=== PATIENT | male | born 1940 | race Hispanic/Latino ===

== ENCOUNTER 2017-12-10 13:18 | Inpatient (IN) | payer MEDICARE, BC ==
[2017-12-10 13:34] VITALS: BMI 34.7
[2017-12-10] MEDS ORDERED: Piperacill/Tazo 4.5gm in NS 4.5 GM/100 ML BAG IVPB STA (14:12)
[2017-12-10] MEDS ORDERED: Sodium Chloride 0.9% 500 ML IV STA (14:17)
--- NOTE | 2017-12-10 14:20 | ED PDOC ---
Arrival/HPI - General Chief Complaint: Fever Time Seen by Provider: 12/10/17 14:03 Historian: Patient - History of Present Illness Narrative History of Present Illness (Text): 12/10/17 14:21 pt p/w + ~ 1 day onset of not feeling well; pt states he has been bedriddened, and doesnt want to get up; pt states he is very weak/fatigued; pt states + chills/sweats, + shivers, noted fever in the ED; pt states severe body aches/ pain; and headaches (general), at most pain is 5/10; pt states no appetite, + nausea and vomited today; pt states no cp/sob, ? palpitations, no abd pain, no urinary/bowel changes, no rashes, no gross bleeding, no fall/trauma/sick contact , ? travel (to [place] pt contacted his PCP today and was directed to come to ED for further eval pt states no new rashes, no LOC, + dizziness/lightheadedness pt states no other complaints pt is here for further eval. PCP: Dr Ball Flu shot up to date pneumovac vaccine, up to date Time/Duration: 24 hours Symptom Onset: Sudden Symptom Course: Unchanged, Worsening Quality: Other (chills/sweats) Severity Level: 5, Moderate Activities at Onset: Rest Context: Home Past Medical History - Provider Review Nursing Documentation Reviewed: Yes - Travel History Have you recently traveled outside w/in the past 3 mons?: No - Past History Past History: No Previous - Infectious Disease Hx of Infectious Diseases: None - Reproductive Currently Lactating: No - Cardiac Hx Hypertension: Yes - Neurological Hx Paralysis: No - Hematological/Oncological Hx Blood Transfusions: No - Musculoskeletal/Rheumatological Hx Musculoskeletal Disorders: Yes - Psychiatric Hx Substance Use: No - Surgical History Other/Comment: bilateral knee replacement - Anesthesia Hx Anesthesia Reactions: No Hx Malignant Hyperthermia: No - Suicidal Assessment Feels Threatened In Home Enviroment: No Family/Social History - Physician Review Nursing Documentation Reviewed: Yes Family/Social History: No Known Family HX Smoking Status: Former Smoker Hx Alcohol Use: Yes (6 BEERS NIGHTLY) Hx Substance Use: No Hx Substance Use Treatment: No Allergies/Home Meds Allergies/Adverse Reactions: Allergies No Known Allergies Allergy (Verified 05/31/12 11:57) Home Medications: Home Meds Medication Instructions Recorded Confirmed RX: Amlodipine Besylate 5 mg PO DAILY 05/31/12 12/10/17 Review of Systems - Review of Systems Constitutional: Fatigue, Fevers, Night Sweats Eyes: Normal ENT: Normal Respiratory: Normal Cardiovascular: Normal Gastrointestinal: Nausea, Vomiting Genitourinary Male: Normal Musculoskeletal: Other (diffuse body pain) Skin: Normal Neurological: Headache, Dizziness. absent: Speech Changes, Facial Droop Endocrine: Normal Hemo/Lymphatic: Normal Psychiatric: Normal Physical Exam Vital Signs Reviewed: Yes Vital Signs Temp Pulse Resp BP Pulse Ox 12/10/17 17:20 99.5 F 80 18 136/74 95 12/10/17 13:18 101.7 F H 93 H 18 105/68 95 Temperature: Febrile Blood Pressure: Hypotensive Pulse: Regular Respiratory Rate: Normal Appearance: Positive for: Well-Appearing, Uncomfortable, Other (uncomfortable, resting in bed, alert/awake, GCS = 15, oriented x 3, cooperative) Pain Distress: Mild Mental Status: Positive for: Alert and Oriented X 3 - Systems Exam Head: Present: Atraumatic, Normocephalic Pupils: Present: PERRL, Other (no nystagmus, no photophobia, sclera anicteric, visual field intact b/l) Extroacular Muscles: Present: EOMI Conjunctiva: Present: Normal Ears: Present: Normal Mouth: Present: Dry, Other (fair dentitions, dry oral mucosa, no drooling/ stridor, no exudate/lesions, uvula/tongue are midline) Pharnyx: Present: Normal Nose (External): Present: Atraumatic Nose (Internal): Present: Normal Inspection Neck: Present: Normal Range of Motion, Trachea Midline, Other (no nuchal rigidity, no menigneal signs). No: Meningeal Signs, MIDLINE TENDERNESS Respiratory/Chest: Present: Clear to Auscultation, Good Air Exchange, Other ( CTA b/l, no w/r/r, no tachypenia, no accessory muscle use noted). No: Respiratory Distress Cardiovascular: Present: Regular Rate and Rhythm, Normal S1, S2. No: Murmurs Abdomen: Present: Normal Bowel Sounds, Other (well nourished male, no focal tenderness, no blanton's sign, no mcburney's point tenderness, no masses/rebound/ guarding/rigidity) Back: Present: Normal Inspection. No: CVA Tenderness, Midline Tenderness Upper Extremity: Present: Normal Inspection, Normal ROM, NORMAL PULSES, Neurovascularly Intact Lower Extremity: Present: Normal Inspection, NORMAL PULSES, Normal ROM, Neurovascularly Intact, Other (no gross deformities, + left lower leg skin erythema encompassing nearly 80% of body-surface area, no nettie's sign b/l, slight swelling noted to left lower leg (no pitting edema noted)). No: Nettie's Sign Neurological: Present: GCS=15, CN II-XII Intact, Speech Normal Skin: Present: Warm, Normal Color, Other (cap refill ~ 1 sec, as described above left lower ext skin changes; no lesions/ulcerations/petechiae) Psychiatric: Present: Alert, Oriented x 3 Medical Decision Making ED Course and Treatment: 12/10/17 14:19 Impression: fever/chills/sweats i have consider all the differential diagnosis regarding pt's chief medical complaints/clinical findings, including but are not limited to: fever/chills/ sweats A/P: left leg cellulitis, r/o other infec - labs - iv - cultures - xray - observe - supportive care 12/10/17 15:[address] Casillas, hospitalists partition setter, who is made aware of patients ED/medical presentation, agrees with admission; will see patient 1630 pt is doing well pt is not in any distress pt states he felt slightly improved pt is made aware of his medical results pt agrees with admission Re-evaluation Time: 17:09 Reassessment Condition: Improving,but remains with symptoms - Lab Interpretations Lab Results: 12/10/17 14:12 12/10/17 14:12 Lab Results 12/10/17 14:20: Influenza Typ A,B (EIA) Negative for flu a/b 12/10/17 14:12: Sodium 136, Chloride 102, Potassium 3.7, Carbon Dioxide 27, Anion Gap 12, BUN 20, Creatinine 1.1, Est GFR ( Amer) > 60, Est GFR (Non- Af Amer) > 60, Random Glucose 129 H, Calcium 9.5, Phosphorus 3.3, Magnesium 1.9 , Total Bilirubin 0.5, AST 40, ALT 32, Alkaline Phosphatase 56, Troponin I 0.02 , Total Protein 7.2, Albumin 3.8, Globulin 3.4, Albumin/Globulin Ratio 1.1 12/10/17 14:12: pO2 40, VBG pH 7.39, VBG pCO2 45.0, VBG HCO3 27.2, VBG Total CO2 28.6 H, VBG O2 Sat (Calc) 80.0 H, VBG Base Excess 1.7, VBG Potassium 3.6, Sodium 134.0, Chloride 102.0, Glucose 124 H, Lactate 1.1, FiO2 21.0, Venous Blood Potassium 3.6 12/10/17 14:12: PT 15.2 H, INR 1.33 H, APTT 33.5 12/10/17 14:12: WBC 13.8 H, RBC 3.92, Hgb 12.4 L, Hct 36.9 L, MCV 94.1, MCH 31.6 , MCHC 33.6, RDW 13.5, Plt Count 276, MPV 9.8, Gran % 91.8 H, Lymph % (Auto) 4.6 L, [place] % (Auto) 3.5, Eos % (Auto) 0.0 L, Baso % (Auto) 0.1, Gran # 12.67 H , Lymph # (Auto) 0.6 L, [place] # (Auto) 0.5, Eos # (Auto) 0.0, Baso # (Auto) 0.01 , Neutrophils % (Manual) 85 H, Band Neutrophils % 4 H, Lymphocytes % (Manual) 6 L, Atypical Lymphs % 3 H, Monocytes % (Manual) 2 I have reviewed the lab results: Yes Interpretation: All labs normal (slightly elevated WBCs) - RAD Interpretation Narrative RAD Interpretations (Text): 12/10/17 15:35 Chest X-ray: Creator : Sidney Farrar MD FINDINGS: LUNGS:No active pulmonary disease. PLEURA:No significant pleural effusion identified. No pneumothorax apparent. CARDIOVASCULAR:Normal. OSSEOUS STRUCTURES:No significant abnormalities. VISUALIZED UPPER ABDOMEN:Normal. OTHER FINDINGS:None. IMPRESSION: No active disease. 12/10/17 15:40 Tibia and Fibula x-ray: Creator : Sidney Farrar MD FINDINGS: BONES: There is a left knee prosthesis. There is no fracture or loosening around the prosthesis JOINT SPACES: Unremarkable. OTHER FINDINGS: None. IMPRESSION: Negative study Left leg Vascular duplex: NO DVT Radiology Orders: 12/10/17 14:13 CHEST TWO VIEWS (PA/LAT) [RAD] Stat 12/10/17 14:16 TIBIA FIBULA LEFT [RAD] Stat 12/10/17 14:17 DUPLEX LOWER EXTRM VEIN LEFT [US] Stat Jig Bore Operator: Radiologist - EKG Interpretation EKG Interpretation (Text): 12/10/17 14:20 NSR at 90 bpm, normal axis, no ectopy, diffuse low voltage inf leads, no st-t changes, ABNL EKG; no old ekg to compare with Interpreted by ED Physician: Yes Type: 12 lead EKG Comparison: No previous EKG avail. - Medication Orders Current Medication Orders: Acetaminophen (Tylenol 325mg Tab) 650 mg PO Q6H PRN PRN Reason: Fever >100.4 F Enoxaparin Sodium (Lovenox) 40 mg SC DAILY FITZ PRN Reason: Protocol Sodium Chloride (Sodium Chloride 0.9%) 1,000 mls @ 100 mls/hr IV .Q10H FITZ Last Admin: 12/10/17 15:22 Dose: 100 mls/hr eMAR Start Stop Document 12/10/17 15:22 SRE (Rec: 12/10/17 15:22 [id number] [id number]) Intravenous Solution Start Date 12/10/17 Start Time 15:22 Vancomycin HCl (Vancomycin 1gm) 1 gm in 250 mls @ 167 mls/hr IVPB Q12H FITZ PRN Reason: Protocol Piperacillin Sod/Tazobactam Sod (Zosyn 3.375 In Ns 100ml) 100 mls @ 200 mls/hr IVPB Q6 FITZ PRN Reason: Protocol Stop: 12/11/17 00:29 Discontinued Medications Piperacillin Sod/Tazobactam Sod (Zosyn 4.5 Gm In Ns 100ml) 4.5 gm in 100 mls @ 200 mls/hr IVPB STAT STA PRN Reason: Protocol Stop: 12/10/17 14:41 Last Admin: 12/10/17 15:21 Dose: 200 mls/hr eMAR Start Stop Document 12/10/17 15:21 SRE (Rec: 12/10/17 15:21 [id number]) Intravenous Solution Start Date 12/10/17 Start Time 15:21 End Date 12/10/17 End time 16:20 Total Infusion Time 59 Sodium Chloride (Sodium Chloride 0.9%) 500 mls @ 999 mls/hr IV .Q31M STA Stop: 12/10/17 14:47 Last Admin: 12/10/17 15:24 Dose: 999 mls/hr eMAR Start Stop Document 12/10/17 15:24 SRE (Rec: 12/10/17 15:25 SRE [id number]) Intravenous Solution Start Date 12/10/17 Start Time 14:30 End Date 12/10/17 End time 15:00 Total Infusion Time 30 Piperacillin Sod/Tazobactam Sod (Zosyn 3.375 In Ns 100ml) 100 mls @ 200 mls/hr IVPB Q6 FITZ PRN Reason: Protocol Stop: 12/11/17 00:29 Ibuprofen (Motrin Tab) 600 mg PO STAT STA Stop: 12/10/17 14:19 Last Admin: 12/10/17 15:00 Dose: 600 mg Disposition/Present on Arrival - Present on Arrival Any Indicators Present on Arrival: No History of DVT/PE: No History of Uncontrolled Diabetes: No Urinary Catheter: No History of Decub. Ulcer: No History Surgical Site Infection Following: None - Disposition Have Diagnosis and Disposition been Completed?: Yes Diagnosis: Left leg cellulitis, At risk for sepsis, Dehydration, Weakness Disposition: HOSPITALIZED Disposition Time: 16:00 Patient Plan: Admission Condition: STABLE
[2017-12-10 14:28] LABS: VENOUS BLOOD GAS BASE EXCESS 1.7 mmol/L (0.0-2.0); VENOUS BLOOD GAS PO2 40 mm/Hg (30-55); VENOUS BLOOD PH 7.39 (7.32-7.43)
[2017-12-10 14:34] LABS: BASO # 0.01 K/mm3 (0.0-2.0); BASO % 0.1 % (0.0-3.0); GRAN # 12.67 (1.4-6.5); GRAN % 91.8 % (50.0-68.0); HEMOGLOBIN 12.4 g/dL (14.0-18.0); LYMPH # 0.6 (1.2-3.4); LYMPH % 4.6 % (22.0-35.0); MEAN CELL VOLUME 94.1 fl (80.0-105.0); MEAN CORPUSCULAR HEMOGLOBIN 31.6 pg (25.0-35.0); MEAN CORPUSCULAR HGB CONC 33.6 g/dl (31.0-37.0); MEAN PLATELET VOLUME 9.8 fl (7.0-11.0); MONO # 0.5 (0.1-0.6); MONO % 3.5 % (1.0-6.0); PLATELET COUNT 276 10^3/uL (120.0-450.0); RBC 3.92 10^6/uL (3.5-6.1); RED CELL DISTRIBUTION WIDTH 13.5 % (11.5-14.5); WHITE BLOOD COUNT 13.8 10^3/ul (4.5-11.0)
[2017-12-10 14:38] LABS: ALB/GLOB RATIO 1.1 (1.1-1.8); ALBUMIN 3.8 g/dL (3.0-4.8); ALT/SGPT 32 U/L (7-56); AST/SGOT 40 U/L (17-59); BLOOD UREA NITROGEN 20 mg/dL (7-21); CALCIUM 9.5 mg/dL (8.4-10.5); GFR AFRICAN-AMERICAN > 60; GFR NON-AFRICAN AMERICAN > 60
[2017-12-10 14:48] LABS: INR 1.33 (0.93-1.08); PARTIAL THROMBOPLASTIN TIME 33.5 Seconds (25.1-36.5); PROTHROMBIN TIME 15.2 SECONDS (9.4-12.5)
[2017-12-10 14:49] LABS: TROPONIN I 0.02 ng/mL
[2017-12-10 15:12] LABS: ATYPICAL LYMPHOCYTE 3 % (0.0-0.0); BAND 4 % (0-2); LYMPHOCYTE 6 % (22.0-35.0); MONOCYTE 2 % (1.0-6.0); NEUTROPHIL 85 % (50.0-70.0)
[2017-12-10] MEDS: Sodium Chloride 0.9% 1,000 ML IV SCH ×2 (15:20→15:22)
--- NOTE | 2017-12-10 15:36 | RAD ---
HISTORY: fever/chills COMPARISON: No prior. TECHNIQUE: Chest PA and lateral FINDINGS: LUNGS: No active pulmonary disease. PLEURA: No significant pleural effusion identified. No pneumothorax apparent. CARDIOVASCULAR: Normal. OSSEOUS STRUCTURES: No significant abnormalities. VISUALIZED UPPER ABDOMEN: Normal. OTHER FINDINGS: None. IMPRESSION: No active disease.
--- NOTE | 2017-12-10 15:37 | RAD ---
PROCEDURE: Radiographs of the left tibia and fibula. HISTORY: extensive left leg erythema COMPARISON: None available. TECHNIQUE: Frontal and lateral views obtained. FINDINGS: BONES: There is a left knee prosthesis. There is no fracture or loosening around the prosthesis JOINT SPACES: Unremarkable. OTHER FINDINGS: None. IMPRESSION: Negative study
--- NOTE | 2017-12-10 17:29 | CP.PCM.HP ---
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 He called his PMD who told him to go immediately to the ED. Relevant elements of the history are the patient admits to being relatively bed- bound as of recent has had decreased PO intake and having severe generealized joint pain. He denies any trauma to the left leg, bug bites, unusual exposure, IV drug abuse, etc. He does have a chronically swollen left leg. Otherwise, 12 point ROS is negative PMH: Hypertension, prostate cancer with osseos metastasis to the spine and ribs , left knee prosthesis PMD: Dr. 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 history Present on Admission - Present on Admission Any Indicators Present on Admission: No Review of Systems - Review of Systems All systems: reviewed and no additional remarkable complaints except (as per HPI ) Past Patient History - Infectious Disease Hx of Infectious Diseases: None - Past Social History Smoking Status: Former Smoker - CARDIAC Hx Hypertension: Yes - NEUROLOGICAL Hx Paralysis: No - HEMATOLOGICAL/ONCOLOGICAL Hx Blood Transfusions: No - MUSCULOSKELETAL/RHEUMATOLOGICAL Hx Musculoskeletal Disorders: Yes - PSYCHIATRIC Hx Substance Use: No - SURGICAL HISTORY Other/Comment: bilateral knee replacement - ANESTHESIA Hx Anesthesia Reactions: No Hx Malignant Hyperthermia: No Meds Allergies/Adverse Reactions: Allergies Allergy/AdvReac Type Severity Reaction Status Date / Time No Known Allergies Allergy Verified 05/31/12 11:57 Physical Exam - Constitutional Appears: Non-toxic, No Acute Distress - Head Exam Head Exam: ATRAUMATIC, NORMOCEPHALIC - Eye Exam Eye Exam: EOMI, Normal appearance - ENT Exam ENT Exam: Mucous Membranes Dry - Neck Exam Neck exam: Positive for: Normal Inspection - Respiratory Exam Respiratory Exam: Clear to Auscultation Bilateral, NORMAL BREATHING PATTERN. absent: Accessory Muscle Use - Cardiovascular Exam Cardiovascular Exam: RRR, +S1, +S2 - GI/Abdominal Exam GI & Abdominal Exam: Normal Bowel Sounds, Soft. absent: Distended - Extremities Exam Extremities exam: Negative for: calf tenderness Additional comments: left lower extremity from ankle to below the knee is swollen, with blanchable erythema, pulses intact bilaterally - Back Exam Back exam: NORMAL INSPECTION. absent: CVA tenderness (L), CVA tenderness (R) - Neurological Exam Neurological exam: Alert, Oriented x3 - Psychiatric Exam Psychiatric exam: Normal Affect, Normal Mood - Skin Skin Exam: Erythema (left leg, from ankle to knee) Results - Vital Signs Recent Vital Signs: Last Vital Signs Temp 99.5 F 12/10/17 17:20 Pulse 80 12/10/17 17:20 Resp 18 12/10/17 17:20 BP 136/74 12/10/17 17:20 Pulse Ox 95 12/10/17 17:20 - Labs Result Diagrams: 12/10/17 14:12 12/10/17 14:12 Assessment & Plan - Assessment and Plan (Free Text) Assessment: 77 year old male with a past medical history of hypertension, smoking, bad osteoarthritis, prostate cancer with bony metastasis to ribs and thoracolumbar spine, and recent immobility who presents with fever, generalized joint ache, left lower extremity cellulitis. He was given Zosyn in the ED. Infectious disease was consulted and Vancomycin was added. Plan: 1) left lower extremity cellulitis - Vancomycin, Zosyn, tylenol for fever - Procalcitonin ordered - UA, urine culture, chest X-ray (-), left tibia/fibula radiographs negative, uric acid (-) - Infectious disease 2) GI/DVT prophylaxis -Pepcid - Lovenox - Date & Time Date: 12/10/17 Time: 18:00 <Isaías Casillas - Last Filed: 12/11/17 16:26> Results - Vital Signs Recent Vital Signs: Last Vital Signs Temp 100.2 F H 12/11/17 07:30 Pulse 99 H 12/11/17 07:30 Resp 20 12/11/17 07:30 BP 142/84 12/11/17 07:30 Pulse Ox 94 L 12/11/17 07:30 - Labs Result Diagrams: 12/11/17 06:35 12/11/17 06:35 Labs: Laboratory Results - last 24 hr 12/10/17 12/11/17 12/11/17 21:53 06:35 06:35 WBC 10.5 D RBC 3.53 Hgb 11.0 L Hct 33.4 L MCV 94.6 MCH 31.2 MCHC 32.9 RDW 13.7 Plt Count 230 MPV 10.0 Gran % 86.8 H Lymph % (Auto) 7.1 L [place] % (Auto) 6.0 Eos % (Auto) 0.0 L Baso % (Auto) 0.1 Gran # 9.12 H Lymph # (Auto) 0.8 L [place] # (Auto) 0.6 Eos # (Auto) 0.0 Baso # (Auto) 0.01 Sodium 137 Potassium 3.4 L Chloride 104 Carbon Dioxide 25 Anion Gap 12 BUN 17 Creatinine 0.9 Est GFR ( Amer) > 60 Est GFR (Non-Af Amer) > 60 Random Glucose 98 Calcium 8.9 Total Bilirubin 0.4 AST 41 ALT 32 Alkaline Phosphatase 53 Total Protein 6.5 Albumin 3.2 Globulin 3.2 Albumin/Globulin Ratio 1.0 L Urine Color Yellow Urine Appearance Sl cloudy Urine pH 6.0 Ur Specific [place] 1.015 Urine Protein Trace H Urine Glucose (UA) Negative Urine Ketones Negative Urine Blood Moderate H Urine Nitrate Negative Urine Bilirubin Negative Urine Urobilinogen 1.0 H Ur Leukocyte Esterase Negative Urine RBC 1 - 3 Urine WBC Negative Attending/Attestation - Attestation I have personally seen and examined this patient.: Yes I have fully participated in the care of the patient.: Yes I have reviewed all pertinent clinical information: Yes Notes (Text): I have seen and examined the patient at bedside. 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 He was found to have cellulitis of right leg. There are no open wounds or laceration. Will do cultures and procal. Patient has leukocytosis. Will start vancomycin and zosyn. Will consult ID. Counselling provided regarding alcohol cessation. Discussed in detail with patients daughter. Upon discharge patient will follow up with Dr Navarrete. Dr Isaías Casillas
[2017-12-10] MEDS ORDERED: Piperacillin/Tazobact 3.375 gm 100 ML IVPB SCH ×2 (18:00→21:00)
[2017-12-10] MEDS: Enoxaparin 40 mg Syringe SC SCH (18:15)
[2017-12-10] MEDS: Vancomycin 1gm in NS 250ml 1 GM/250 ML BAG IVPB SCH (18:16)
--- NOTE | 2017-12-10 19:12 | US ---
PROCEDURE: Left lower extremity venous US HISTORY: Leg pain and swelling. Evaluate for DVT. PHYSICIAN(S): Saeid Kong MD. TECHNIQUE: Duplex sonography and color-flow Doppler with graded compression were used to evaluate the deep venous system of the left lower extremity. The exam is limited by edema. FINDINGS: The visualized deep venous system of the left lower extremity is sonographically normal and compressible. Normal wave forms and augmentation are seen. There is no sonographic evidence for deep venous thrombosis in the visualized segments of the left lower extremity. IMPRESSION: 1. No sonographic evidence for deep venous thrombosis in the visualized segments of the left lower extremity.
--- NOTE | 2017-12-10 20:42 | CARD ---
APPROVED REPORT EKG Measurement Heart [id number] <Conclusion> Unusual P axis, possible ectopic atrial rhythm Abnormal ECG
[2017-12-10 21:59] LABS: URINE BILIRUBIN NEGATIVE (NEGATIVE); URINE BLOOD MODERATE (NEGATIVE); URINE GLUCOSE (UA) NEGATIVE (NEGATIVE); URINE LEUKOCYTE ESTERASE NEGATIVE Leu/uL (NEGATIVE); URINE PROTEIN TRACE mg/dL (<30 mg/dL)
[2017-12-10 22:03] LABS: URINE APPEARANCE SL CLOUDY (CLEAR); URINE COLOR YELLOW (YELLOW)
[2017-12-10 22:05] LABS: URINE WBC NEGATIVE /hpf (0-6)
[2017-12-10] MEDS: cefTRIAXone 1 gm 1 GM/100 ML BAG IVPB SCH (23:28)
[2017-12-11] MEDS: Vancomycin 1gm in NS 250ml 1 GM/250 ML BAG IVPB SCH ×2 (04:58→17:34)
[2017-12-11 07:09] LABS: BASO # 0.01 K/mm3 (0.0-2.0); BASO % 0.1 % (0.0-3.0); GRAN # 9.12 (1.4-6.5); GRAN % 86.8 % (50.0-68.0); LYMPH # 0.8 (1.2-3.4); LYMPH % 7.1 % (22.0-35.0); MEAN CELL VOLUME 94.6 fl (80.0-105.0); MEAN CORPUSCULAR HEMOGLOBIN 31.2 pg (25.0-35.0); MEAN CORPUSCULAR HGB CONC 32.9 g/dl (31.0-37.0); MONO # 0.6 (0.1-0.6); RBC 3.53 10^6/uL (3.5-6.1); RED CELL DISTRIBUTION WIDTH 13.7 % (11.5-14.5); WHITE BLOOD COUNT 10.5 10^3/ul (4.5-11.0)
[2017-12-11 07:17] LABS: ALBUMIN 3.2 g/dL (3.0-4.8); ALT/SGPT 32 U/L (7-56); AST/SGOT 41 U/L (17-59); BLOOD UREA NITROGEN 17 mg/dL (7-21); CALCIUM 8.9 mg/dL (8.4-10.5); GFR AFRICAN-AMERICAN > 60; GFR NON-AFRICAN AMERICAN > 60
[2017-12-11] MEDS ORDERED: Potassium Chloride 20 mEq ER Tab PO ONE (09:01)
[2017-12-11] MEDS: Enoxaparin 40 mg Syringe SC SCH (09:40)
[2017-12-11] MEDS: cefTRIAXone 1 gm 1 GM/100 ML BAG IVPB SCH (09:40)
[2017-12-11] MEDS: Sodium Chloride 0.9% 1,000 ML IV SCH (15:43)
--- NOTE | 2017-12-11 16:28 | CP.PCM.PN ---
<SkyeSd Naldo - Last Filed: 12/11/17 16:30> Subjective - Date & Time of Evaluation Date of Evaluation: 12/11/17 Time of Evaluation: 08:30 - Subjective Subjective: Medicine progress note: Dr. Tessy Casillas Patient seen and examined at bedside. Per nursing, patient had fevers overnight and complained of mild pain but did not request any medications. Other than that, patient is very pleasant and is doing well. Objective - Vital Signs/Intake and Output Vital Signs (last 24 hours): Temp Pulse Resp BP Pulse Ox 100.2 F H 99 H 20 142/84 94 L 12/11/17 07:30 12/11/17 07:30 12/11/17 07:30 12/11/17 07:30 12/11/17 07:30 Intake and Output: 12/11/17 12/11/17 06:59 18:59 Intake Total 720 Output Total 1125 Balance -405 - Medications Medications: Current Medications Acetaminophen (Tylenol 325mg Tab) 650 mg PO Q6H PRN PRN Reason: Fever >100.4 F Last Admin: 12/11/17 12:12 Dose: 650 mg Enoxaparin Sodium (Lovenox) 40 mg SC DAILY [facility] PRN Reason: Protocol Last Admin: 12/11/17 09:40 Dose: 40 mg Famotidine (Pepcid) 40 mg PO HS [facility] Last Admin: 12/10/17 21:34 Dose: 40 mg Sodium Chloride (Sodium Chloride 0.9%) 1,000 mls @ 100 mls/hr IV .Q10H [facility] Last Admin: 12/11/17 15:43 Dose: 100 mls/hr Vancomycin HCl (Vancomycin 1gm) 1 gm in 250 mls @ 167 mls/hr IVPB Q12H [facility] PRN Reason: Protocol Last Admin: 12/11/17 04:58 Dose: 167 mls/hr Ceftriaxone Sodium (Rocephin 1 Gram Ivpb) 1 gm in 100 mls @ 100 mls/hr IVPB DAILY [facility] PRN Reason: Protocol Stop: 12/19/17 23:01 Last Admin: 12/11/17 09:40 Dose: 100 mls/hr - Labs Labs: 12/11/17 06:35 12/11/17 06:35 PT 15.2 SECONDS (9.4-12.5) H 12/10/17 14:12 INR 1.33 (0.93-1.08) H 12/10/17 14:12 APTT 33.5 Seconds (25.1-36.5) 12/10/17 14:12 - Constitutional Appears: Well - Head Exam Head Exam: ATRAUMATIC, NORMAL INSPECTION, NORMOCEPHALIC - Eye Exam Eye Exam: EOMI, Normal appearance, PERRL Pupil Exam: NORMAL ACCOMODATION, PERRL - ENT Exam ENT Exam: Mucous Membranes Moist, Normal Exam - Neck Exam Neck Exam: Full ROM, Normal Inspection. absent: Lymphadenopathy - Respiratory Exam Respiratory Exam: Clear to Ausculation Bilateral, NORMAL BREATHING PATTERN - Cardiovascular Exam Cardiovascular Exam: REGULAR RHYTHM, +S1, +S2. absent: Murmur - GI/Abdominal Exam GI & Abdominal Exam: Soft, Normal Bowel Sounds. absent: Tenderness - Extremities Exam Extremities Exam: Full ROM, Normal Capillary Refill, Normal Inspection. 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 He was given Zosyn in the ED. Sepsis possibly secondary to Left lower extremity cellulitis - Tachycardia, WBC on admission, Fever with suspected source of infection - Vancomycin, Zosyn, tylenol for fever, NS @ 100 - Procalcitonin: .37; UA: negative; Blood cultures: negative; Urine culture: pending; Chest X-ray negative; XR Fib/Tib negative - Ultrasound Duplex negative - Infectious diseases consult: Dr. Crow: Vanc and Rocephin Possible Ectopic Atrial Rhythm - Repeat EKG ordered - No previous EKG to compare on file Hypokalemia - Repleted Hypertension - Lisinopril (changed from Norvasc due to Lower extremity swelling) Prostate Cancer with bony metastasis - No acute intervention, follows up outpatient - Pain management: tylenol prn for right now, patient not complaining of pain GI/DVT prophylaxis -Pepcid - Lovenox <Isaías Casillas - Last Filed: 12/11/17 18:32> Objective - Vital Signs/Intake and Output Vital Signs (last 24 hours): Temp Pulse Resp BP Pulse Ox 100.2 F H 85 20 107/66 94 L 12/11/17 07:30 12/11/17 17:34 12/11/17 07:30 12/11/17 17:34 12/11/17 07:30 Intake and Output: 12/11/17 12/11/17 06:59 18:59 Intake Total 720 Output Total 1125 Balance -405 - Medications Medications: Current Medications Acetaminophen (Tylenol 325mg Tab) 650 mg PO Q6H PRN PRN Reason: Fever >100.4 F Last Admin: 12/11/17 12:12 Dose: 650 mg Enoxaparin Sodium (Lovenox) 40 mg SC DAILY [facility] PRN Reason: Protocol Last Admin: 12/11/17 09:40 Dose: 40 mg Famotidine (Pepcid) 40 mg PO HS [facility] Last Admin: 12/10/17 21:34 Dose: 40 mg Sodium Chloride (Sodium Chloride 0.9%) 1,000 mls @ 100 mls/hr IV .Q10H [facility] Last Admin: 12/11/17 15:43 Dose: 100 mls/hr Vancomycin HCl (Vancomycin 1gm) 1 gm in 250 mls @ 167 mls/hr IVPB Q12H [facility] PRN Reason: Protocol Last Admin: 12/11/17 17:34 Dose: 167 mls/hr Ceftriaxone Sodium (Rocephin 1 Gram Ivpb) 1 gm in 100 mls @ 100 mls/hr IVPB DAILY [facility] PRN Reason: Protocol Stop: 12/19/17 23:01 Last Admin: 12/11/17 09:40 Dose: 100 mls/hr Lisinopril (Zestril) 5 mg PO DAILY [facility] Last Admin: 12/11/17 17:34 Dose: 5 mg - Labs Labs: 12/11/17 06:35 12/11/17 06:35 PT 15.2 SECONDS (9.4-12.5) H 12/10/17 14:12 INR 1.33 (0.93-1.08) H 12/10/17 14:12 APTT 33.5 Seconds (25.1-36.5) 12/10/17 14:12 Attending/Attestation - Attestation I have personally seen and examined this patient.: Yes I have fully participated in the care of the patient.: Yes I have reviewed all pertinent clinical information, including history, physical exam and plan: Yes Notes (Text): I have seen and examined the patient at bedside. 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 He was found to have cellulitis of right leg. He didn 't have any fevers overnight. Leukocytosis has resolved. Will continue vancomycin and zosyn. Cultures are pending. Counselling provided regarding alcohol cessation. Discussed in detail with patients daughter. Upon discharge patient will follow up with Dr Navarrete. Dr Isaías Casillas
--- NOTE | 2017-12-11 19:15 | CARD ---
APPROVED REPORT EKG Measurement Heart [id number] <Conclusion> Sinus rhythm with premature atrial complexes Otherwise normal ECG
--- NOTE | 2017-12-12 04:00 | CON ---
DATE: 12/11/2017 LOCATION: The patient is seen in room 564, bed 1. CHIEF COMPLAINT: Fevers and chills, 1 to 2 days' duration. HISTORY OF PRESENT ILLNESS: This is a 77-year-old male with obesity, BMI of 34; hypertension, osteoarthritis, prostate cancer with mets to the spine, who was admitted to the the emergency room with fever and complaining of left leg erythema. Patient denies any trauma. No nausea or vomiting. No chest pain. There is chill. PAST MEDICAL HISTORY: Significant for hypertension, osteoarthritis, prostatic cancer with mets to the spine. PAST SURGICAL HISTORY: Significant for bilateral knee surgery. ALLERGIES: PATIENT HAS NO KNOWN ALLERGIES. MEDICATIONS AT HOME: Include the patient to be on amlodipine. PHYSICAL EXAMINATION: GENERAL: Patient is in bed, answering questions appropriately. VITAL SIGNS: Temperature of 100.4, T-max is 101.7; heart rate of 99, it was earlier and down to 85 and respiratory of 20, and blood pressure is 140/80. HEENT: Unremarkable.. NECK: Supple. LUNGS: Have decreased breath sounds. HEART: Normal S1 and S2. ABDOMEN: Soft, nontender. EXTREMITIES: Examination of the left leg is erythematous, warm to touch. No discharge. There is significant erythema and edema. LABORATORY DATA: Reveals a white count of 13,800, hemoglobin of 12, platelets of 276. Coagulation is noted. BUN of 20, creatinine of 1.1, glucose is 129, procalcitonin is 0.37. Urinalysis is noted. Influenza is negative. Microbiology reveals the blood cultures are negative. ASSESSMENT AND PLAN: This is a 77-year-old male with sepsis with a left leg cellulitis in the setting of hypertension, osteoarthritis, prostate cancer with metastases to the spine in a patient who was alocohol abuser, ex-smoker. We will treat the patient with vancomycin and Receptin, pending culture results. The blood cultures are reportedly negative thus far and x-ray of the tibia and fibula is noted to be a negative study. Patient's chest x-ray is noted. Dr. Casillas's history and physical examination is reviewed. We will follow with you on vancomycin and Rocephin. We will make further recommendations. Dl Holland MD [facility] # [id number]
[2017-12-12] MEDS: Vancomycin 1gm in NS 250ml 1 GM/250 ML BAG IVPB SCH ×2 (04:49→17:09)
[2017-12-12 07:09] LABS: BASO # 0.01 K/mm3 (0.0-2.0); BASO % 0.1 % (0.0-3.0); EOS % 0.6 % (1.5-5.0); GRAN # 5.54 (1.4-6.5); GRAN % 79.5 % (50.0-68.0); HEMOGLOBIN 11.1 g/dL (14.0-18.0); LYMPH # 0.9 (1.2-3.4); LYMPH % 13.2 % (22.0-35.0); MEAN CELL VOLUME 93.9 fl (80.0-105.0); MEAN CORPUSCULAR HEMOGLOBIN 30.9 pg (25.0-35.0); MEAN CORPUSCULAR HGB CONC 32.9 g/dl (31.0-37.0); MEAN PLATELET VOLUME 10.1 fl (7.0-11.0); MONO # 0.5 (0.1-0.6); MONO % 6.6 % (1.0-6.0); RBC 3.59 10^6/uL (3.5-6.1); RED CELL DISTRIBUTION WIDTH 13.6 % (11.5-14.5)
[2017-12-12 07:33] LABS: ALBUMIN 3.2 g/dL (3.0-4.8); ALT/SGPT 22 U/L (7-56); AST/SGOT 33 U/L (17-59); BLOOD UREA NITROGEN 12 mg/dL (7-21); CALCIUM 8.9 mg/dL (8.4-10.5); GFR AFRICAN-AMERICAN > 60; GFR NON-AFRICAN AMERICAN > 60
[2017-12-12] MEDS: Enoxaparin 40 mg Syringe SC SCH (10:00)
[2017-12-12] MEDS: cefTRIAXone 1 gm 1 GM/100 ML BAG IVPB SCH (10:02)
--- NOTE | 2017-12-12 12:48 | CP.PCM.PN ---
<SkyeSd Naldo - Last Filed: 12/12/17 12:44> Subjective - Date & Time of Evaluation Date of Evaluation: 12/12/17 Time of Evaluation: 12:44 - Subjective Subjective: Medicine progress note: Dr. Tessy Casillas Patient seen and examined at bedside, patient states that he still feels generalized fatigue and body aches. Patient states that his bony pain is well controlled with motrin and tylenol. He states that his left lower extremity cellulitis is still painful. Patient would like for us to speak to his daughter when she visits him next. Objective - Vital Signs/Intake and Output Vital Signs (last 24 hours): Temp Pulse Resp BP Pulse Ox 99.2 F 77 18 130/76 97 12/12/17 07:30 12/12/17 07:30 12/12/17 07:30 12/12/17 10:03 12/12/17 07:30 Intake and Output: 12/12/17 12/12/17 06:59 18:59 Intake Total 600 Output Total 1625 Balance -1025 - Medications Medications: Current Medications Acetaminophen (Tylenol 325mg Tab) 650 mg PO Q6H PRN PRN Reason: Fever >100.4 F Last Admin: 12/11/17 20:00 Dose: 650 mg Enoxaparin Sodium (Lovenox) 40 mg SC DAILY [facility] PRN Reason: Protocol Last Admin: 12/12/17 10:00 Dose: 40 mg Famotidine (Pepcid) 40 mg PO HS [facility] Last Admin: 12/11/17 22:23 Dose: 40 mg Sodium Chloride (Sodium Chloride 0.9%) 1,000 mls @ 100 mls/hr IV .Q10H [facility] Last Admin: 12/11/17 15:43 Dose: 100 mls/hr Vancomycin HCl (Vancomycin 1gm) 1 gm in 250 mls @ 167 mls/hr IVPB Q12H [facility] PRN Reason: Protocol Last Admin: 12/12/17 04:49 Dose: 167 mls/hr Ceftriaxone Sodium (Rocephin 1 Gram Ivpb) 1 gm in 100 mls @ 100 mls/hr IVPB DAILY [facility] PRN Reason: Protocol Stop: 12/19/17 23:01 Last Admin: 12/12/17 10:02 Dose: 100 mls/hr Lisinopril (Zestril) 5 mg PO DAILY [facility] Last Admin: 12/12/17 10:03 Dose: 5 mg - Labs Labs: 12/12/17 06:40 12/12/17 06:40 PT 15.2 SECONDS (9.4-12.5) H 12/10/17 14:12 INR 1.33 (0.93-1.08) H 12/10/17 14:12 APTT 33.5 Seconds (25.1-36.5) 12/10/17 14:12 - Constitutional Appears: Well - Head Exam Head Exam: ATRAUMATIC, NORMAL INSPECTION, NORMOCEPHALIC - Eye Exam Eye Exam: EOMI, Normal appearance, PERRL Pupil Exam: NORMAL ACCOMODATION, PERRL - ENT Exam ENT Exam: Mucous Membranes Moist, Normal Exam - Neck Exam Neck Exam: Full ROM, Normal Inspection. absent: Lymphadenopathy - Respiratory Exam Respiratory Exam: Clear to Ausculation Bilateral, NORMAL BREATHING PATTERN - Cardiovascular Exam Cardiovascular Exam: REGULAR RHYTHM, +S1, +S2. absent: Murmur - GI/Abdominal Exam GI & Abdominal Exam: Soft, Normal Bowel Sounds. absent: Tenderness - Extremities Exam Extremities Exam: Full ROM, Normal Capillary Refill, Normal Inspection (see additional comments). absent: Joint Swelling, Pedal Edema Additional comments: LLE still shows swelling and erythema, but the erythema is improving since admission. 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 He was given Zosyn in the ED. Generalized Fatigue with Bodyaches possibly 2/2 bone mets VS electrolyte abnormalities - Patient still complaining of generalized pain; in light of recent bone scan revealing bone mets, this could be etiology - Mg/Phos ordered in light of history of alcoholism - both are within normal limits Sepsis possibly secondary to Left lower extremity cellulitis - Tachycardia, WBC on admission, Fever with suspected source of infection - Patient has now been afebrile, white count has resolved - Vancomycin, Zosyn, tylenol for fever, NS @ 100 - Procalcitonin: .37; UA: negative; Blood cultures: negative; Urine culture: pending - Chest X-ray negative; XR Fib/Tib negative - Ultrasound Duplex negative - Infectious diseases consult: Dr. Crow: Vanc and Rocephin Possible Ectopic Atrial Rhythm - resolved - Repeat EKG ordered, and shows NSR with PAC's - No previous EKG to compare on file Hypokalemia - Repleted Hypertension - Lisinopril (changed from Norvasc due to Lower extremity swelling) Prostate Cancer with bony metastasis - No acute intervention, follows up outpatient. States that his oncology physician at [facility] told him that his CA is in remission - Pain management: tylenol prn for right now, patient not complaining of pain GI/DVT prophylaxis -Pepcid - Lovenox <Isaías Casillas B - Last Filed: 12/14/17 10:43> Objective - Vital Signs/Intake and Output Vital Signs (last 24 hours): Temp Pulse Resp BP Pulse Ox 98.6 F 74 20 145/90 96 12/14/17 07:30 12/14/17 09:24 12/14/17 07:30 12/14/17 09:24 12/14/17 07:30 Intake and Output: 12/14/17 12/14/17 06:59 18:59 Intake Total 240 Output Total 400 Balance -160 - Labs Labs: 12/13/17 06:30 12/13/17 06:30 PT 15.2 SECONDS (9.4-12.5) H 12/10/17 14:12 INR 1.33 (0.93-1.08) H 12/10/17 14:12 APTT 33.5 Seconds (25.1-36.5) 12/10/17 14:12 Attending/Attestation - Attestation I have personally seen and examined this patient.: Yes I have fully participated in the care of the patient.: Yes I have reviewed all pertinent clinical information, including history, physical exam and plan: Yes Notes (Text): I have seen and examined the patient at bedside. 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 He was found to have cellulitis of right leg. He didn 't have any fevers overnight. Leukocytosis has resolved. Will continue vancomycin and zosyn. Cultures are negative so far. LLE still appear erythematous and swollen. Counselling provided regarding alcohol cessation. Discussed in detail with patients daughter. Upon discharge patient will follow up with Dr Navarrete. Dr Isaías Casillas
[2017-12-12] MEDS: Clotrimazole 1% Cream(30 gm) TOP SCH (17:09)
[2017-12-12] MEDS: Sodium Chloride 0.9% 1,000 ML IV SCH (17:10)
--- NOTE | 2017-12-13 00:43 | PN ---
DATE: 12/12/2017 SUBJECTIVE: Patient was in bed, in no acute distress when seen earlier this morning. He is still complaining of leg pain. He was seen in 564, bed 1. PHYSICAL EXAMINATION: VITAL SIGNS: Temperature is 98, T-max yesterday was 100.2; heart rate of 91; respiratory rate of 20; blood pressure is 130/80. HEENT: Unremarkable. NECK: Supple. LUNGS: Have decreased breath sounds. HEART: Normal S1, S2. ABDOMEN: Soft, nontender. LABORATORY DATA: Reveals a white count of 7000, hemoglobin of 11, platelets of 231. Chemistries reveal a BUN of 12, creatinine of 0.7. Urinalysis is noted and serology is noted. Microbiology reveals the blood cultures are negative, urine cultures are negative. ASSESSMENT AND PLAN: This is a 77-year-old male with sepsis with left leg cellulitis in the setting of hypertension, osteoarthritis, prostate cancer with mets to the spine, alcohol abuse, ex-smoker; on vancomycin and Rocephin. The leg is somewhat improved, although still significant erythema secondary to tinea and patient is on Lotrimin cream, ceftriaxone, and vancomycin with negative blood cultures and urine cultures. We will follow the patient's improvement of the leg clinically. Dl Holland MD
[2017-12-13] MEDS: Vancomycin 1gm in NS 250ml 1 GM/250 ML BAG IVPB SCH ×2 (05:15→17:10)
[2017-12-13 07:01] LABS: EOS # 0.1 (0.0-0.7); EOS % 1.7 % (1.5-5.0); GRAN # 3.72 (1.4-6.5); GRAN % 69.8 % (50.0-68.0); HEMOGLOBIN 10.6 g/dL (14.0-18.0); LYMPH # 1.1 (1.2-3.4); LYMPH % 20.6 % (22.0-35.0); MEAN CELL VOLUME 92.8 fl (80.0-105.0); MEAN CORPUSCULAR HEMOGLOBIN 30.6 pg (25.0-35.0); MEAN PLATELET VOLUME 9.7 fl (7.0-11.0); MONO # 0.4 (0.1-0.6); MONO % 7.9 % (1.0-6.0); RBC 3.46 10^6/uL (3.5-6.1); RED CELL DISTRIBUTION WIDTH 13.6 % (11.5-14.5); WHITE BLOOD COUNT 5.3 10^3/ul (4.5-11.0)
[2017-12-13 07:46] LABS: ALBUMIN 3.2 g/dL (3.0-4.8); ALT/SGPT 24 U/L (7-56); AST/SGOT 34 U/L (17-59); BLOOD UREA NITROGEN 10 mg/dL (7-21); CALCIUM 9.2 mg/dL (8.4-10.5); GFR AFRICAN-AMERICAN > 60; GFR NON-AFRICAN AMERICAN > 60
[2017-12-13] MEDS ORDERED: Potassium Chloride 20 mEq ER Tab PO ONE ×2 (07:47→12:00)
[2017-12-13] MEDS: Enoxaparin 40 mg Syringe SC SCH (09:26)
[2017-12-13] MEDS: cefTRIAXone 1 gm 1 GM/100 ML BAG IVPB SCH (09:26)
[2017-12-13] MEDS: Clotrimazole 1% Cream(30 gm) TOP SCH ×2 (09:31→17:10)
--- NOTE | 2017-12-13 16:22 | CP.PCM.PN ---
<Sd Cheung Naldo - Last Filed: 12/13/17 16:15> Subjective - Date & Time of Evaluation Date of Evaluation: 12/13/17 Time of Evaluation: 05:00 - Subjective Subjective: Medicine progress note: Dr. Tessy Casillas Patient seen and examined at bedside. No new complaints, patient states that pain is well controlled. Daughter at bedside, explained to her why we would like to keep the patient for one more day. Objective - Vital Signs/Intake and Output Vital Signs (last 24 hours): Temp Pulse Resp BP Pulse Ox 98.1 F 79 20 144/88 99 12/13/17 00:45 12/13/17 09:26 12/13/17 00:45 12/13/17 09:26 12/13/17 00:45 Intake and Output: 12/13/17 12/13/17 06:59 18:59 Intake Total 760 960 Output Total 2100 900 Balance -1340 60 - Medications Medications: Current Medications Acetaminophen (Tylenol 325mg Tab) 650 mg PO Q6H PRN PRN Reason: Fever >100.4 F Last Admin: 12/11/17 20:00 Dose: 650 mg Clotrimazole (Lotrimin 1%) 0 gm TOP BID [facility] Stop: 12/22/17 18:01 Last Admin: 12/13/17 09:31 Dose: 1 applic Enoxaparin Sodium (Lovenox) 40 mg SC DAILY [facility] PRN Reason: Protocol Last Admin: 12/13/17 09:26 Dose: 40 mg Famotidine (Pepcid) 40 mg PO HS [facility] Last Admin: 12/12/17 21:50 Dose: 40 mg Ceftriaxone Sodium (Rocephin 1 Gram Ivpb) 1 gm in 100 mls @ 100 mls/hr IVPB DAILY [facility] PRN Reason: Protocol Stop: 12/19/17 23:01 Last Admin: 12/13/17 09:26 Dose: 100 mls/hr Vancomycin HCl (Vancomycin 1gm) 1 gm in 250 mls @ 167 mls/hr IVPB Q12H [facility] PRN Reason: Protocol Last Admin: 12/13/17 05:15 Dose: 167 mls/hr Lisinopril (Zestril) 5 mg PO DAILY [facility] Last Admin: 12/13/17 09:26 Dose: 5 mg - Labs Labs: 12/13/17 06:30 03/30/18 06:30 PT 15.2 SECONDS (9.4-12.5) H 12/10/17 14:12 INR 1.33 (0.93-1.08) H 12/10/17 14:12 APTT 33.5 Seconds (25.1-36.5) 12/10/17 14:12 - Constitutional Appears: Well - Head Exam Head Exam: ATRAUMATIC, NORMAL INSPECTION, NORMOCEPHALIC - Eye Exam Eye Exam: EOMI, Normal appearance, PERRL Pupil Exam: NORMAL ACCOMODATION, PERRL - ENT Exam ENT Exam: Mucous Membranes Moist, Normal Exam - Neck Exam Neck Exam: Full ROM, Normal Inspection. absent: Lymphadenopathy - Respiratory Exam Respiratory Exam: Clear to Ausculation Bilateral, NORMAL BREATHING PATTERN - Cardiovascular Exam Cardiovascular Exam: REGULAR RHYTHM, +S1, +S2. absent: Murmur - GI/Abdominal Exam GI & Abdominal Exam: Soft, Normal Bowel Sounds. absent: Tenderness - Extremities Exam Extremities Exam: Full ROM, Normal Capillary Refill, Normal Inspection. absent : Joint Swelling, Pedal Edema - Back Exam Back Exam: NORMAL INSPECTION - Neurological Exam Neurological Exam: Alert, Awake, CN II-XII Intact, Normal Gait, Oriented x3 - Psychiatric Exam Psychiatric exam: Normal Affect, Normal Mood - Skin Skin Exam: Dry, Intact, Normal Color, Warm Assessment and Plan - Assessment and Plan (Free Text) Assessment: Assessment and plan 77 year old male with a past medical history of hypertension, smoking, osteoarthritis, prostate cancer with questionable bony metastasis to ribs and thoracolumbar spine (but daughter states that a repeat bone scan at [facility] showed no metastasis), and recent immobility who presents with fever, generalized joint ache, left lower extremity cellulitis. He was given Zosyn in the ED. Generalized Fatigue with Bodyaches - Resolving - Mg/Phos ordered in light of history of alcoholism - both are within normal limits Sepsis possibly secondary to Left lower extremity cellulitis - Resolving - Tachycardia, WBC on admission, Fever with suspected source of infection - resolving - Patient has now been afebrile, white count has resolved - Vancomycin, Zosyn, tylenol for fever, NS @ 100 - Procalcitonin: .37; UA: negative; Blood cultures: negative; Urine culture: pending - Chest X-ray negative; XR Fib/Tib negative - Ultrasound Duplex negative - Infectious diseases consult: Dr. Crow: Vanc and Rocephin - DC Home on PO Augmentin and Doxy for 7 days tomorrow Possible Ectopic Atrial Rhythm - resolved - Repeat EKG ordered, and shows NSR with PAC's - No previous EKG to compare on file Hypokalemia - Repleted Hypertension - Lisinopril (changed from Norvasc due to Lower extremity swelling) Prostate Cancer with questionable bony metastasis - No acute intervention, follows up outpatient. States that his oncology physician at [facility] told him that his CA is in remission - Pain management: tylenol prn for right now, patient not complaining of pain GI/DVT prophylaxis -Pepcid - Lovenox Dispo: Patient possibly ready for discharge tomorrow on Doxy and Augmentin PO for 7 days <Isaías Casillas - Last Filed: 12/14/17 10:45> Objective - Vital Signs/Intake and Output Vital Signs (last 24 hours): Temp Pulse Resp BP Pulse Ox 98.6 F 74 20 145/90 96 12/14/17 07:30 12/14/17 09:24 12/14/17 07:30 12/14/17 09:24 12/14/17 07:30 Intake and Output: 12/14/17 12/14/17 06:59 18:59 Intake Total 240 Output Total 400 Balance -160 - Labs Labs: 12/13/17 06:30 12/13/17 06:30 PT 15.2 SECONDS (9.4-12.5) H 12/10/17 14:12 INR 1.33 (0.93-1.08) H 12/10/17 14:12 APTT 33.5 Seconds (25.1-36.5) 12/10/17 14:12 Attending/Attestation - Attestation I have personally seen and examined this patient.: Yes I have fully participated in the care of the patient.: Yes I have reviewed all pertinent clinical information, including history, physical exam and plan: Yes Notes (Text): I have seen and examined the patient at bedside. 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 He was found to have cellulitis of left leg. Hehas remained afebrile. Leukocytosis has resolved. Will continue vancomycin and zosyn. Cultures are negative so far. LLE appears slightly better. Erythema is resolving. Counselling provided regarding alcohol cessation. Discussed in detail with patients daughter. Upon discharge patient will follow up with Dr Navarrete. Dr Isaías Casillas
[2017-12-13 16:52] VITALS: TEMP 98.6
--- NOTE | 2017-12-13 21:24 | CP.PCM.PN ---
Subjective - Date & Time of Evaluation Date of Evaluation: 12/13/17 Time of Evaluation: 10:45 - Subjective Subjective: Comfortable, no fevers, much improved swelling and pain on the left leg. Objective - Vital Signs/Intake and Output Vital Signs (last 24 hours): Temp Pulse Resp BP Pulse Ox 98.6 F 77 18 124/87 97 12/13/17 14:00 12/13/17 14:00 12/13/17 14:00 12/13/17 14:00 12/13/17 14:00 Intake and Output: 12/13/17 12/14/17 18:59 06:59 Intake Total 960 Output Total 900 Balance 60 - Medications Medications: Current Medications Acetaminophen (Tylenol 325mg Tab) 650 mg PO Q6H PRN PRN Reason: Fever >100.4 F Last Admin: 12/11/17 20:00 Dose: 650 mg Clotrimazole (Lotrimin 1%) 0 gm TOP BID FITZ Stop: 12/22/17 18:01 Last Admin: 12/13/17 17:10 Dose: 1 applic Enoxaparin Sodium (Lovenox) 40 mg SC DAILY FITZ PRN Reason: Protocol Last Admin: 12/13/17 09:26 Dose: 40 mg Famotidine (Pepcid) 40 mg PO HS FITZ Last Admin: 12/12/17 21:50 Dose: 40 mg Ceftriaxone Sodium (Rocephin 1 Gram Ivpb) 1 gm in 100 mls @ 100 mls/hr IVPB DAILY FITZ PRN Reason: Protocol Stop: 12/19/17 23:01 Last Admin: 12/13/17 09:26 Dose: 100 mls/hr Vancomycin HCl (Vancomycin 1gm) 1 gm in 250 mls @ 167 mls/hr IVPB Q12H FITZ PRN Reason: Protocol Last Admin: 12/13/17 17:10 Dose: 167 mls/hr Lisinopril (Zestril) 5 mg PO DAILY [facility] Last Admin: 12/13/17 09:26 Dose: 5 mg - Labs Labs: 12/13/17 06:30 12/13/17 06:30 PT 15.2 SECONDS (9.4-12.5) H 12/10/17 14:12 INR 1.33 (0.93-1.08) H 12/10/17 14:12 APTT 33.5 Seconds (25.1-36.5) 12/10/17 14:12 - Constitutional Appears: Chronically Ill - Head Exam Head Exam: NORMAL INSPECTION - Respiratory Exam Respiratory Exam: Decreased Breath Sounds - Cardiovascular Exam Cardiovascular Exam: +S1, +S2 - GI/Abdominal Exam GI & Abdominal Exam: Soft. 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
[2017-12-14] MEDS: Vancomycin 1gm in NS 250ml 1 GM/250 ML BAG IVPB SCH (05:22)
[2017-12-14 07:50] VITALS: PULSE 74; RESP 20; O2SAT 96
[2017-12-14] MEDS: cefTRIAXone 1 gm 1 GM/100 ML BAG IVPB SCH (09:25)
[2017-12-14] MEDS: Enoxaparin 40 mg Syringe SC SCH (09:25)
[2017-12-14] MEDS: Clotrimazole 1% Cream(30 gm) TOP SCH (09:25)
[2017-12-14 09:26] VITALS: BP 145/90
--- NOTE | 2017-12-14 10:33 | CP.PCM.DIS ---
Provider - Provider Date of Admission: 12/10/17 15:48 Attending physician: Isaías Casillas MD Primary care physician: Uri Ball MD Hospital Course - Lab Results Lab Results: Micro Results 12/10/17 15:53 Blood Blood Culture - Preliminary NO GROWTH AFTER 3 DAYS 12/10/17 21:53 Urine,Clean Catch Urine Culture - Final No Growth (<1,000 CFU/ML) Most Recent Lab Values WBC 5.3 10^3/ul (4.5-11.0) D 12/13/17 06:30 RBC 3.46 10^6/uL (3.5-6.1) L 12/13/17 06:30 Hgb 10.6 g/dL (14.0-18.0) L 12/13/17 06:30 Hct 32.1 % (42.0-52.0) L 12/13/17 06:30 MCV 92.8 fl (80.0-105.0) 12/13/17 06:30 MCH 30.6 pg (25.0-35.0) 12/13/17 06:30 MCHC 33.0 g/dl (31.0-37.0) 12/13/17 06:30 RDW 13.6 % (11.5-14.5) 12/13/17 06:30 Plt Count 237 10^3/uL (120.0-450.0) 12/13/17 06:30 MPV 9.7 fl (7.0-11.0) 12/13/17 06:30 Gran % 69.8 % (50.0-68.0) H 12/13/17 06:30 Lymph % (Auto) 20.6 % (22.0-35.0) L 12/13/17 06:30 [place] % (Auto) 7.9 % (1.0-6.0) H 12/13/17 06:30 Eos % (Auto) 1.7 % (1.5-5.0) 12/13/17 06:30 Baso % (Auto) 0.0 % (0.0-3.0) 12/13/17 06:30 Gran # 3.72 (1.4-6.5) 12/13/17 06:30 Lymph # (Auto) 1.1 (1.2-3.4) L 12/13/17 06:30 [place] # (Auto) 0.4 (0.1-0.6) 12/13/17 06:30 Eos # (Auto) 0.1 (0.0-0.7) 12/13/17 06:30 Baso # (Auto) 0.00 K/mm3 (0.0-2.0) 12/13/17 06:30 Neutrophils % (Manual) 85 % (50.0-70.0) H 12/10/17 14:12 Band Neutrophils % 4 % (0-2) H 12/10/17 14:12 Lymphocytes % (Manual) 6 % (22.0-35.0) L 12/10/17 14:12 Atypical Lymphs % 3 % (0.0-0.0) H 12/10/17 14:12 Monocytes % (Manual) 2 % (1.0-6.0) 12/10/17 14:12 PT 15.2 SECONDS (9.4-12.5) H 12/10/17 14:12 INR 1.33 (0.93-1.08) H 12/10/17 14:12 APTT 33.5 Seconds (25.1-36.5) 12/10/17 14:12 pO2 40 mm/Hg (30-55) 12/10/17 14:12 VBG pH 7.39 (7.32-7.43) 12/10/17 14:12 VBG pCO2 45.0 (40-60) 12/10/17 14:12 VBG HCO3 27.2 mmol/l (21-28) 12/10/17 14:12 VBG Total CO2 28.6 mmol.L (22-28) H 12/10/17 14:12 VBG O2 Sat (Calc) 80.0 % (40-65) H 12/10/17 14:12 VBG Base Excess 1.7 mmol/L (0.0-2.0) 12/10/17 14:12 VBG Potassium 3.6 mmol/L (3.6-5.2) 12/10/17 14:12 Sodium 134.0 mmol/L (132-148) 12/10/17 14:12 Chloride 102.0 mmol/L (98-107) 12/10/17 14:12 Glucose 124 mg/dl (75-110) H 12/10/17 14:12 Lactate 1.1 mmol/L (0.7-2.1) 12/10/17 14:12 FiO2 21.0 % 12/10/17 14:12 Sodium 139 mmol/L (132-148) 12/13/17 06:30 Potassium 3.5 mmol/L (3.6-5.0) L 12/13/17 06:30 Chloride 104 mmol/L (98-107) 12/13/17 06:30 Carbon Dioxide 27 mmol/L (21-33) 12/13/17 06:30 Anion Gap 12 (10-20) 12/13/17 06:30 BUN 10 mg/dL (7-21) 12/13/17 06:30 Creatinine 0.7 mg/dl (0.8-1.5) L 12/13/17 06:30 Est GFR ( Amer) > 60 12/13/17 06:30 Est GFR (Non-Af Amer) > 60 12/13/17 06:30 Random Glucose 101 mg/dL (70-110) 12/13/17 06:30 Uric Acid 3.8 mg/dL (3.5-8.5) 12/10/17 14:12 Calcium 9.2 mg/dL (8.4-10.5) 12/13/17 06:30 Phosphorus 3.7 mg/dL (2.5-4.5) 12/13/17 06:30 Magnesium 2.0 mg/dL (1.7-2.2) 12/13/17 06:30 Total Bilirubin 0.5 mg/dL (0.2-1.3) 12/13/17 06:30 AST 34 U/L (17-59) 12/13/17 06:30 ALT 24 U/L (7-56) 12/13/17 06:30 Alkaline Phosphatase 75 U/L (38-126) 12/13/17 06:30 Troponin I 0.02 ng/mL 12/10/17 14:12 Total Protein 6.5 g/dL (5.8-8.3) 12/13/17 06:30 Albumin 3.2 g/dL (3.0-4.8) 12/13/17 06:30 Globulin 3.3 gm/dL 12/13/17 06:30 Albumin/Globulin Ratio 1.0 (1.1-1.8) L 12/13/17 06:30 Procalcitonin 0.37 NG/ML (0.19-0.49) 12/10/17 14:12 Venous Blood Potassium 3.6 mmol/L (3.6-5.2) 12/10/17 14:12 Urine Color Yellow (YELLOW) 12/10/17 21:53 Urine Appearance Sl cloudy (CLEAR) 12/10/17 21:53 Urine pH 6.0 (4.7-8.0) 12/10/17 21:53 Ur Specific [place] 1.015 (1.005-1.035) 12/10/17 21:53 Urine Protein Trace mg/dL (<30 mg/dL) H 12/10/17 21:53 Urine Glucose (UA) Negative mg/dL (NEGATIVE) 12/10/17 21:53 Urine Ketones Negative mg/dL (NEGATIVE) 12/10/17 21:53 Urine Blood Moderate (NEGATIVE) H 12/10/17 21:53 Urine Nitrate Negative (NEGATIVE) 12/10/17 21:53 Urine Bilirubin Negative (NEGATIVE) 12/10/17 21:53 Urine Urobilinogen 1.0 E.U./dL (<1 E.U./dL) H 12/10/17 21:53 Ur Leukocyte Esterase Negative [place]/uL (NEGATIVE) 12/10/17 21:53 Urine RBC 1 - 3 /hpf (0-2) 12/10/17 21:53 Urine WBC Negative /hpf (0-6) 12/10/17 21:53 Influenza Typ A,B (EIA) Negative for flu a/b (NEGATIVE) 12/10/17 14:20 Discharge Exam - Head Exam Head Exam: NORMAL INSPECTION Discharge Plan - Discharge Medications Prescriptions: Amoxicillin/Clavulanate [Augmentin 875 MG-125 MG] 1 tab PO BID #7 tab Doxycycline Hyclate 100 mg PO BID #14 capsule - Follow Up Plan Condition: STABLE Disposition: HOME/ ROUTINE Instructions: Dehydration (DC), Dehydration (GEN), Cellulitis (DC), Cellulitis (GEN) Additional Instructions: You are being discharged to home. Please follow up with your primary care physician in his/her office. 1. Please take your medications as prescribed 2. Should your rash worsen or if you start spiking fevers please come back to the ED Referrals: Uri Ball MD [Primary Care Provider] -
--- NOTE | 2017-12-14 16:27 | PN ---
DATE: 12/14/2017 SUBJECTIVE: The patient was seen earlier this morning, no acute distress, nontoxic, doing better. No pain in the leg. PHYSICAL EXAMINATION VITAL SIGNS: Temperature is 98, blood pressure is 140/80, respiratory rate 20, heart rate of 74. HEENT: Within normal limit. NECK: Supple. LUNGS: Decreased breath sounds. HEART: Normal S1 and S2. ABDOMEN: Soft, nontender. LABORATORY DATA: Reveals the patient's BUN is 10, creatinine is 0.7, procalcitonin 0.37 and serology of influenza is negative. Microbiology, the blood cultures are negative. Examination of the leg is greatly improved. ASSESSMENT AND PLAN: This is a 77-year-old male who was seen early this morning in room 564, bed 1 with sepsis, left leg cellulitis in the setting of hypertension, osteoarthritis, prostate cancer with metastases to the bone, alcohol abuse, ex-smoker, on vancomycin and Rocephin, may be discharged on p.o. antibiotic as discussed with . Dl Holland MD
== END 2017-12-14 10:35 | disposition home or self-care (01) | DRG 872 ==
LOC: ED 13:18 → ERH 15:48 → 5RNO 19:07
PROVIDERS: ADMIT Hospitalist; ATTEND Hospitalist
DX: A41.9 Sepsis, unspecified organism (principal); L03.115 Cellulitis of right lower limb; L03.116 Cellulitis of left lower limb; C79.51 Secondary malignant neoplasm of bone; I10 Essential (primary) hypertension; E86.0 Dehydration; C61 Malignant neoplasm of prostate; E87.6 Hypokalemia; B35.3 Tinea pedis; F10.21 Alcohol dependence, in remission; M47.9 Spondylosis, unspecified; M19.90 Unspecified osteoarthritis, unspecified site; Z96.653 Presence of artificial knee joint, bilateral; E66.9 Obesity, unspecified; Z68.34 Body mass index [BMI] 34.0-34.9, adult; Z87.891 Personal history of nicotine dependence

== ENCOUNTER 2018-03-28 14:21 | Inpatient (IN) | payer MEDICARE, BC ==
[2018-03-28 14:53] VITALS: BMI 34.9
[2018-03-28] MEDS ORDERED: Vancomycin 1gm in NS 250ml 1 GM/250 ML BAG IVPB STA (14:55)
[2018-03-28] MEDS ORDERED: Piperacillin/Tazobact 3.375 gm 100 ML IVPB STA (14:55)
[2018-03-28] MEDS ORDERED: Morphine 4 mg/ml ISec IVP STA (14:57)
--- NOTE | 2018-03-28 15:03 | ED PDOC ---
Arrival/HPI - General Chief Complaint: Lower Extremity Problem/Injury Time Seen by Provider: 03/28/18 14:54 Historian: Patient, Family - History of Present Illness Narrative History of Present Illness (Text): 03/28/18 15:00 77 y/o male, pmh including htn/OA/prostate CA with thoracolumbar metasis, surgical history of bilateral knee replacement in 2005, nkda, bib daughter c/o fever and chills x 2 days with lt. lower extremity redness and pain with out fall or trauma. Pt. stated that he has been having fever and chills since last night, visited by the daughter this morning which he has lt. calf redness and swelling below the knee, able to walk and move the lt. knee joint without stiffness or swelling to the left knee, no night sweat, no rash, no numbness or tingling, no other medical or psychological complaints. Past Medical History - Provider Review Nursing Documentation Reviewed: Yes - Past History Past History: No Previous - Infectious Disease Hx of Infectious Diseases: None - Reproductive Currently Lactating: No - Cardiac Hx Hypertension: Yes - Pulmonary Other/Comment: ex smoker - Neurological Hx Paralysis: No - Hematological/Oncological Hx Blood Transfusions: No - Musculoskeletal/Rheumatological Hx Arthritis: Yes - Genitourinary/Gynecological Hx Prostate Problems: Yes (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) - Psychiatric Hx Emotional Abuse: No Hx Physical Abuse: No Hx Substance Use: No - Surgical History Other/Comment: bilateral knee replacement with L knee prosthesis - Anesthesia Hx Anesthesia Reactions: No Hx Malignant Hyperthermia: No - Suicidal Assessment Feels Threatened In Home Enviroment: No Family/Social History - Physician Review Nursing Documentation Reviewed: Yes Family/Social History: Unknown Family HX Smoking Status: Former Smoker Hx Alcohol Use: Yes (6 BEERS NIGHTLY) Hx Substance Use: No Hx Substance Use Treatment: No Allergies/Home Meds Allergies/Adverse Reactions: Allergies No Known Allergies Allergy (Verified 05/31/12 11:57) Home Medications: Home Meds Medication Instructions Recorded Confirmed amLODIPine [Norvasc] 5 mg PO DAILY 03/28/18 03/28/18 Review of Systems - Review of Systems Constitutional: Fevers, Other (+chills) Eyes: Vision Changes Respiratory: absent: SOB, Cough Gastrointestinal: absent: Abdominal Pain, Nausea, Vomiting Genitourinary Male: absent: Dysuria Musculoskeletal: absent: Arthralgias, Back Pain Skin: Rash, Pruritis, Skin Lesions, Cellulitis. absent: Laceration, Abscess, Ulcer Neurological: absent: Headache, Dizziness Psychiatric: absent: Anxiety, Depression, Suicidal Ideation Physical Exam Vital Signs Reviewed: Yes Vital Signs Temp Pulse Resp BP Pulse Ox 03/28/18 17:36 75 17 120/76 99 03/28/18 17:00 86 18 114/70 97 03/28/18 15:04 99.2 F 92 H 18 116/74 97 03/28/18 14:47 99.2 F 92 H 20 116/74 99 Temperature: Afebrile Blood Pressure: Normal Pulse: Regular Respiratory Rate: Normal Appearance: Positive for: Well-Appearing, Non-Toxic, Comfortable Pain Distress: Moderate Mental Status: Positive for: Alert and Oriented X 3 - Systems Exam Head: Present: Atraumatic, Normocephalic Pupils: Present: PERRL Extroacular Muscles: Present: EOMI Conjunctiva: Present: Normal Mouth: Present: Moist Mucous Membranes Neck: Present: Normal Range of Motion Respiratory/Chest: Present: Clear to Auscultation, Good Air Exchange. No: Respiratory Distress, Accessory Muscle Use Cardiovascular: Present: Regular Rate and Rhythm, Normal S1, S2, Other (+pedal edema 2+ on LLE and RLE 1+). No: Murmurs Abdomen: No: Tenderness, Distention, Peritoneal Signs Back: Present: Normal Inspection Upper Extremity: Present: Normal Inspection. No: Cyanosis, Edema Lower Extremity: Present: Normal Inspection, Neurovascularly Intact, Other ( bilateral anterior knee scars noted with no signs of infection. ). No: Edema, Tenderness Neurological: Present: GCS=15, CN II-XII Intact, Speech Normal, Motor Func Grossly Intact, Gait Normal, Memory Normal Skin: Present: Warm, Dry, Rashes (Lt. proximal tibia/fibula below the knee noted to have swelling and erythematous/warmth circumferential cellulitis noted to the lt. the proximal tibia/fibula region, no laceraton or visible foreign bodies. ), Normal Color Psychiatric: Present: Alert, Oriented x 3, Normal Insight, Normal Concentration Medical Decision Making ED Course and Treatment: 03/28/18 15:03 Differential: Cellulitis vs. Sepsis vs. Rhabdomylosis vs. Pedal edema vs. CHF -Labs/blood culture/ua -ekg -cxr/lt.tibia/fibula/ankle xray -LLE Venuous doppler -IV vancomy/zosyn/morphine 4mg -Observe and reasses 03/28/18 16:32 -EKG: NSR @ 87 BPM, no St elevation mak depression, no T wave inversion. -Lt. tibia/fibula xray: Prior total knee arthroplasty. Partially imaged lateral subtalar dislocation. -Lt.ankle xray: Lateral subtalar dislocation, limited evaluation for fracture ( note: there is no trauma history. as per patient, this is chronic) -LLE Venuous doppler: as preliminary report, no acute DVT -Chest xray: No active disease. -Labs show wbc 17.6 and BUN 25 (pt. eating and drinking well), BNP 749 with no comparison. -UA show no UTI. -Lactic acid 1.6, not a severe sepsis criteria but does meet for SIRS -I discussed with the family and patient about this ER visit labs/radiology study, agreed on admission -I discussed with hospitalist Dr. Muse which she will notify Dr. Traylor, agreed to admit this case, will admit the patient and they will follow up any pending labs/radiology studies. -I discussed with Dr. Diaz and he will put in the admission. 03/28/18 17:28 -Admitting resident on the bed side, discussed about all xray imaging result, discussed about lt. ankle which appear to be chronic as there is no bony tenderness and he has no pain walking, admitting team will follow up with the lt. ankle chronic dislocation. - Lab Interpretations Lab Results: 03/28/18 15:40 03/28/18 15:40 Lab Results 03/28/18 15:40: WBC 17.3 H D, RBC 3.85, Hgb 12.3 L, Hct 36.3 L, MCV 94.3, MCH 31.9, MCHC 33.9, RDW 14.5, Plt Count 264, MPV 9.8, Gran % 95.5 H, Lymph % (Auto ) 2.4 L, [place] % (Auto) 2.0, Eos % (Auto) 0.0 L, Baso % (Auto) 0.1, Gran # 16.54 H, Lymph # (Auto) 0.4 L, [place] # (Auto) 0.3, Eos # (Auto) 0.0, Baso # (Auto) 0.01 , Neutrophils % (Manual) 86 H, Lymphocytes % (Manual) 10 L, Monocytes % (Manual ) 2, Eosinophils % (Manual) 2, Platelet Evaluation Normal 03/28/18 15:40: pO2 34, VBG pH 7.32, VBG pCO2 55.0, VBG HCO3 28.3 H, VBG Total CO2 30.0 H, VBG O2 Sat (Calc) 67.5 H, VBG Base Excess 1.1, VBG Potassium 4.2, Sodium 138.0, Chloride 105.0, Glucose 121 H, Lactate 1.6, FiO2 21.0, Venous Blood Potassium 4.2 03/28/18 15:40: Sodium 141, Chloride 103, Potassium 4.1, Carbon Dioxide 26, Anion Gap 15, BUN 25 H, Creatinine 1.0, Est GFR ( Amer) > 60, Est GFR ( Non-Af Amer) > 60, Random Glucose 118 H, Calcium 9.2, Magnesium 1.8, Total Bilirubin 0.7, AST 31, ALT 28, Alkaline Phosphatase 74, NT-Pro-B Natriuret Pep 749 H, Total Protein 7.4, Albumin 4.2, Globulin 3.2, Albumin/Globulin Ratio 1.3 I have reviewed the lab results: Yes - RAD Interpretation Radiology Orders: 03/28/18 14:55 CHEST PORTABLE [RAD] Stat ANKLE LEFT 3 VIEWS ROUTINE [RAD] Stat TIBIA FIBULA LEFT [RAD] Stat DUPLEX LOWER EXTRM VEIN LEFT [US] Stat -Lt. tibia/fibula xray: Date of service: 03/28/2018 PROCEDURE: Radiographs of the left tibia and fibula. HISTORY: lt. ankle/tibia/fibular swelling, cellulitis, gas? COMPARISON: None available. TECHNIQUE: Frontal and lateral views obtained. FINDINGS: BONES: No fracture or destructive lesion. JOINT SPACES: Prior total knee arthroplasty. Partially imaged lateral subtalar dislocation. OTHER FINDINGS: None. IMPRESSION: Prior total knee arthroplasty. Partially imaged lateral subtalar dislocation. -Lt.ankle xray: Date of service: 03/28/2018 PROCEDURE: Left Ankle Radiographs. HISTORY: lt. ankle/tibia/fibular swelling, cellulitis, gas? COMPARISON: None FINDINGS: BONES: Osteopenia. Limited evaluation for fracture. JOINTS: Lateral subtalar dislocation SOFT TISSUES: Normal. OTHER FINDINGS: None. IMPRESSION: Lateral subtalar dislocation, limited evaluation for fracture. -LLE Venuous doppler: as preliminary report, no acute DVT -Chest xray Date of service: 03/28/2018 HISTORY: medical clearance, admission COMPARISON: Chest radiograph dated 02/24/2018. FINDINGS: LUNGS: No active pulmonary disease. PLEURA: No significant pleural effusion identified, no pneumothorax apparent. CARDIOVASCULAR: Atherosclerotic aortic calcifications. Cardiomediastinal silhouette stably enlarged. OSSEOUS STRUCTURES: Unchanged. VISUALIZED UPPER ABDOMEN: Normal. OTHER FINDINGS: None. IMPRESSION: No active disease. Research Technician: Radiologist - EKG Interpretation EKG Interpretation (Text): 03/28/18 15:12 NSR @ 87 BPM, no St elevation mak depression, no T wave inversion. Interpreted by ED Physician: Yes Type: 12 lead EKG - Medication Orders Current Medication Orders: Discontinued Medications Acetaminophen (Tylenol 325mg Tab) 650 mg PO STAT STA Stop: 03/28/18 14:58 Last Admin: 03/28/18 15:48 Dose: 650 mg Vancomycin HCl (Vancomycin 1gm) 1 gm in 250 mls @ 167 mls/hr IVPB STAT STA PRN Reason: Protocol Stop: 03/28/18 16:24 Last Admin: 03/28/18 16:20 Dose: 167 mls/hr eMAR Start Stop Document 03/28/18 16:20 SF (Rec: 03/28/18 17:34 SF [id number]) Intravenous Solution Start Date 03/28/18 Start Time 16:20 End Date 03/28/18 End time 17:50 Total Infusion Time 90 Piperacillin Sod/Tazobactam Sod (Zosyn 3.375 In Ns 100ml) 100 mls @ 200 mls/hr IVPB STAT STA PRN Reason: Protocol Stop: 03/28/18 15:24 Last Admin: 03/28/18 15:47 Dose: 200 mls/hr eMAR Start Stop Document 03/28/18 15:47 SF (Rec: 03/28/18 15:48 SF [id number]) Intravenous Solution Start Date 03/28/18 Start Time 15:47 End Date 03/28/18 End time 16:17 Total Infusion Time 30 Morphine Sulfate (Morphine) 4 mg IVP STAT STA Stop: 03/28/18 14:58 Last Admin: 03/28/18 15:48 Dose: 4 mg MAR Pain Assessment Document 03/28/18 15:48 SF (Rec: 03/28/18 15:48 SF [facility] [id number] Pain Reassessment Is this a pain reassessment? Yes Sleep Is patient sleeping during reassessment? No Presence of Pain Presence of Pain Yes IVP Administration Document 03/28/18 15:48 SF (Rec: 03/28/18 15:48 SF [id number]) Charges for Administration # of IVP Administrations 1 - PA / WAISTLINE JOINER OVERLOCK / Resident Statement MD/DO has reviewed & agrees with the documentation as recorded. Disposition/Present on Arrival - Present on Arrival Any Indicators Present on Arrival: No History of DVT/PE: No History of Uncontrolled Diabetes: No Urinary Catheter: No History of Decub. Ulcer: No History Surgical Site Infection Following: None - Disposition Have Diagnosis and Disposition been Completed?: Yes Diagnosis: Left leg cellulitis, Leukocytosis, Dehydration, Elevated brain natriuretic peptide (BNP) level, Abnormal x-ray Disposition: HOSPITALIZED Disposition Time: 15:11 Patient Plan: Admission Patient Problems: Current Active Problems Problem Status Onset Abnormal x-ray Acute Dehydration Acute Elevated brain natriuretic peptide (BNP) level Acute Left leg cellulitis Acute Leukocytosis Acute Condition: STABLE
[2018-03-28 16:01] LABS: BASO # 0.01 K/mm3 (0.0-2.0); BASO % 0.1 % (0.0-3.0); GRAN # 16.54 (1.4-6.5); GRAN % 95.5 % (50.0-68.0); HEMOGLOBIN 12.3 g/dL (14.0-18.0); LYMPH # 0.4 (1.2-3.4); LYMPH % 2.4 % (22.0-35.0); MEAN CELL VOLUME 94.3 fl (80.0-105.0); MEAN CORPUSCULAR HEMOGLOBIN 31.9 pg (25.0-35.0); MEAN CORPUSCULAR HGB CONC 33.9 g/dl (31.0-37.0); MEAN PLATELET VOLUME 9.8 fl (7.0-11.0); MONO # 0.3 (0.1-0.6); PLATELET COUNT 264 10^3/uL (120.0-450.0); RBC 3.85 10^6/uL (3.5-6.1); RED CELL DISTRIBUTION WIDTH 14.5 % (11.5-14.5); WHITE BLOOD COUNT 17.3 10^3/ul (4.5-11.0)
[2018-03-28 16:03] LABS: VENOUS BLOOD GAS BASE EXCESS 1.1 mmol/L (0.0-2.0); VENOUS BLOOD GAS PO2 34 mm/Hg (30-55); VENOUS BLOOD PH 7.32 (7.32-7.43)
[2018-03-28 16:12] LABS: ALB/GLOB RATIO 1.3 (1.1-1.8); ALBUMIN 4.2 g/dL (3.0-4.8); ALT/SGPT 28 U/L (7-56); AST/SGOT 31 U/L (17-59); BLOOD UREA NITROGEN 25 mg/dL (7-21); CALCIUM 9.2 mg/dL (8.4-10.5); GFR AFRICAN-AMERICAN > 60; GFR NON-AFRICAN AMERICAN > 60
[2018-03-28 16:21] LABS: B-TYPE NATRIURETIC PEPTIDE 749 pg/mL (0-450)
[2018-03-28 16:35] LABS: EOSINOPHIL 2 % (0.0-3.0); LYMPHOCYTE 10 % (22.0-35.0); MONOCYTE 2 % (1.0-6.0); NEUTROPHIL 86 % (50.0-70.0); PLATELET ESTIMATE NORMAL (NORMAL)
--- NOTE | 2018-03-28 17:16 | RAD ---
Date of service: 03/28/2018 PROCEDURE: Left Ankle Radiographs. HISTORY: lt. ankle/tibia/fibular swelling, cellulitis, gas? COMPARISON: None FINDINGS: BONES: Osteopenia. Limited evaluation for fracture. JOINTS: Lateral subtalar dislocation SOFT TISSUES: Normal. OTHER FINDINGS: None. IMPRESSION: Lateral subtalar dislocation, limited evaluation for fracture.
--- NOTE | 2018-03-28 17:17 | RAD ---
Date of service: 03/28/2018 PROCEDURE: Radiographs of the left tibia and fibula. HISTORY: lt. ankle/tibia/fibular swelling, cellulitis, gas? COMPARISON: None available. TECHNIQUE: Frontal and lateral views obtained. FINDINGS: BONES: No fracture or destructive lesion. JOINT SPACES: Prior total knee arthroplasty. Partially imaged lateral subtalar dislocation. OTHER FINDINGS: None. IMPRESSION: Prior total knee arthroplasty. Partially imaged lateral subtalar dislocation.
--- NOTE | 2018-03-28 17:23 | RAD ---
Date of service: 03/28/2018 HISTORY: medical clearance, admission COMPARISON: Chest radiograph dated 02/24/2018. FINDINGS: LUNGS: No active pulmonary disease. PLEURA: No significant pleural effusion identified, no pneumothorax apparent. CARDIOVASCULAR: Atherosclerotic aortic calcifications. Cardiomediastinal silhouette stably enlarged. OSSEOUS STRUCTURES: Unchanged. VISUALIZED UPPER ABDOMEN: Normal. OTHER FINDINGS: None. IMPRESSION: No active disease.
--- NOTE | 2018-03-28 17:26 | CARD ---
APPROVED REPORT Date of service: 03/28/2018 EKG Measurement Heart [id number] <Conclusion> Normal sinus rhythm Normal ECG
[2018-03-28 17:43] LABS: PH,URINE 5.5 (4.7-8.0); URINE BILIRUBIN NEGATIVE (NEGATIVE); URINE BLOOD NEGATIVE (NEGATIVE); URINE GLUCOSE (UA) NEGATIVE (NEGATIVE); URINE LEUKOCYTE ESTERASE NEGATIVE Leu/uL (NEGATIVE); URINE PROTEIN TRACE mg/dL (<30 mg/dL); URINE UROBILINOGEN 0.2 E.U./dL (<1 E.U./dL)
[2018-03-28 17:44] LABS: URINE APPEARANCE CLEAR (CLEAR); URINE COLOR DARK YELLOW (YELLOW)
[2018-03-28 17:51] LABS: URINE BACTERIA NEG (NEG); URINE EPITHELIAL CELLS 0 - 2 /hpf (0-5); URINE RBC 0 - 2 /hpf (0-2); URINE WBC NEGATIVE /hpf (0-6)
--- NOTE | 2018-03-28 17:58 | CP.PCM.HP ---
<Sameer Armas - Last Filed: 03/28/18 17:58> History of Present Illness - History of Present Illness History of Present Illness: Sameer Armas D.O. PGY1 -- Family Medicine Residency -- History and Physical Report: 77 year old male with past medical history of lower extremity cellulitis, hypertension, osteoarthritis, prostate cancer with thoracolumbar mets, bilateral knee prosthesis in 2005 presents to the [facility] for fever and chills for 2 days. Patient reports that he first started feeling cold and chills around bedtime last night. When he woke up this morning at 4:30AM, patient says he was having chills, fever and bodyaches. Patient notified his daughter, and she gave him tylenol 650mg at that time and again throughout the morning for the fever and body aches. Patient 's daughter visited him later this morning and noticed his left leg was swollen and edematous, which prompted her to bring the patient to the ED. About 3-4 weeks ago, patient admits to feeling sick and having a "bad cough." Patient otherwise denies shortness of breath, nausea, vomiting, chest pain, dysuria, abdominal pain, diarrhea, bilateral leg pain, and/or headache. Patient also denies sick contacts, recent travel, trauma and/or injury to the lower extremities. Of note, patient admits to a similar episode of lower extremity redness and swelling, and said he was treated with antibiotics. He reports that upon completion of his antibiotics he felt better and was able to resume his daily activities, and has not noticed any redness to the area until this morning. PMH: HTN, prostate cancer with osseos metastasis to the spine and ribs, bilateral knee prosthesis PSH: bilateral knee replacement Allergies: NKDA Social: Patient lives at home, uses walker, was in the army, drinks occasionally (he drinks 3-4 beers per day), 70 pack year smoking history Home medications: Amlodipine 5mg Primary care physician: Dr. Ball INS: Medicare Part A (I/P) [place] PPO / INDEMNITY Pharm: [facility] pharmacy Present on Admission - Present on Admission Any Indicators Present on Admission: No History of DVT/PE: No History of Uncontrolled Diabetes: No Urinary Catheter: No Decubitus Ulcer Present: No History Surgical Site Infection Following: None Review of Systems - Review of Systems All systems: reviewed and no additional remarkable complaints except - Constitutional Constitutional: As Per HPI - EENT Eyes: As Per HPI Nose/Mouth/Throat: As Per HPI - Cardiovascular Cardiovascular: As Per HPI - Respiratory Respiratory: As Per HPI. absent: Cough - Gastrointestinal Gastrointestinal: As Per HPI - Genitourinary Genitourinary: As Per HPI - Reproductive: Male Reproductive:Male: As Per HPI - Musculoskeletal Musculoskeletal: As Per HPI - Integumentary Integumentary: As Per HPI - Neurological Neurological: As Per HPI - Psychiatric Psychiatric: As Per HPI - Endocrine Endocrine: As Per HPI - Hematologic/Lymphatic Hematologic: As Per HPI Past Patient History - Infectious Disease Hx of Infectious Diseases: None - Past Medical History & Family History Past Medical History?: Yes - Past Social History Smoking Status: Former Smoker Chewing Tobacco Use: No Cigar Use: No Alcohol: > 2 Drinks/Day Drugs: Denies Home Situation {Lives}: Alone - CARDIAC Hx Hypertension: Yes - PULMONARY Other/Comment: ex smoker - NEUROLOGICAL Hx Neurological Disorder: No Hx Paralysis: No - HEENT Hx HEENT Problems: No - RENAL Hx Chronic Kidney Disease: No - ENDOCRINE/METABOLIC Hx Endocrine Disorders: No - HEMATOLOGICAL/ONCOLOGICAL Hx Blood Transfusions: No - INTEGUMENTARY Hx Dermatological Problems: No - MUSCULOSKELETAL/RHEUMATOLOGICAL Hx Arthritis: Yes - GASTROINTESTINAL Hx Gastrointestinal Disorders: No - GENITOURINARY/GYNECOLOGICAL Hx Prostate Problems: Yes (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) - PSYCHIATRIC Hx Emotional Abuse: No Hx Physical Abuse: No Hx Substance Use: No - SURGICAL HISTORY Other/Comment: bilateral knee replacement with L knee prosthesis - ANESTHESIA Hx Anesthesia Reactions: No Hx Malignant Hyperthermia: No Meds Allergies/Adverse Reactions: Allergies Allergy/AdvReac Type Severity Reaction Status Date / Time No Known Allergies Allergy Verified 05/31/12 11:57 Physical Exam - Constitutional Appears: Well, Non-toxic, No Acute Distress - Head Exam Head Exam: ATRAUMATIC, NORMAL INSPECTION, NORMOCEPHALIC - Eye Exam Eye Exam: Normal appearance, PERRL Pupil Exam: NORMAL ACCOMODATION, PERRL - ENT Exam ENT Exam: Mucous Membranes Moist, Normal Exam - Neck Exam Neck exam: Positive for: Normal Inspection - Respiratory Exam Respiratory Exam: Clear to Auscultation Bilateral, NORMAL BREATHING PATTERN. absent: Decreased Breath Sounds, Prolonged Expiratory Phase, Rales, Respiratory Distress, Stridor - Cardiovascular Exam Cardiovascular Exam: Tachycardia (92 beats per minute ), REGULAR RHYTHM. absent : Diastolic murmur, Gallop, Rubs, Systolic Murmur - GI/Abdominal Exam GI & Abdominal Exam: Normal Bowel Sounds, Soft. absent: Tenderness - Extremities Exam Extremities exam: Positive for: full ROM, normal capillary refill, pedal edema ( left lower extremity is erythematous from knee down to ankle with +2 pitting edema ), pedal pulses present. Negative for: calf tenderness, tenderness - Back Exam Back exam: FULL ROM, NORMAL INSPECTION. absent: muscle spasm, paraspinal tenderness - Neurological Exam Neurological exam: Alert, CN II-XII Intact, Normal Gait, Oriented x3, Reflexes Normal - Psychiatric Exam Psychiatric exam: Normal Affect, Normal Mood - Skin Skin Exam: Dry, Intact, Normal Color, Warm Results - Vital Signs Recent Vital Signs: Last Vital Signs Temp 99.2 F 03/28/18 15:04 Pulse 75 03/28/18 17:36 Resp 17 03/28/18 17:36 BP 120/76 03/28/18 17:36 Pulse Ox 99 03/28/18 17:52 - Labs Result Diagrams: 03/28/18 15:40 03/28/18 15:40 Labs: Laboratory Results - last 24 hr 03/28/18 17:10 Urine Color Dark yellow Urine Appearance Clear Urine pH 5.5 Ur Specific [place] 1.020 Urine Protein Trace H Urine Glucose (UA) Negative Urine Ketones Trace H Urine Blood Negative Urine Nitrate Negative Urine Bilirubin Negative Urine Urobilinogen 0.2 Ur Leukocyte Esterase Negative Urine RBC 0 - 2 Urine WBC Negative Ur Epithelial Cells 0 - 2 Urine Bacteria Neg - EKG Data EKG Interpreted by: Myself EKG shows normal: Sinus rhythm Rate: Normal (87 beats per minute. No ST elevations. No T wave inversion. ) - EKG Data When Compared to Previous EKG: No Significant Change Assessment & Plan - Assessment and Plan (Free Text) Assessment: 77 year old male with past medical history of lower extremity cellulitis, hypertension, osteoarthritis, prostate cancer with thoracolumbar mets, bilateral knee prosthesis in 2005 presents to the [facility] for fever and chills for 2 days. Patient was subsequently admitted for treatment of left lower extremity cellulitis. Left lower extremity cellulitis - SIRS criteria/ Rule out Sepsis: WBC: 17.2, HR: 92bpm, Lactic acid: 1.6 - Likely secondary to right lower extremity cellulitis - Duplex lower extremity, prelim read: negative for DVT bilaterally - Empiric vancomycin 1g IVPB Q12H, Unasyn 3g IVPB Q6 - Procalcitonin pending - Blood cultures pending - CBC with diff series ordered - CMP series ordered - Patient was encouraged to drink fluids, no IVF at this time due to elevated BNP Elevated BNP, unknown cardiac history - BNP 749 - EKG: Tachycardic 92 bpm, normal sinus - Monitor History HTN, chronic - BP: 116/74 - started on home med, amlodipine 5mg - monitor Prophylaxis - Lovenox 40mg SC daily Patient was seen and case reviewed with Attending Physician MD Sameer Ko D.O. PGY1 <Shelly Traylor - Last Filed: 03/29/18 10:46> Results - Vital Signs Recent Vital Signs: Last Vital Signs Temp 99.3 F 03/29/18 07:59 Pulse 80 03/29/18 09:39 Resp 18 03/29/18 07:59 BP 132/70 03/29/18 09:39 Pulse Ox 95 03/29/18 07:59 - Labs Result Diagrams: 03/29/18 06:00 03/29/18 06:00 Labs: Laboratory Results - last 24 hr 03/28/18 03/28/18 03/28/18 17:10 18:04 18:04 WBC RBC Hgb Hct MCV MCH MCHC RDW Plt Count MPV Gran % Lymph % (Auto) [place] % (Auto) Eos % (Auto) Baso % (Auto) Gran # Lymph # (Auto) [place] # (Auto) Eos # (Auto) Baso # (Auto) Sodium Potassium Chloride Carbon Dioxide Anion Gap BUN Creatinine Est GFR ( Amer) Est GFR (Non-Af Amer) Random Glucose Hemoglobin A1c 5.4 Calcium Total Bilirubin AST ALT Alkaline Phosphatase Total Protein Albumin Globulin Albumin/Globulin Ratio Procalcitonin 0.25 Urine Color Dark yellow Urine Appearance Clear Urine pH 5.5 Ur Specific [place] 1.020 Urine Protein Trace H Urine Glucose (UA) Negative Urine Ketones Trace H Urine Blood Negative Urine Nitrate Negative Urine Bilirubin Negative Urine Urobilinogen 0.2 Ur Leukocyte Esterase Negative Urine RBC 0 - 2 Urine WBC Negative Ur Epithelial Cells 0 - 2 Urine Bacteria Neg 03/29/18 03/29/18 06:00 06:00 WBC 14.1 H RBC 3.55 Hgb 11.0 L Hct 33.1 L MCV 93.2 MCH 31.0 MCHC 33.2 RDW 14.9 H Plt Count 242 MPV 10.0 Gran % 92.7 H Lymph % (Auto) 4.5 L [place] % (Auto) 2.8 Eos % (Auto) 0.0 L Baso % (Auto) 0.0 Gran # 13.04 H Lymph # (Auto) 0.6 L [place] # (Auto) 0.4 Eos # (Auto) 0.0 Baso # (Auto) 0.00 Sodium 136 Potassium 3.9 Chloride 102 Carbon Dioxide 27 Anion Gap 11 BUN 24 H Creatinine 0.8 Est GFR ( Amer) > 60 Est GFR (Non-Af Amer) > 60 Random Glucose 108 Hemoglobin A1c Calcium 8.7 Total Bilirubin 0.4 AST 41 ALT 30 Alkaline Phosphatase 65 Total Protein 6.6 Albumin 3.6 Globulin 3.0 Albumin/Globulin Ratio 1.2 Procalcitonin Urine Color Urine Appearance Urine pH Ur Specific [place] Urine Protein Urine Glucose (UA) Urine Ketones Urine Blood Urine Nitrate Urine Bilirubin Urine Urobilinogen Ur Leukocyte Esterase Urine RBC Urine WBC Ur Epithelial Cells Urine Bacteria Attending/Attestation - Attestation I have personally seen and examined this patient.: Yes I have fully participated in the care of the patient.: Yes I have reviewed all pertinent clinical information: Yes Notes (Text): 03/29/18 10:43 Medical record note made by the resident after discussion with my direction and input after the patient was personally seen and examined by me. I have reviewed the chart and agree that the record accurately reflects by personal performance of the history, physical exam, data review, and medical decision-making, in the course for the patient. I have also personally directed the plan of care. 77 year old male with past medical history of lower extremity cellulitis, hypertension,chronic venous stasis, osteoarthritis, prostate cancer with thoracolumbar mets, SP radiation therapy curentky treated with hormonal therapy every 3 month , bilateral knee prosthesis in 2005 is admitted with leg leg cullutis, we will start patient on IV vancomycin and unasyn.We will follow up cultures. Management plan was discussed in detail with patient. Education was provided
[2018-03-28] MEDS: Vancomycin 1gm in NS 250ml 1 GM/250 ML BAG IVPB SCH (18:13)
[2018-03-28] MEDS: Enoxaparin 40 mg Syringe SC SCH (18:53)
--- NOTE | 2018-03-28 19:15 | US ---
PROCEDURE: Left lower extremity venous US HISTORY: Leg pain and swelling. Evaluate for DVT. PHYSICIAN(S): Saeid Kong MD. TECHNIQUE: Duplex sonography and color-flow Doppler with graded compression were used to evaluate the deep venous system of the left lower extremity. The exam is limited by body habitus and edema. The tibial veins are not well seen FINDINGS: The visualized deep venous system of the left lower extremity is sonographically normal and compressible. Normal wave forms and augmentation are seen. There is no sonographic evidence for deep venous thrombosis in the visualized segments of the left lower extremity. IMPRESSION: 1. No sonographic evidence for deep venous thrombosis in the visualized segments of the left lower extremity.
[2018-03-28] MEDS ORDERED: Pneumococcal 23-Valent Vaccine IM ONE (22:59)
[2018-03-29] MEDS: Vancomycin 1gm in NS 250ml 1 GM/250 ML BAG IVPB SCH ×2 (05:20→17:35)
[2018-03-29 06:32] LABS: ALB/GLOB RATIO 1.2 (1.1-1.8); ALBUMIN 3.6 g/dL (3.0-4.8); ALT/SGPT 30 U/L (7-56); AST/SGOT 41 U/L (17-59); BLOOD UREA NITROGEN 24 mg/dL (7-21); CALCIUM 8.7 mg/dL (8.4-10.5); GFR AFRICAN-AMERICAN > 60; GFR NON-AFRICAN AMERICAN > 60
[2018-03-29 06:33] LABS: GRAN # 13.04 (1.4-6.5); GRAN % 92.7 % (50.0-68.0); LYMPH # 0.6 (1.2-3.4); LYMPH % 4.5 % (22.0-35.0); MEAN CELL VOLUME 93.2 fl (80.0-105.0); MEAN CORPUSCULAR HGB CONC 33.2 g/dl (31.0-37.0); MONO # 0.4 (0.1-0.6); MONO % 2.8 % (1.0-6.0); RBC 3.55 10^6/uL (3.5-6.1); RED CELL DISTRIBUTION WIDTH 14.9 % (11.5-14.5); WHITE BLOOD COUNT 14.1 10^3/ul (4.5-11.0)
[2018-03-29] MEDS: Enoxaparin 40 mg Syringe SC SCH (09:39)
--- NOTE | 2018-03-29 13:11 | CP.PCM.PN ---
<Edgard Sen - Last Filed: 03/30/18 06:26> Subjective - Date & Time of Evaluation Date of Evaluation: 03/29/18 Time of Evaluation: 13:05 - Subjective Subjective: Edgard Sen DO - PGY1 Internal medicine Hand Laminator - Progress note Pt. was seen this AM at bedside; no events overnight. Pt. appeared to be stable at baseline. No complaints voiced by nursing overnight. Pt. denies any L Foot pain; however still w/ complaints of tenderness of LLE 12 point ROS negative. Objective - Vital Signs/Intake and Output Vital Signs (last 24 hours): Temp Pulse Resp BP Pulse Ox 99.3 F 80 18 132/70 95 03/29/18 07:59 03/29/18 09:39 03/29/18 07:59 03/29/18 09:39 03/29/18 07:59 Intake and Output: 03/29/18 03/29/18 06:59 18:59 Intake Total 870 Output Total 500 Balance 370 - Medications Medications: Current Medications Acetaminophen (Tylenol 325mg Tab) 650 mg PO Q6H PRN PRN Reason: Fever >100.4 F Last Admin: 03/28/18 21:36 Dose: 650 mg Amlodipine Besylate (Norvasc) 5 mg PO DAILY FITZ Last Admin: 03/29/18 09:39 Dose: 5 mg Enoxaparin Sodium (Lovenox) 40 mg SC DAILY FITZ PRN Reason: Protocol Last Admin: 03/29/18 09:39 Dose: 40 mg Ampicillin Sodium/Sulbactam (Sodium 3 gm/ Sodium Chloride) 100 mls @ 200 mls/ hr IVPB Q6 FITZ PRN Reason: Protocol Last Admin: 03/29/18 11:07 Dose: 200 mls/hr Vancomycin HCl (Vancomycin 1gm) 1 gm in 250 mls @ 167 mls/hr IVPB Q12H FITZ PRN Reason: Protocol Last Admin: 03/29/18 05:20 Dose: 167 mls/hr - Labs Labs: 03/29/18 06:00 03/29/18 06:00 Physical Exam - Constitutional Appears: Well, Non-toxic, No Acute Distress - Head Exam Head Exam: ATRAUMATIC, NORMAL INSPECTION, NORMOCEPHALIC - Eye Exam Eye Exam: Normal appearance, PERRL Pupil Exam: NORMAL ACCOMODATION, PERRL - ENT Exam ENT Exam: Mucous Membranes Moist, Normal Exam - Neck Exam Neck exam: Positive for: Normal Inspection - Respiratory Exam Respiratory Exam: Clear to Auscultation Bilateral, NORMAL BREATHING PATTERN. absent: Decreased Breath Sounds, Prolonged Expiratory Phase, Rales, Respiratory Distress, Stridor - Cardiovascular Exam Cardiovascular Exam: RRR no murmur - GI/Abdominal Exam GI & Abdominal Exam: Normal Bowel Sounds, Soft. absent: Tenderness - Extremities Exam Extremities exam: Positive for: full ROM, normal capillary refill, pedal edema ( left lower extremity is erythematous from knee down to ankle with +2 pitting edema ), pedal pulses present. Negative for: calf tenderness, tenderness; L foot with some deformity extending from 1st digit into the medial aspect of the foot. - Back Exam Back exam: FULL ROM, NORMAL INSPECTION. absent: muscle spasm, paraspinal tenderness - Neurological Exam Neurological exam: Alert, CN II-XII Intact, Normal Gait, Oriented x3, Reflexes Normal - Psychiatric Exam Psychiatric exam: Normal Affect, Normal Mood - Skin Skin Exam: Dry, Intact, Normal Color, Warm Assessment and Plan - Assessment and Plan (Free Text) Assessment: 77 year old male with past medical history of lower extremity cellulitis, hypertension, osteoarthritis, prostate cancer with thoracolumbar mets, bilateral knee prosthesis in 2005 presents to the [facility] Emergency Department for fever and chills for 2 days. Patient was subsequently admitted for treatment of left lower extremity cellulitis. Plan: Left lower extremity cellulitis Prior c/o subjective fevers, cough, and leg pain w/ erythema/ swelling/ tenderness CXR negative Duplex lower extremity - negative for DVT Cont empiric vanc/ unsasyn - day 1 L Ankle XRay - subtalar dislocation; L Tib/Fib Xray - TKA; partially imaged lateral subtalar dislocation Pro alisha wnl Blood cultures pending WBC down trending ID following, appreciate reccs Subtalar Dislocation Patient ambulating well w/o any complaints of foot pain; no pain elicited on examination; Xray findings as above CT LLE ordered Elevated BNP, unknown cardiac history Pt. denies any cardiac/ pulm symptoms at this time; only w/ c/o of LE edema. Hold IVF BNP 749 EKG - NSR History HTN, chronic BP stable Cont home amlodipine 5mg QD DVT PPx - Lovenox Patient seen, examined, and discussed at length w/ attending physician Dr. Layton Sen DO - PGY1 Internal Medicine Hand Laminator - Pager [phone] <Shelly Traylor - Last Filed: 03/30/18 12:11> Objective - Vital Signs/Intake and Output Vital Signs (last 24 hours): Temp Pulse Resp BP Pulse Ox 99.4 F 92 H 20 138/80 93 L 03/30/18 07:50 03/30/18 10:33 03/30/18 07:50 03/30/18 10:33 03/30/18 07:50 Intake and Output: 03/30/18 03/30/18 06:59 18:59 Intake Total 420 Output Total 1850 Balance -1430 - Medications Medications: Current Medications Acetaminophen (Tylenol 325mg Tab) 650 mg PO Q4 PRN PRN Reason: Fever >100.4 F Amlodipine Besylate (Norvasc) 5 mg PO DAILY FITZ Last Admin: 03/30/18 10:33 Dose: 5 mg Enoxaparin Sodium (Lovenox) 40 mg SC DAILY FITZ PRN Reason: Protocol Last Admin: 03/30/18 10:33 Dose: Not Given Ampicillin Sodium/Sulbactam (Sodium 3 gm/ Sodium Chloride) 100 mls @ 200 mls/ hr IVPB Q6 FITZ PRN Reason: Protocol Last Admin: 03/30/18 11:36 Dose: 200 mls/hr Vancomycin HCl (Vancomycin 1gm) 1 gm in 250 mls @ 167 mls/hr IVPB Q12H IFTZ PRN Reason: Protocol Last Admin: 03/30/18 05:00 Dose: 167 mls/hr - Labs Labs: 03/30/18 06:30 03/30/18 06:30 Attending/Attestation - Attestation I have personally seen and examined this patient.: Yes I have fully participated in the care of the patient.: Yes I have reviewed all pertinent clinical information, including history, physical exam and plan: Yes Notes (Text): 03/30/18 12:07 Medical record note made by the resident after discussion with my direction and input after the patient was personally seen and examined by me. I have reviewed the chart and agree that the record accurately reflects by personal performance of the history, physical exam, data review, and medical decision-making, in the course for the patient. I have also personally directed the plan of care. 77 year old male with past medical history of lower extremity cellulitis, hypertension,chronic venous stasis, osteoarthritis, prostate cancer with thoracolumbar mets, SP radiation therapy currently treated with hormonal therapy every 3 month , bilateral knee prosthesis in 2005 was admitted with leg leg cellulitis, on IV vancomycin and unasyn.Redness and swelling is improving.Blood cultures are negative for any growth,We will continue IV antibiotics. X ray of left ankle and CT scan was reviewed.Patient is aware of those finding.As per patient he is not having any pain and difficulty in walking.He has been evaluated by orthopedic in the past , and there is no plan for any intervention. Management plan was discussed in detail with patient. Education was provided
--- NOTE | 2018-03-29 15:50 | CT ---
Date of service: 03/29/2018 PROCEDURE: CT of the left lower extremity without contrast HISTORY: questionable findings onx-ray COMPARISON: Plain films dated 03/28/2018 TECHNIQUE: Radiation dose: Total exam DLP = 727 mGy-cm. This CT exam was performed using one or more of the following dose reduction techniques: Automated exposure control, adjustment of the mA and/or kV according to patient size, and/or use of iterative reconstruction technique. FINDINGS: There is a left knee prosthesis with no evidence of fracture or loosening. The tibia and fibula are unremarkable. As noted on the plain films severe degenerative changes are seen in the subtalar joints with lateral displacement of the calcaneus relative to the talus. 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
[2018-03-30] MEDS: Vancomycin 1gm in NS 250ml 1 GM/250 ML BAG IVPB SCH ×2 (05:00→17:38)
[2018-03-30 07:33] LABS: BASO # 0.01 K/mm3 (0.0-2.0); BASO % 0.1 % (0.0-3.0); EOS % 0.2 % (1.5-5.0); GRAN # 7.51 (1.4-6.5); HEMOGLOBIN 11.5 g/dL (14.0-18.0); LYMPH % 10.9 % (22.0-35.0); MEAN CELL VOLUME 93.8 fl (80.0-105.0); MEAN PLATELET VOLUME 10.2 fl (7.0-11.0); MONO # 0.5 (0.1-0.6); MONO % 5.8 % (1.0-6.0); RBC 3.71 10^6/uL (3.5-6.1); RED CELL DISTRIBUTION WIDTH 14.9 % (11.5-14.5); WHITE BLOOD COUNT 9.1 10^3/ul (4.5-11.0)
[2018-03-30 07:51] VITALS: RESP 20
[2018-03-30 08:21] LABS: ALB/GLOB RATIO 1.1 (1.1-1.8); ALBUMIN 3.5 g/dL (3.0-4.8); ALT/SGPT 31 U/L (7-56); AST/SGOT 41 U/L (17-59); BLOOD UREA NITROGEN 16 mg/dL (7-21); CALCIUM 8.7 mg/dL (8.4-10.5); GFR AFRICAN-AMERICAN > 60; GFR NON-AFRICAN AMERICAN > 60
[2018-03-30] MEDS: Enoxaparin 40 mg Syringe SC SCH (10:33)
--- NOTE | 2018-03-30 11:35 | CP.PCM.DIS ---
<Yoan Gomez - Last Filed: 03/30/18 11:26> Provider - Provider Date of Admission: 03/28/18 16:31 Attending physician: Tomasz Salazar MD Primary care physician: Uri Ball MD Time Spent in preparation of Discharge (in minutes): 38 Diagnosis - Discharge Diagnosis (1) Left leg cellulitis Status: Suspected Priority: High (2) Dehydration Status: Resolved Priority: High (3) Elevated brain natriuretic peptide (BNP) level Status: Suspected Priority: High Hospital Course - Lab Results Lab Results: Most Recent Lab Values WBC 9.1 10^3/ul (4.5-11.0) D 03/30/18 06:30 RBC 3.71 10^6/uL (3.5-6.1) 03/30/18 06:30 Hgb 11.5 g/dL (14.0-18.0) L 03/30/18 06:30 Hct 34.8 % (42.0-52.0) L 03/30/18 06:30 MCV 93.8 fl (80.0-105.0) 03/30/18 06:30 MCH 31.0 pg (25.0-35.0) 03/30/18 06:30 MCHC 33.0 g/dl (31.0-37.0) 03/30/18 06:30 RDW 14.9 % (11.5-14.5) H 03/30/18 06:30 Plt Count 230 10^3/uL (120.0-450.0) 03/30/18 06:30 MPV 10.2 fl (7.0-11.0) 03/30/18 06:30 Gran % 83.0 % (50.0-68.0) H 03/30/18 06:30 Lymph % (Auto) 10.9 % (22.0-35.0) L 03/30/18 06:30 [place] % (Auto) 5.8 % (1.0-6.0) 03/30/18 06:30 Eos % (Auto) 0.2 % (1.5-5.0) L 03/30/18 06:30 Baso % (Auto) 0.1 % (0.0-3.0) 03/30/18 06:30 Gran # 7.51 (1.4-6.5) H 03/30/18 06:30 Lymph # (Auto) 1.0 (1.2-3.4) L 03/30/18 06:30 [place] # (Auto) 0.5 (0.1-0.6) 03/30/18 06:30 Eos # (Auto) 0.0 (0.0-0.7) 03/30/18 06:30 Baso # (Auto) 0.01 K/mm3 (0.0-2.0) 03/30/18 06:30 Neutrophils % (Manual) 86 % (50.0-70.0) H 03/28/18 15:40 Lymphocytes % (Manual) 10 % (22.0-35.0) L 03/28/18 15:40 Monocytes % (Manual) 2 % (1.0-6.0) 03/28/18 15:40 Eosinophils % (Manual) 2 % (0.0-3.0) 03/28/18 15:40 Platelet Evaluation Normal (NORMAL) 03/28/18 15:40 pO2 34 mm/Hg (30-55) 03/28/18 15:40 VBG pH 7.32 (7.32-7.43) 03/28/18 15:40 VBG pCO2 55.0 (40-60) 03/28/18 15:40 VBG HCO3 28.3 mmol/l (21-28) H 03/28/18 15:40 VBG Total CO2 30.0 mmol.L (22-28) H 03/28/18 15:40 VBG O2 Sat (Calc) 67.5 % (40-65) H 03/28/18 15:40 VBG Base Excess 1.1 mmol/L (0.0-2.0) 03/28/18 15:40 VBG Potassium 4.2 mmol/L (3.6-5.2) 03/28/18 15:40 Sodium 138.0 mmol/L (132-148) 03/28/18 15:40 Chloride 105.0 mmol/L (98-107) 03/28/18 15:40 Glucose 121 mg/dl (75-110) H 03/28/18 15:40 Lactate 1.6 mmol/L (0.7-2.1) 03/28/18 15:40 FiO2 21.0 % 03/28/18 15:40 Sodium 137 mmol/L (132-148) 03/30/18 06:30 Potassium 3.7 mmol/L (3.6-5.0) 03/30/18 06:30 Chloride 100 mmol/L (98-107) 03/30/18 06:30 Carbon Dioxide 28 mmol/L (21-33) 03/30/18 06:30 Anion Gap 13 (10-20) 03/30/18 06:30 BUN 16 mg/dL (7-21) 03/30/18 06:30 Creatinine 0.8 mg/dl (0.8-1.5) 03/30/18 06:30 Est GFR ( Amer) > 60 03/30/18 06:30 Est GFR (Non-Af Amer) > 60 03/30/18 06:30 Random Glucose 90 mg/dL (70-110) 03/30/18 06:30 Hemoglobin A1c 5.4 % (4.2-6.5) 03/28/18 18:04 Calcium 8.7 mg/dL (8.4-10.5) 03/30/18 06:30 Magnesium 1.8 mg/dL (1.7-2.2) 03/28/18 15:40 Total Bilirubin 0.6 mg/dL (0.2-1.3) 03/30/18 06:30 AST 41 U/L (17-59) 03/30/18 06:30 ALT 31 U/L (7-56) 03/30/18 06:30 Alkaline Phosphatase 75 U/L (38-126) 03/30/18 06:30 NT-Pro-B Natriuret Pep 749 pg/mL (0-450) H 03/28/18 15:40 Total Protein 6.9 g/dL (5.8-8.3) 03/30/18 06:30 Albumin 3.5 g/dL (3.0-4.8) 03/30/18 06:30 Globulin 3.4 gm/dL 03/30/18 06:30 Albumin/Globulin Ratio 1.1 (1.1-1.8) 03/30/18 06:30 Procalcitonin 0.25 NG/ML (0.19-0.49) 03/28/18 18:04 Venous Blood Potassium 4.2 mmol/L (3.6-5.2) 03/28/18 15:40 Urine Color Dark yellow (YELLOW) 03/28/18 17:10 Urine Appearance Clear (CLEAR) 03/28/18 17:10 Urine pH 5.5 (4.7-8.0) 03/28/18 17:10 Ur Specific [place] 1.020 (1.005-1.035) 03/28/18 17:10 Urine Protein Trace mg/dL (<30 mg/dL) H 03/28/18 17:10 Urine Glucose (UA) Negative mg/dL (NEGATIVE) 03/28/18 17:10 Urine Ketones Trace mg/dL (NEGATIVE) H 03/28/18 17:10 Urine Blood Negative (NEGATIVE) 03/28/18 17:10 Urine Nitrate Negative (NEGATIVE) 03/28/18 17:10 Urine Bilirubin Negative (NEGATIVE) 03/28/18 17:10 Urine Urobilinogen 0.2 E.U./dL (<1 E.U./dL) 03/28/18 17:10 Ur Leukocyte Esterase Negative Dennis/uL (NEGATIVE) 03/28/18 17:10 Urine RBC 0 - 2 /hpf (0-2) 03/28/18 17:10 Urine WBC Negative /hpf (0-6) 03/28/18 17:10 Ur Epithelial Cells 0 - 2 /hpf (0-5) 03/28/18 17:10 Urine Bacteria Neg (NEG) 03/28/18 17:10 - Hospital Course Hospital Course: History of Present Illness: Sameer Armas D.O. PGY1 -- Family Medicine Residency -- History and Physical Report: 77 year old male with past medical history of lower extremity cellulitis, hypertension, osteoarthritis, prostate cancer with thoracolumbar mets, bilateral knee prosthesis in 2005 presents to the [facility] Emergency Department for fever and chills for 2 days. Patient reports that he first started feeling cold and chills around bedtime last night. When he woke up this morning at 4:30AM, patient says he was having chills, fever and bodyaches. Patient notified his daughter, and she gave him tylenol 650mg at that time and again throughout the morning for the fever and body aches. Patient 's daughter visited him later this morning and noticed his left leg was swollen and edematous, which prompted her to bring the patient to the ED. About 3-4 weeks ago, patient admits to feeling sick and having a "bad cough." Patient otherwise denies shortness of breath, nausea, vomiting, chest pain, dysuria, abdominal pain, diarrhea, bilateral leg pain, and/or headache. Patient also denies sick contacts, recent travel, trauma and/or injury to the lower extremities. Of note, patient admits to a similar episode of lower extremity redness and swelling, and said he was treated with antibiotics. He reports that upon completion of his antibiotics he felt better and was able to resume his daily activities, and has not noticed any redness to the area until this morning. PMH: HTN, prostate cancer with osseos metastasis to the spine and ribs, bilateral knee prosthesis PSH: bilateral knee replacement Allergies: NKDA Social: Patient lives at home, uses walker, was in the army, drinks occasionally (he drinks 3-4 beers per day), 70 pack year smoking history Home medications: Amlodipine 5mg Primary care physician: Dr. Ball INS: Medicare Part A (I/P) [facility] PPO / INDEMNITY Pharm: [facility] pharmacy HOSPITAL COURSE: Mr Hernadez was admitted with a diagnosis of left leg cellulitis. He was started vancomcyin and unasyn which was switched to oral augment and doxycycline at discharge. 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 Blood cultures were negative after 24 hours and procalcitonin was normal. He had a low grade fever (Tmax 100.8) which had resolved. A venous duplex scan did not show DVT. By discharge his white count had normalized. Of note, patient had an elevated proBNP - his IVF was held, ekg was done which showed NSR, and cxr was normal - it was endorsed to the patient to attain a referral to herbicide service sales representative from his PMD. Please see the latest progress note below for most up to date assessment and plan: Left lower extremity cellulitis Prior c/o subjective fevers, cough, and leg pain w/ erythema/ swelling/ tenderness CXR negative Duplex lower extremity - negative for DVT Cont empiric vanc/ unsasyn - day 1 L Ankle XRay - subtalar dislocation; L Tib/Fib Xray - TKA; partially imaged lateral subtalar dislocation Pro alisha wnl Blood cultures pending WBC down trending Subtalar Dislocation Patient ambulating well w/o any complaints of foot pain; no pain elicited on examination; Xray findings as above CT LLE ordered Elevated BNP, unknown cardiac history Pt. denies any cardiac/ pulm symptoms at this time; only w/ c/o of LE edema. Hold IVF BNP 749 EKG - NSR History HTN, chronic BP stable Cont home amlodipine 5mg QD DVT PPx - Lovenox Discharge Exam - Head Exam Head Exam: ATRAUMATIC, NORMAL INSPECTION, NORMOCEPHALIC - Additional Findings Additional findings: - Constitutional Appears: Well, Non-toxic, No Acute Distress - Head Exam Head Exam: ATRAUMATIC, NORMAL INSPECTION, NORMOCEPHALIC - Eye Exam Eye Exam: Normal appearance, PERRL Pupil Exam: NORMAL ACCOMODATION, PERRL - ENT Exam ENT Exam: Mucous Membranes Moist, Normal Exam - Neck Exam Neck exam: Positive for: Normal Inspection - Respiratory Exam Respiratory Exam: Clear to Auscultation Bilateral, NORMAL BREATHING PATTERN. absent: Decreased Breath Sounds, Prolonged Expiratory Phase, Rales, Respiratory Distress, Stridor - Cardiovascular Exam Cardiovascular Exam: RRR no murmur - GI/Abdominal Exam GI & Abdominal Exam: Normal Bowel Sounds, Soft. absent: Tenderness - Extremities Exam Extremities exam: Positive for: full ROM, normal capillary refill, pedal edema ( left lower extremity is erythematous (improving from previous day) from knee down to ankle with +2 pitting edema ), pedal pulses present. Negative for: calf tenderness, tenderness; L foot with some deformity extending from 1st digit into the medial aspect of the foot. - Back Exam Back exam: FULL ROM, NORMAL INSPECTION. absent: muscle spasm, paraspinal tenderness - Neurological Exam Neurological exam: Alert, CN II-XII Intact, Normal Gait, Oriented x3, Reflexes Normal - Psychiatric Exam Psychiatric exam: Normal Affect, Normal Mood - Skin Skin Exam: Dry, Intact, Normal Color, Warm Discharge Plan - Discharge Medications Prescriptions: Amoxicillin/Clavulanate [Augmentin 875 MG-125 MG] 1 tab PO Q12H 7 Days #14 tab Doxycycline Monohydrate 100 mg PO Q12H 7 Days #14 capsule Lactobacillus Acidophilus [Bacid Acidophilus] 1 cap PO DAILY 10 Days #10 cap - Follow Up Plan Condition: STABLE Disposition: HOME/ ROUTINE Instructions: Cellulitis (DC) Additional Instructions: You are medically stable for discharge. You will be given scripts for the following medications, please get these filled out at your pharmacy and take the medicines as instructed: 1. Amoxicillin/Clavulanate [Augmentin 875mg-125mg] take 1 tablet with breakfast and 1 tablet with dinner for a total of 7 days 2. Doxycycline 100mg take 1 tablet with breakfast and 1 tablet with dinner for a total of 7 days 3. Lactobacillus Acidophilus [Bacid] take 1 tablet with lunch for a total of 10 days Our records indicate you take Amlodipine [Norvasc] 5mg as a home medication. Please resume this home medication. Please follow-up with your Primary Medical Doctor, Dr. Ball, in 7 days so he may monitor the resolution of your symptoms. If symptoms return, please go to nearest emergency department. Referrals: Uri Ball MD [Primary Care Provider] - <Shelly Traylor - Last Filed: 03/31/18 16:46> Provider - Provider Date of Admission: 03/28/18 16:31 Attending physician: Tomasz Salazar MD Primary care physician: Uri Ball MD Hospital Course - Lab Results Lab Results: Most Recent Lab Values WBC 9.1 10^3/ul (4.5-11.0) D 03/30/18 06:30 RBC 3.71 10^6/uL (3.5-6.1) 03/30/18 06:30 Hgb 11.5 g/dL (14.0-18.0) L 03/30/18 06:30 Hct 34.8 % (42.0-52.0) L 03/30/18 06:30 MCV 93.8 fl (80.0-105.0) 03/30/18 06:30 MCH 31.0 pg (25.0-35.0) 03/30/18 06:30 MCHC 33.0 g/dl (31.0-37.0) 03/30/18 06:30 RDW 14.9 % (11.5-14.5) H 03/30/18 06:30 Plt Count 230 10^3/uL (120.0-450.0) 03/30/18 06:30 MPV 10.2 fl (7.0-11.0) 03/30/18 06:30 Gran % 83.0 % (50.0-68.0) H 03/30/18 06:30 Lymph % (Auto) 10.9 % (22.0-35.0) L 03/30/18 06:30 [place] % (Auto) 5.8 % (1.0-6.0) 03/30/18 06:30 Eos % (Auto) 0.2 % (1.5-5.0) L 03/30/18 06:30 Baso % (Auto) 0.1 % (0.0-3.0) 03/30/18 06:30 Gran # 7.51 (1.4-6.5) H 03/30/18 06:30 Lymph # (Auto) 1.0 (1.2-3.4) L 03/30/18 06:30 [place] # (Auto) 0.5 (0.1-0.6) 03/30/18 06:30 Eos # (Auto) 0.0 (0.0-0.7) 03/30/18 06:30 Baso # (Auto) 0.01 K/mm3 (0.0-2.0) 03/30/18 06:30 Neutrophils % (Manual) 86 % (50.0-70.0) H 03/28/18 15:40 Lymphocytes % (Manual) 10 % (22.0-35.0) L 03/28/18 15:40 Monocytes % (Manual) 2 % (1.0-6.0) 03/28/18 15:40 Eosinophils % (Manual) 2 % (0.0-3.0) 03/28/18 15:40 Platelet Evaluation Normal (NORMAL) 03/28/18 15:40 pO2 34 mm/Hg (30-55) 03/28/18 15:40 VBG pH 7.32 (7.32-7.43) 03/28/18 15:40 VBG pCO2 55.0 (40-60) 03/28/18 15:40 VBG HCO3 28.3 mmol/l (21-28) H 03/28/18 15:40 VBG Total CO2 30.0 mmol.L (22-28) H 03/28/18 15:40 VBG O2 Sat (Calc) 67.5 % (40-65) H 03/28/18 15:40 VBG Base Excess 1.1 mmol/L (0.0-2.0) 03/28/18 15:40 VBG Potassium 4.2 mmol/L (3.6-5.2) 03/28/18 15:40 Sodium 138.0 mmol/L (132-148) 03/28/18 15:40 Chloride 105.0 mmol/L (98-107) 03/28/18 15:40 Glucose 121 mg/dl (75-110) H 03/28/18 15:40 Lactate 1.6 mmol/L (0.7-2.1) 03/28/18 15:40 FiO2 21.0 % 03/28/18 15:40 Sodium 137 mmol/L (132-148) 03/30/18 06:30 Potassium 3.7 mmol/L (3.6-5.0) 03/30/18 06:30 Chloride 100 mmol/L (98-107) 03/30/18 06:30 Carbon Dioxide 28 mmol/L (21-33) 03/30/18 06:30 Anion Gap 13 (10-20) 03/30/18 06:30 BUN 16 mg/dL (7-21) 03/30/18 06:30 Creatinine 0.8 mg/dl (0.8-1.5) 03/30/18 06:30 Est GFR ( Amer) > 60 03/30/18 06:30 Est GFR (Non-Af Amer) > 60 03/30/18 06:30 Random Glucose 90 mg/dL (70-110) 03/30/18 06:30 Hemoglobin A1c 5.4 % (4.2-6.5) 03/28/18 18:04 Calcium 8.7 mg/dL (8.4-10.5) 03/30/18 06:30 Magnesium 1.8 mg/dL (1.7-2.2) 03/28/18 15:40 Total Bilirubin 0.6 mg/dL (0.2-1.3) 03/30/18 06:30 AST 41 U/L (17-59) 03/30/18 06:30 ALT 31 U/L (7-56) 03/30/18 06:30 Alkaline Phosphatase 75 U/L (38-126) 03/30/18 06:30 NT-Pro-B Natriuret Pep 749 pg/mL (0-450) H 03/28/18 15:40 Total Protein 6.9 g/dL (5.8-8.3) 03/30/18 06:30 Albumin 3.5 g/dL (3.0-4.8) 03/30/18 06:30 Globulin 3.4 gm/dL 03/30/18 06:30 Albumin/Globulin Ratio 1.1 (1.1-1.8) 03/30/18 06:30 Procalcitonin 0.25 NG/ML (0.19-0.49) 03/28/18 18:04 Venous Blood Potassium 4.2 mmol/L (3.6-5.2) 03/28/18 15:40 Urine Color Dark yellow (YELLOW) 03/28/18 17:10 Urine Appearance Clear (CLEAR) 03/28/18 17:10 Urine pH 5.5 (4.7-8.0) 03/28/18 17:10 Ur Specific [place] 1.020 (1.005-1.035) 03/28/18 17:10 Urine Protein Trace mg/dL (<30 mg/dL) H 03/28/18 17:10 Urine Glucose (UA) Negative mg/dL (NEGATIVE) 03/28/18 17:10 Urine Ketones Trace mg/dL (NEGATIVE) H 03/28/18 17:10 Urine Blood Negative (NEGATIVE) 03/28/18 17:10 Urine Nitrate Negative (NEGATIVE) 03/28/18 17:10 Urine Bilirubin Negative (NEGATIVE) 03/28/18 17:10 Urine Urobilinogen 0.2 E.U./dL (<1 E.U./dL) 03/28/18 17:10 Ur Leukocyte Esterase Negative Dennis/uL (NEGATIVE) 03/28/18 17:10 Urine RBC 0 - 2 /hpf (0-2) 03/28/18 17:10 Urine WBC Negative /hpf (0-6) 03/28/18 17:10 Ur Epithelial Cells 0 - 2 /hpf (0-5) 03/28/18 17:10 Urine Bacteria Neg (NEG) 03/28/18 17:10 Attending/Attestation - Attestation I have personally seen and examined this patient.: Yes I have fully participated in the care of the patient.: Yes I have reviewed all pertinent clinical information, including history, physical exam and plan: Yes Notes (Text): 03/31/18 16:39 Medical record note made by the resident after discussion with my direction and input after the patient was personally seen and examined by me. I have reviewed the chart and agree that the record accurately reflects by personal performance of the history, physical exam, data review, and medical decision-making, in the course for the patient. I have also personally directed the plan of care. 77 year old male with past medical history of lower extremity cellulitis, hypertension,chronic venous stasis, osteoarthritis, prostate cancer with thoracolumbar mets, SP radiation therapy currently treated with hormonal therapy every 3 month , bilateral knee prosthesis in 2005 was admitted with leg leg cellulitis, on IV vancomycin and unasyn.Redness and swelling has improved.Blood cultures are negative for any growth.Patient is afebrile and is feeling better.He will be discharged home on oral Augmentin and oral doxycycline. X ray of left ankle and CT scan was reviewed.Patient is aware of those finding.As per patient he is not having any pain and difficulty in walking.He has been evaluated by orthopedic in the past , and there is no plan for any intervention. Management plan was discussed in detail with patient. Education was provided
[2018-03-30 16:23] VITALS: BP 127/80; PULSE 93; TEMP 98.7; O2SAT 95
== END 2018-03-30 20:23 | disposition home or self-care (01) | DRG 603 ==
LOC: ED 14:21 → ERH 16:31 → 3RNO 18:10
PROVIDERS: ADMIT Internal Medicine; ATTEND Internal Medicine
DX: L03.116 Cellulitis of left lower limb (principal); C79.51 Secondary malignant neoplasm of bone; E86.0 Dehydration; I10 Essential (primary) hypertension; I87.2 Venous insufficiency (chronic) (peripheral); S93.05XD Dislocation of left ankle joint, subsequent encounter; Z96.653 Presence of artificial knee joint, bilateral; Z85.46 Personal history of malignant neoplasm of prostate; Z87.891 Personal history of nicotine dependence

== ENCOUNTER 2018-08-12 07:23 | Inpatient (IN) | payer MEDICARE, BC ==
[2018-08-12 07:26] VITALS: BMI 34.3
--- NOTE | 2018-08-12 07:52 | ED PDOC ---
Arrival/HPI - General Chief Complaint: Lower Extremity Problem/Injury Time Seen by Provider: 08/12/18 07:30 Historian: Patient, Family (daughter) - History of Present Illness Narrative History of Present Illness (Text): 08/12/18 07:49 77 year old male, whose past medical history includes hypertension, osteoarthritis, prostate cancer, and bilateral knee replacement (2005), presents to the emergency department with daughter, complaining of limited range of motion in the left knee, since last night. Patient states he was walking to his bed when he noticed his knee "gave out" and he had trouble moving it or ambulating on it. He reports that he has never experienced these symptoms before. Daughter states that he has pain whenever he tries to bend or straighten out the knee. Daughter also notes that his left knee is always a bit more swollen than the right knee. Patient denies fevers, chills, headache, dizziness, chest pain, shortness of breath, dyspnea on exertion, cough, abdominal pain, nausea, vomiting, diarrhea, back pain, neck pain, or any other complaint. PMD: Dr. Ball Time/Duration: 24 hours Symptom Onset: Sudden Symptom Course: Unchanged Activities at Onset: Light Context: Home Past Medical History - Provider Review Nursing Documentation Reviewed: Yes - Past History Past History: No Previous - Infectious Disease Hx of Infectious Diseases: None - Reproductive Currently Lactating: No - Cardiac Hx Hypertension: Yes - Pulmonary Other/Comment: ex smoker - Neurological Hx Paralysis: No - HEENT Hx HEENT Disorder: Yes (eyeglasses) - Renal Hx Renal Disorder: No - Endocrine/Metabolic Hx Endocrine Disorders: No - Hematological/Oncological Hx Blood Transfusions: No - Integumentary Hx Dermatological Disorder: Yes Other/Comment: redness and +3 pitting edema lle, healed old surgical scars both knees, swelling of lle chronic redness "comes and goees" - Musculoskeletal/Rheumatological Hx Arthritis: Yes - Gastrointestinal Hx Gastrointestinal Disorders: Yes (rectal bleed) Other/Comment: obese - Genitourinary/Gynecological Hx Prostate Problems: Yes (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) - Psychiatric Hx Emotional Abuse: No Hx Physical Abuse: No Hx Substance Use: No - Surgical History Other/Comment: bilateral knee replacement with L knee prosthesis - Anesthesia Hx Anesthesia Reactions: No Hx Malignant Hyperthermia: No - Suicidal Assessment Feels Threatened In Home Enviroment: No Family/Social History - Physician Review Nursing Documentation Reviewed: Yes Family/Social History: No Known Family HX Smoking Status: Former Smoker Hx Alcohol Use: Yes (6 BEERS NIGHTLY) Hx Substance Use: No Hx Substance Use Treatment: No Allergies/Home Meds Allergies/Adverse Reactions: Allergies No Known Allergies Allergy (Verified 08/12/18 07:26) Home Medications: Home Meds Medication Instructions Recorded Confirmed amLODIPine [Norvasc] 5 mg PO DAILY 03/28/18 08/12/18 Multivit-Mins/Iron/Folic/Lycop 1 each PO DAILY 08/12/18 08/12/18 [Centrum Men's Tablet] Review of Systems - Physician Review All systems were reviewed & negative as marked: Yes - Review of Systems Constitutional: absent: Fevers Eyes: absent: Vision Changes Respiratory: absent: SOB, Cough Cardiovascular: absent: Chest Pain Gastrointestinal: absent: Abdominal Pain, Diarrhea, Nausea, Vomiting Musculoskeletal: Joint Swelling (left knee), Other (limited rom in left knee). absent: Back Pain, Neck Pain Neurological: absent: Headache, Dizziness Physical Exam - Physical Exam Narrative Physical Exam (Text): 08/12/18 07:50 Gen: VS reviewed, alert, well developed, well nourished, nontoxic, mild distress. ENT: normal pharynx. Eye: EOMI, PERRL. Neck: no JVD, supple, no adenopathy. CV: regular rate, regular rhythm, no rubs, no murmur, no gallops, S1, S2, pulses equal and strong. Pulm: no distress, clear to auscultation, no wheeze, no rhonchi, breath sounds equal, no rales. Abd: soft, nontender, no guarding, no rebound, no rigidity, normal bowel sounds. Ext: swelling in the left leg, just above the knee. diffusion above the knee. warmth to the entire area due to swelling, but no cellulitic skin changes. Pt has very limited active and passive ROM of left knee. Skin: good color, no rash, no cyanosis. Psych: responds appropriately to questions, normal affect. Neuro: oriented x 3, CN2-12 intact grossly, motor intact, sensation intact. Vital Signs Reviewed: Yes Vital Signs Temp Pulse Resp BP Pulse Ox 08/12/18 07:34 100.5 F H 101 H 19 123/53 L 91 L Temperature: Afebrile Blood Pressure: Hypotensive Pulse: Tachycardic Respiratory Rate: Normal Appearance: Positive for: Well-Appearing, Non-Toxic, Comfortable Pain Distress: None Mental Status: Positive for: Alert and Oriented X 3 Medical Decision Making ED Course and Treatment: 08/12/18 07:50 Impression: 77 year old male who presents to the emergency department complaining of limited ROM to the left knee. Plan: -- labs -- Motrin -- Left Knee X-ray -- US of left lower extremity -- Reassess and disposition Prior Visits: Notes and results from previous visits were reviewed. Progress Notes: 08/12/18 10:[address] Traylor to the hospitalist service. patient to be admitted for suspected cellulitis vs septic left knee arthritis. called has been placed to ortho for consultation and am awaiting call back from ortho tension machine operator. 08/12/18 11:[address] Flores, ortho, will come to the ED for evaluation - Lab Interpretations I have reviewed the lab results: Yes - RAD Interpretation Narrative RAD Interpretations (Text): 08/12/18 10:47 Chest X-ray reviewed, shows: IMPRESSION: No acute infiltrate, pleural effusion or pneumothorax identified. Limited diaphragm elevation may be present but the patient is rotated toward the left limiting the evaluation somewhat. Left Knee X-ray reviewed, shows: IMPRESSION: Status post left knee arthroplasty without evidence of loosening appreciable. Small suprapatellar bursa effusion evident. No acute fracture, subluxation or dislocation identified. 08/12/18 13:47 CT of lower extremity reviewed, shows: IMPRESSION: No evidence of fracture US of left lower extremity reviewed, shows: IMPRESSION: 1. No sonographic evidence for deep venous thrombosis in the visualized segments of the left lower extremity. Home Service Technician: Radiologist - Scribe Statement The provider has reviewed the documentation as recorded by the Shandaibalexei Aranda Provider Scribe Attestation: All medical record entries made by the Scribe were at my direction and personally dictated by me. I have reviewed the chart and agree that the record accurately reflects my personal performance of the history, physical exam, medical decision making, and the department course for this patient. I have also personally directed, reviewed, and agree with the discharge instructions and disposition. Disposition/Present on Arrival - Present on Arrival Any Indicators Present on Arrival: No History of DVT/PE: No History of Uncontrolled Diabetes: No Urinary Catheter: No History of Decub. Ulcer: No History Surgical Site Infection Following: None - Disposition Have Diagnosis and Disposition been Completed?: Yes Diagnosis: Fever, Leukocytosis Disposition: HOSPITALIZED Disposition Time: 10:34 Patient Plan: Admission Patient Problems: Current Active Problems Problem Status Onset Fever Acute Leukocytosis Acute Condition: STABLE
[2018-08-12 08:12] LABS: BASO # 0.01 K/mm3 (0.0-2.0); BASO % 0.1 % (0.0-3.0); GRAN # 13.11 (1.4-6.5); GRAN % 88.5 % (50.0-68.0); HEMOGLOBIN 12.6 g/dL (14.0-18.0); LYMPH # 0.8 (1.2-3.4); LYMPH % 5.1 % (22.0-35.0); MEAN CELL VOLUME 92.8 fl (80.0-105.0); MEAN CORPUSCULAR HEMOGLOBIN 30.2 pg (25.0-35.0); MEAN CORPUSCULAR HGB CONC 32.6 g/dl (31.0-37.0); MEAN PLATELET VOLUME 9.5 fl (7.0-11.0); MONO # 0.9 (0.1-0.6); MONO % 6.3 % (1.0-6.0); RBC 4.17 10^6/uL (3.5-6.1); RED CELL DISTRIBUTION WIDTH 15.6 % (11.5-14.5); WHITE BLOOD COUNT 14.8 10^3/uL (4.5-11.0)
[2018-08-12 08:19] LABS: ALBUMIN 4.2 g/dL (3.0-4.8); ALT/SGPT 24 U/L (7-56); AST/SGOT 34 U/L (17-59); BLOOD UREA NITROGEN 17 mg/dL (7-21); CALCIUM 9.2 mg/dL (8.4-10.5); GFR NON-AFRICAN AMERICAN > 60; URIC ACID 3.9 mg/dL (3.5-8.5)
[2018-08-12 08:20] LABS: INR 1.22; PARTIAL THROMBOPLASTIN TIME 31.2 Seconds (25.1-36.5); PROTHROMBIN TIME 14.1 SECONDS (9.4-12.5)
--- NOTE | 2018-08-12 10:34 | RAD ---
Date of service: 08/12/2018 PROCEDURE: Left Knee Radiographs. HISTORY: Pain. COMPARISON: None. FINDINGS: BONES: Prior left knee arthroplasty prosthetic devices in situ without evidence of loosening or disruption otherwise. No fracture, subluxation or dislocation identified. Mild suprapatellar bursa effusion identified. JOINTS: As above. JOINT EFFUSION: As above. OTHER FINDINGS: None. IMPRESSION: Status post left knee arthroplasty without evidence of loosening appreciable. Small suprapatellar bursa effusion evident. No acute fracture, subluxation or dislocation identified.
--- NOTE | 2018-08-12 10:41 | RAD ---
Date of service: 08/12/2018 HISTORY: pneumonia COMPARISON: Frontal chest radiograph 03/28/2018. TECHNIQUE: Chest PA and lateral FINDINGS: LUNGS: No active pulmonary disease. PLEURA: No significant pleural effusion identified. No pneumothorax apparent. CARDIOVASCULAR: No aortic atherosclerotic calcification present. Normal cardiac size. No pulmonary vascular congestion. OSSEOUS STRUCTURES: No significant abnormalities. VISUALIZED UPPER ABDOMEN: Left hemidiaphragm appears slightly elevated though this may be positional as the patient rotated toward the left slightly. OTHER FINDINGS: None. IMPRESSION: No acute infiltrate, pleural effusion or pneumothorax identified. Limited diaphragm elevation may be present but the patient is rotated toward the left limiting the evaluation somewhat.
[2018-08-12] MEDS ORDERED: Vancomycin 1gm in NS 250ml 1 GM/250 ML BAG IVPB SCH (12:00)
[2018-08-12 12:46] LABS: VENOUS BLOOD GAS PO2 93 mm/Hg (30-55); VENOUS BLOOD PH 7.38 (7.32-7.43)
--- NOTE | 2018-08-12 12:52 | CP.PCM.HP ---
<Tyra Arzate - Last Filed: 08/12/18 13:41> History of Present Illness - History of Present Illness History of Present Illness: H&P for HospitalistMarjan PGY3 This is a 78yo male with past medical history of HTN, prostate ca (tx w/ radiation and hormone therapy- in remission), bilateral knee replacement, and L leg cellulitis who came to ED for sudden L leg weakness. Patient reports he got up this morning and suddenly his "knee gave out". He did not fall or hit his head. He states that his L leg is more swollen and red than usual. He is unable to bare weight. Patient reports he had recently traveled on a cruise with his son and had no trouble walking at the time. They went to the [facility] for 8 days and only left the boat once for a "couple of hours". He denies fever/chills, chest pain, shortness of breath, nausea/vomiting/diarrhea, numbness/tingling, dysuria or hematuria. Patient denies every having history of gout. Past medical history: HTN, Prostate CA (last check up in March with [facility]), L leg cellulitis Past surgical history: Bilateral knee replacement in 2005 Home meds: Norvasc 5mg qd, Centrum Silver Allergies: NKDA Social: Former smoker 2ppd for 10 years, Social EtOH use, denies drug use, Pt lives alone. He is able to do his ADL and ADLi independently. Uses cane as needed. Family history: Dad- from lung ca, Mom- from colon ca PMD: Dr. Cunha Lock Expert: Dr. Ortega Present on Admission - Present on Admission Any Indicators Present on Admission: No Review of Systems - Review of Systems All systems: reviewed and no additional remarkable complaints except Review of Systems: 12 point ROS reviewed as per HPI and is otherwise negative Past Patient History - Infectious Disease Hx of Infectious Diseases: None - Past Medical History & Family History Past Medical History?: Yes - Past Social History Smoking Status: Former Smoker - CARDIAC Hx Hypertension: Yes - PULMONARY Other/Comment: ex smoker - NEUROLOGICAL Hx Paralysis: No - HEENT Hx HEENT Problems: Yes (eyeglasses) - RENAL Hx Chronic Kidney Disease: No - ENDOCRINE/METABOLIC Hx Endocrine Disorders: No - HEMATOLOGICAL/ONCOLOGICAL Hx Blood Transfusions: No - INTEGUMENTARY Hx Dermatological Problems: Yes Other/Comment: redness and +3 pitting edema lle, healed old surgical scars both knees, swelling of lle chronic redness "comes and goees" - MUSCULOSKELETAL/RHEUMATOLOGICAL Hx Arthritis: Yes - GASTROINTESTINAL Hx Gastrointestinal Disorders: Yes (rectal bleed) Other/Comment: obese - GENITOURINARY/GYNECOLOGICAL Hx Prostate Problems: Yes (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) - PSYCHIATRIC Hx Emotional Abuse: No Hx Physical Abuse: No Hx Substance Use: No - SURGICAL HISTORY Other/Comment: bilateral knee replacement with L knee prosthesis - ANESTHESIA Hx Anesthesia Reactions: No Hx Malignant Hyperthermia: No Meds Allergies/Adverse Reactions: Allergies Allergy/AdvReac Type Severity Reaction Status Date / Time No Known Allergies Allergy Verified 08/12/18 07:26 Physical Exam - Constitutional Appears: No Acute Distress - Head Exam Head Exam: ATRAUMATIC, NORMAL INSPECTION, NORMOCEPHALIC - Eye Exam Eye Exam: Normal appearance, PERRL Pupil Exam: NORMAL ACCOMODATION - ENT Exam ENT Exam: Mucous Membranes Moist - Respiratory Exam Respiratory Exam: Clear to Auscultation Bilateral, NORMAL BREATHING PATTERN. absent: Rales, Rhonchi, Wheezes - Cardiovascular Exam Cardiovascular Exam: Tachycardia, REGULAR RHYTHM, +S1, +S2. absent: Gallop, Rubs, Systolic Murmur - GI/Abdominal Exam GI & Abdominal Exam: Normal Bowel Sounds, Soft. absent: Guarding, Mass, Rebound, Rigid, Tenderness - Extremities Exam Extremities exam: Positive for: normal capillary refill, pedal pulses present. Negative for: full ROM (decreased range of motion of L LE ), joint swelling, normal inspection, pedal edema Additional comments: L LE is erythematous and warm with +1 edema. No drainage noted. Arthritic nodules in ankle and feet (bilaterally). No effusion noted in the knee R LE arthritic nodules on feet - Neurological Exam Neurological exam: Alert, CN II-XII Intact, Oriented x3 - Psychiatric Exam Psychiatric exam: Normal Affect, Normal Mood - Skin Skin Exam: Dry, Intact, Warm Results - Vital Signs Recent Vital Signs: Last Vital Signs Temp 98.1 F 08/12/18 12:12 Pulse 101 H 08/12/18 07:34 Resp 20 08/12/18 12:12 BP 110/62 08/12/18 12:12 Pulse Ox 97 08/12/18 12:12 - Labs Result Diagrams: 08/12/18 08:02 08/12/18 08:02 Labs: Laboratory Results - last 24 hr 08/12/18 08/12/18 08/12/18 08:02 08:02 08:02 WBC 14.8 H RBC 4.17 Hgb 12.6 L Hct 38.7 L MCV 92.8 MCH 30.2 MCHC 32.6 RDW 15.6 H Plt Count 247 MPV 9.5 Gran % 88.5 H Lymph % (Auto) 5.1 L [place] % (Auto) 6.3 H Eos % (Auto) 0.0 L Baso % (Auto) 0.1 Gran # 13.11 H Lymph # (Auto) 0.8 L [place] # (Auto) 0.9 H Eos # (Auto) 0.0 Baso # (Auto) 0.01 ESR 82 H PT 14.1 H INR 1.22 APTT 31.2 pO2 VBG pH VBG pCO2 VBG HCO3 VBG Total CO2 VBG O2 Sat (Calc) VBG Base Excess VBG Potassium Glucose Lactate FiO2 Sodium 136 Potassium 4.3 Chloride 98 Carbon Dioxide 29 Anion Gap 13 BUN 17 Creatinine 1.0 Est GFR ( Amer) > 60 Est GFR (Non-Af Amer) > 60 Random Glucose 143 H Uric Acid 3.9 Calcium 9.2 Total Bilirubin 0.9 AST 34 ALT 24 Alkaline Phosphatase 67 Total Protein 8.3 Albumin 4.2 Globulin 4.2 Albumin/Globulin Ratio 1.0 L Venous Blood Potassium 08/12/18 12:24 WBC RBC Hgb Hct MCV MCH MCHC RDW Plt Count MPV Gran % Lymph % (Auto) [place] % (Auto) Eos % (Auto) Baso % (Auto) Gran # Lymph # (Auto) [place] # (Auto) Eos # (Auto) Baso # (Auto) ESR PT INR APTT pO2 93 H VBG pH 7.38 VBG pCO2 45.0 VBG HCO3 26.6 VBG Total CO2 28.0 VBG O2 Sat (Calc) 98.4 H VBG Base Excess 1.0 VBG Potassium 3.4 L Glucose 120 H Lactate 1.2 FiO2 21.0 Sodium 134.0 Potassium Chloride 100.0 Carbon Dioxide Anion Gap BUN Creatinine Est GFR ( Amer) Est GFR (Non-Af Amer) Random Glucose Uric Acid Calcium Total Bilirubin AST ALT Alkaline Phosphatase Total Protein Albumin Globulin Albumin/Globulin Ratio Venous Blood Potassium 3.4 L Assessment & Plan - Assessment and Plan (Free Text) Assessment: This is a 78yo male with past medical history of HTN, prostate ca (tx w/ radi ation and hormone therapy- in remission), bilateral knee replacement, and L leg cellulitis who was admitted for sudden L leg swelling. Plan: 1. Sepsis - SIRS (tachycardic, leukocytosis, temp 100.5) - most likely secondary to L LE cellulitis - will rule out gout and septic L knee - Septic work up pending (blood culture, urine culture, procal) - L LE CT pending, L knee Xray within normal limits - L LE duplex US prelim negative- final read pending - CXR - no evidence of pneumonia - Tylenol prn fever, motrin prn pain - Will start Cefepime and Vancomycin - NS@75 - Ortho consulted- discussed case with Dr. Flores at length 2. HTN - Continue Norvasc 5mg daily DVT ppx: Hep SC Dispo: Will get PT eval for weight baring status Case seen, discussed and reviewed with Dr. Marie Arzate PGY3 <Tomasz Salazar - Last Filed: 08/13/18 15:10> Results - Vital Signs Recent Vital Signs: Last Vital Signs Temp 97.8 F 08/13/18 06:00 Pulse 86 08/13/18 09:24 Resp 20 08/13/18 06:00 BP 131/80 08/13/18 09:24 Pulse Ox 95 08/13/18 06:00 - Labs Result Diagrams: 08/13/18 06:35 08/13/18 06:35 Labs: Laboratory Results - last 24 hr 08/12/18 08/13/18 08/13/18 12:24 06:35 06:35 WBC 10.1 D RBC 3.89 Hgb 11.6 L Hct 36.0 L MCV 92.5 MCH 29.8 MCHC 32.2 RDW 15.7 H Plt Count 205 MPV 10.1 Gran % 84.2 H Lymph % (Auto) 8.6 L [place] % (Auto) 7.2 H Eos % (Auto) 0.0 L Baso % (Auto) 0.0 Gran # 8.50 H Lymph # (Auto) 0.9 L [place] # (Auto) 0.7 H Eos # (Auto) 0.0 Baso # (Auto) 0.00 Sodium 138 Potassium 4.1 Chloride 103 Carbon Dioxide 29 Anion Gap 9 L BUN 18 Creatinine 0.8 Est GFR ( Amer) > 60 Est GFR (Non-Af Amer) > 60 Random Glucose 117 H Calcium 9.0 Total Bilirubin 0.7 AST 26 ALT 21 Alkaline Phosphatase 64 Total Protein 7.4 Albumin 3.5 Globulin 3.8 Albumin/Globulin Ratio 0.9 L Procalcitonin 0.84 H Fluid Type Synovial WBC Synovial RBC Synovial Mononuclear Synov Polymorphonuclear Synovial Specific Grav Synovial Fluid Comment 08/13/18 08/13/18 12:00 12:00 WBC RBC Hgb Hct MCV MCH MCHC RDW Plt Count MPV Gran % Lymph % (Auto) [place] % (Auto) Eos % (Auto) Baso % (Auto) Gran # Lymph # (Auto) [place] # (Auto) Eos # (Auto) Baso # (Auto) Sodium Potassium Chloride Carbon Dioxide Anion Gap BUN Creatinine Est GFR ( Amer) Est GFR (Non-Af Amer) Random Glucose Calcium Total Bilirubin AST ALT Alkaline Phosphatase Total Protein Albumin Globulin Albumin/Globulin Ratio Procalcitonin Fluid Type Synovial fluid Synovial WBC 54945.0 H Synovial RBC 65515.0 H Synovial Mononuclear 22.9 H Synov Polymorphonuclear 77.1 H Synovial Specific Grav 1.020 Synovial Fluid Comment TEST NOT PERFORMED Attending/Attestation - Attestation I have personally seen and examined this patient.: Yes I have fully participated in the care of the patient.: Yes I have reviewed all pertinent clinical information: Yes Notes (Text): 08/13/18 15:05 attending note; Patient seen and examined with resident in ER. Patient's daughter by the bedside. Patient is a 78 year old male with past medical history of HTN, prostate ca (tx w/ radiation and hormone therapy- in remission), bilateral knee replacement, and Left leg cellulitis is admitted for left leg pain and knee pain. Patient was not able to stand because of the pain. left leg cellulitis; started on vancomycin and cefepime. Left knee swelling; orthopedic evaluation appreciated. CT of the left knee ordered. Monitor closely. lower extremity Doppler is negative for DVT. Pain management with Motrin prn. the diagnosis and treatment plan discussed with patient and patient's daughter in detail. Upon discharge the patient will follow up with PMD Dr. Ball. 08/13/18 15:09 08/13/18 15:09
--- NOTE | 2018-08-12 13:00 | CP.PCM.CON ---
History of Present Illness - History of Present Illness History of Present Illness: Orthopedic consult: Dr. Flores Patient is a 77 y/o male c/o of severe left knee pain which began last night. He notes that he has also been experiencing left calf pain which has been persistent for the past 8 months. He has been seen and treated by his vascular surgeon but does not recall the treatment he has received this far. He denies any recent history of injury to the left knee. He has history of bilateral knee replacement in 2005 by a surgeon in [facility]. Currently his pain is severe, dull and located diffuse about the knee. There is associated swelling and warmth. There is also pain, warmth and redness to his left calf. He normally ambulates with the use of a cane however, he is currently unable to bear any weight to the LLE. He denies CP/SOB/N/V/D/fever/melena/dysuria. Review of Systems - Review of Systems All systems: reviewed and no additional remarkable complaints except Review of Systems: as per HPI Past Patient History - Infectious Disease Hx of Infectious Diseases: None - Past Medical History & Family History Past Medical History?: Yes Past Family History: Reviewed and not pertinent - Past Social History Smoking Status: Former Smoker - CARDIAC Hx Hypertension: Yes - PULMONARY Other/Comment: ex smoker - NEUROLOGICAL Hx Paralysis: No - HEENT Hx HEENT Problems: Yes (eyeglasses) - RENAL Hx Chronic Kidney Disease: No - ENDOCRINE/METABOLIC Hx Endocrine Disorders: No - HEMATOLOGICAL/ONCOLOGICAL Hx Blood Transfusions: No - INTEGUMENTARY Hx Dermatological Problems: Yes Other/Comment: redness and +3 pitting edema lle, healed old surgical scars both knees, swelling of lle chronic redness "comes and goees" - MUSCULOSKELETAL/RHEUMATOLOGICAL Hx Arthritis: Yes - GASTROINTESTINAL Hx Gastrointestinal Disorders: Yes (rectal bleed) Other/Comment: obese - GENITOURINARY/GYNECOLOGICAL Hx Prostate Problems: Yes (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) - PSYCHIATRIC Hx Emotional Abuse: No Hx Physical Abuse: No Hx Substance Use: No - SURGICAL HISTORY Other/Comment: bilateral knee replacement with L knee prosthesis - ANESTHESIA Hx Anesthesia Reactions: No Hx Malignant Hyperthermia: No Meds Allergies/Adverse Reactions: Allergies Allergy/AdvReac Type Severity Reaction Status Date / Time No Known Allergies Allergy Verified 08/12/18 07:26 - Medications Medications: Current Medications Acetaminophen (Tylenol 325mg Tab) 650 mg PO Q6H PRN PRN Reason: Fever >100.4 F Amlodipine Besylate (Norvasc) 5 mg PO DAILY [facility] Heparin Sodium (Porcine) (Heparin) 5,000 units SC Q12 FITZ; Protocol Sodium Chloride (Sodium Chloride 0.9%) 1,000 mls @ 75 mls/hr IV .[id number] FITZ Cefepime HCl (Maxipime 1gm) 1 gm in 100 mls @ 100 mls/hr IVPB Q12 FITZ; Protocol Vancomycin HCl (Vancomycin 1gm) 1 gm in 250 mls @ 167 mls/hr IVPB DAILY FITZ; Protocol Ibuprofen (Motrin Tab) 600 mg PO Q6H PRN PRN Reason: Pain, severe (8-10) Non-Formulary Medication (Multivit-Mins/Iron/Folic/Lycop [Centrum Men's Tablet]) 1 each PO DAILY FITZ Physical Exam - Constitutional Appears: Well, No Acute Distress - Head Exam Head Exam: ATRAUMATIC, NORMOCEPHALIC - Eye Exam Eye Exam: EOMI, Normal appearance, PERRL - ENT Exam ENT Exam: Mucous Membranes Moist - Respiratory Exam Respiratory Exam: NORMAL BREATHING PATTERN - Cardiovascular Exam Cardiovascular Exam: +S1, +S2 - Extremities Exam Additional comments: LLE: Old TKA scar well healed moderate effusion and swelling diffuse knee tenderness erythema, warmth and swelling to calf no lesions/masses/drainage Unable to assess ROM due to pain sensation intact SP/DP/TN motor intact EHL/FHL/TA/G pedal pulses intact - Neurological Exam Neurological exam: Alert, Oriented x3 - Psychiatric Exam Psychiatric exam: Normal Affect, Normal Mood - Skin Skin Exam: Normal Color, Warm Results - Vital Signs Recent Vital Signs: Last Vital Signs Temp 98.1 F 08/12/18 12:12 Pulse 101 H 08/12/18 07:34 Resp 20 08/12/18 12:12 BP 110/62 08/12/18 12:12 Pulse Ox 97 08/12/18 12:12 - Labs Result Diagrams: 08/13/18 06:35 08/13/18 06:35 Labs: Laboratory Results - last 24 hr 08/12/18 08/12/18 08/12/18 08:02 08:02 08:02 WBC 14.8 H RBC 4.17 Hgb 12.6 L Hct 38.7 L MCV 92.8 MCH 30.2 MCHC 32.6 RDW 15.6 H Plt Count 247 MPV 9.5 Gran % 88.5 H Lymph % (Auto) 5.1 L [place] % (Auto) 6.3 H Eos % (Auto) 0.0 L Baso % (Auto) 0.1 Gran # 13.11 H Lymph # (Auto) 0.8 L [place] # (Auto) 0.9 H Eos # (Auto) 0.0 Baso # (Auto) 0.01 ESR 82 H PT 14.1 H INR 1.22 APTT 31.2 pO2 VBG pH VBG pCO2 VBG HCO3 VBG Total CO2 VBG O2 Sat (Calc) VBG Base Excess VBG Potassium Glucose Lactate FiO2 Sodium 136 Potassium 4.3 Chloride 98 Carbon Dioxide 29 Anion Gap 13 BUN 17 Creatinine 1.0 Est GFR ( Amer) > 60 Est GFR (Non-Af Amer) > 60 Random Glucose 143 H Uric Acid 3.9 Calcium 9.2 Total Bilirubin 0.9 AST 34 ALT 24 Alkaline Phosphatase 67 Total Protein 8.3 Albumin 4.2 Globulin 4.2 Albumin/Globulin Ratio 1.0 L Venous Blood Potassium 08/12/18 12:24 WBC RBC Hgb Hct MCV MCH MCHC RDW Plt Count MPV Gran % Lymph % (Auto) [place] % (Auto) Eos % (Auto) Baso % (Auto) Gran # Lymph # (Auto) [place] # (Auto) Eos # (Auto) Baso # (Auto) ESR PT INR APTT pO2 93 H VBG pH 7.38 VBG pCO2 45.0 VBG HCO3 26.6 VBG Total CO2 28.0 VBG O2 Sat (Calc) 98.4 H VBG Base Excess 1.0 VBG Potassium 3.4 L Glucose 120 H Lactate 1.2 FiO2 21.0 Sodium 134.0 Potassium Chloride 100.0 Carbon Dioxide Anion Gap BUN Creatinine Est GFR ( Amer) Est GFR (Non-Af Amer) Random Glucose Uric Acid Calcium Total Bilirubin AST ALT Alkaline Phosphatase Total Protein Albumin Globulin Albumin/Globulin Ratio Venous Blood Potassium 3.4 L - Impressions Impression: Accession No. : [id number] Patient Name / ID : REN DARDEN / [id number] Exam Date : 08/12/2018 09:17:59 ( Approved ) Study Comment : Sex / Age : M 7Y Creator : Mo Montague MD Dictator : Mo Montague MD Color Checker : Presiding Judge : Mo Montague MD Approver2 : Report Date : 08/12/2018 10:30:51 My Comment : Date of service: 08/12/2018 PROCEDURE: Left Knee Radiographs. HISTORY: Pain. COMPARISON: None. FINDINGS: BONES: Prior left knee arthroplasty prosthetic devices in situ without evidence of loosening or disruption otherwise. No fracture, subluxation or dislocation id entified. Mild suprapatellar bursa effusion identified. JOINTS: As above. JOINT EFFUSION: As above. OTHER FINDINGS: None. IMPRESSION: Status post left knee arthroplasty without evidence of loosening appreciable. Small suprapatellar bursa effusion evident. No acute fracture, subluxation or dislocation identified. Accession No. : [id number] Patient Name / ID : REN DARDEN / [id number] Exam Date : 08/12/2018 08:47:01 ( Approved ) Study Comment : Sex / Age : Y Creator : Saeid Parker MD Dictator : Saeid Parker MD Color Checker : Presiding Judge : Saeid Parker MD Approver2 : Report Date : 08/12/2018 13:39:40 My Comment : PROCEDURE: Left lower extremity venous US HISTORY: Leg pain and swelling. Evaluate for DVT. PHYSICIAN(S): Saeid Kong MD. TECHNIQUE: Duplex sonography and color-flow Doppler with graded compression were used to evaluate the deep venous system of the left lower extremity. The exam is limited by edema. FINDINGS: The visualized deep venous system of the left lower extremity is sonographically normal and compressible. Normal wave forms and augmentation are seen. There is no sonographic evidence for deep venous thrombosis in the visualized segments of the left lower extremity. IMPRESSION: 1. No sonographic evidence for deep venous thrombosis in the visualized segments of the left lower extremity. Accession No. : [id number] Patient Name / ID : REN DARDEN / [id number] Exam Date : 08/12/2018 12:30:20 ( Approved ) Study Comment : Sex / Age : M / 77Y Creator : Sidney Farrar MD Dictator : Sidney Farrar MD Color Checker : Presiding Judge : Sidney Farrar MD Approver2 : Report Date : 08/12/2018 13:28:37 My Comment : Date of service: 08/12/2018 PROCEDURE: CT of the left knee HISTORY: L Leg pain, r/o fracture- include L knee COMPARISON: Plain film same day TECHNIQUE: Radiation dose: Total exam DLP = 555.12 mGy-cm. This CT exam was performed using one or more of the following dose reduction techniques: Automated exposure control, adjustment of the mA and/or kV according to patient size, and/or use of iterative reconstruction technique. FINDINGS: No evidence of fracture. There is a left knee prosthesis with no evidence of loosening. There is normal alignment. There is a moderate to large joint effusion. IMPRESSION: No evidence of fracture Assessment & Plan (1) Pain in prosthetic joint Assessment and Plan: -CT scan of the knee reveals no evidence of loosening -Dr. Flores recommends aspiration of left knee joint to send for cultures if the pain does not subside over the next 24 hours -If there is evidence of septic prosthesis, recommend referral/transfer to prior orthopedic surgeon who performed primary TKA -f/u labs in AM -monitor for fever -pain control -will follow patient -above d/w Dr. Flores in agreement Status: Acute - Date & Time Date: 08/12/18 Time: 12:59
--- NOTE | 2018-08-12 13:34 | CT ---
Date of service: 08/12/2018 PROCEDURE: CT of the left knee HISTORY: L Leg pain, r/o fracture- include L knee COMPARISON: Plain film same day TECHNIQUE: Radiation dose: Total exam DLP = 555.12 mGy-cm. This CT exam was performed using one or more of the following dose reduction techniques: Automated exposure control, adjustment of the mA and/or kV according to patient size, and/or use of iterative reconstruction technique. FINDINGS: No evidence of fracture. There is a left knee prosthesis with no evidence of loosening. There is normal alignment. There is a moderate to large joint effusion. IMPRESSION: No evidence of fracture
[2018-08-12] MEDS: Cefepime 1gm in NS 100ml 1 GM/100 ML BAG IVPB SCH ×2 (13:57→22:38)
[2018-08-12] MEDS: Sodium Chloride 0.9% 1,000 ML IV SCH (14:08)
[2018-08-12] MEDS ORDERED: Lidocaine 1% Inj (20ml) IJ STA (15:56)
[2018-08-12] MEDS ORDERED: Influenza Vaccine 60 mcg/0.5 mL SYR (4YR UP) IM ONE (16:11)
[2018-08-12] MEDS ORDERED: Pneumococcal 23-Valent Vaccine IM ONE (16:11)
[2018-08-13] MEDS: Vancomycin 1gm in NS 250ml 1 GM/250 ML BAG IVPB SCH ×3 (00:07→22:13)
[2018-08-13 07:05] LABS: GRAN # 8.5 (1.4-6.5); GRAN % 84.2 % (50.0-68.0); HEMOGLOBIN 11.6 g/dL (14.0-18.0); LYMPH # 0.9 (1.2-3.4); LYMPH % 8.6 % (22.0-35.0); MEAN CELL VOLUME 92.5 fl (80.0-105.0); MEAN CORPUSCULAR HEMOGLOBIN 29.8 pg (25.0-35.0); MEAN CORPUSCULAR HGB CONC 32.2 g/dl (31.0-37.0); MEAN PLATELET VOLUME 10.1 fl (7.0-11.0); MONO # 0.7 (0.1-0.6); MONO % 7.2 % (1.0-6.0); RBC 3.89 10^6/uL (3.5-6.1); RED CELL DISTRIBUTION WIDTH 15.7 % (11.5-14.5); WHITE BLOOD COUNT 10.1 10^3/uL (4.5-11.0)
[2018-08-13 07:12] LABS: ALB/GLOB RATIO 0.9 (1.1-1.8); ALBUMIN 3.5 g/dL (3.0-4.8); ALT/SGPT 21 U/L (7-56); AST/SGOT 26 U/L (17-59); BLOOD UREA NITROGEN 18 mg/dL (7-21); GFR NON-AFRICAN AMERICAN > 60
--- NOTE | 2018-08-13 07:17 | CP.PCM.PN ---
<Sameer Armas - Last Filed: 08/13/18 14:29> Subjective - Date & Time of Evaluation Date of Evaluation: 08/13/18 Time of Evaluation: 07:15 - Subjective Subjective: PGY1 Medicine Progress Note for Dr. Salazar Patient was seen and evaluated at bedside this morning. Patient without complaints. No acute events. Patient was able to tolerate breakfast without issue. Patient states he was seen by Ortho who stated to him that they will come today to perform Left Knee tap. Patient continues to admit to left knee pain and decreased range of motion, however remainder of 12 point ROS is unremarkable. Objective - Vital Signs/Intake and Output Vital Signs (last 24 hours): Temp Pulse Resp BP Pulse Ox 98.1 F 101 H 20 110/62 97 08/12/18 12:12 08/12/18 15:53 08/12/18 15:53 08/12/18 12:12 08/12/18 12:12 Intake and Output: 08/13/18 08/13/18 06:59 18:59 Intake Total 420 Output Total 400 Balance 20 - Medications Medications: Current Medications Acetaminophen (Tylenol 325mg Tab) 650 mg PO Q6H PRN PRN Reason: Fever >100.4 F Amlodipine Besylate (Norvasc) 5 mg PO DAILY [facility] Sodium Chloride (Sodium Chloride 0.9%) 1,000 mls @ 75 mls/hr IV .[id number] [facility] Last Admin: 08/12/18 14:08 Dose: Not Given Cefepime HCl (Maxipime 1gm) 1 gm in 100 mls @ 100 mls/hr IVPB Q12 [facility]; Protocol Last Admin: 08/12/18 22:38 Dose: 100 mls/hr Vancomycin HCl (Vancomycin 1gm) 1 gm in 250 mls @ 167 mls/hr IVPB Q12 [facility]; Protocol Last Admin: 08/13/18 00:07 Dose: 167 mls/hr Ibuprofen (Motrin Tab) 600 mg PO Q6H PRN PRN Reason: Pain, severe (8-10) Last Admin: 08/13/18 01:11 Dose: 600 mg Non-Formulary Medication (Multivit-Mins/Iron/Folic/Lycop [Centrum Men's Tablet]) 1 each PO DAILY [facility] - Labs Labs: 08/13/18 06:35 08/13/18 06:35 PT 14.1 SECONDS (9.4-12.5) H 08/12/18 08:02 INR 1.22 08/12/18 08:02 APTT 31.2 Seconds (25.1-36.5) 08/12/18 08:02 - Additional Findings Additional findings: - Constitutional Appears: No Acute Distress - Head Exam Head Exam: ATRAUMATIC, NORMAL INSPECTION, NORMOCEPHALIC - Eye Exam Eye Exam: Normal appearance, PERRL Pupil Exam: NORMAL ACCOMODATION - ENT Exam ENT Exam: Mucous Membranes Moist - Respiratory Exam Respiratory Exam: Clear to Auscultation Bilateral, NORMAL BREATHING PATTERN. absent: Rales, Rhonchi, Wheezes - Cardiovascular Exam Cardiovascular Exam: Tachycardia, REGULAR RHYTHM, +S1, +S2. absent: Gallop, Rubs, Systolic Murmur - GI/Abdominal Exam GI & Abdominal Exam: Normal Bowel Sounds, Soft. absent: Guarding, Mass, Rebound, Rigid, Tenderness - Extremities Exam Extremities exam: Positive for: normal capillary refill, pedal pulses present. Negative for: full ROM (decreased range of motion of L LE ), joint swelling, normal inspection, pedal edema Additional comments: L LE is erythematous and warm with +1 edema. No drainage noted. Arthritic nodules in ankle and feet (bilaterally). No effusion noted in the knee R LE arthritic nodules on feet LLE: Old TKA scar well healed moderate effusion and swelling diffuse knee tenderness erythema, warmth and swelling to calf no lesions/masses/drainage Unable to assess ROM due to pain sensation intact SP/DP/TN motor intact EHL/FHL/TA/G pedal pulses intact - Neurological Exam Neurological exam: Alert, CN II-XII Intact, Oriented x3 - Psychiatric Exam Psychiatric exam: Normal Affect, Normal Mood - Skin Skin Exam: Dry, Intact, Warm Assessment and Plan - Assessment and Plan (Free Text) Assessment: Assessment: This is a 78-year-old Male with past medical history of HTN, prostate ca (tx w/ radiation and hormone therapy- in remission), bilateral knee replacement, and left leg cellulitis who was admitted for sudden left leg swelling. Of note, Patient was found to have suprapatellar burisitis and is status-post tap performed by Ortho on 08/13. Sepsis Criteria Met on Admission Likely 2/2 Left Knee Cellulitis vs Septic Knee - SIRS (tachycardic, leukocytosis, temp 100.5) - most likely secondary to L LE cellulitis - will rule out gout and septic L knee - Patient states he was provided with prescription for Augmentin 875mg BID #14 (confirmed by pharmacy) which he was prescribed as an outpatient on 07/22 as prophylaxis while he was away on vacation. - Status-post left knee tap done by Ortho on 08/13 * Ordered: Gram stain, wound culture, fungus culture, mycobacteria cultures * Ordered: Synovial fluid- LDH, Glucose, and Uric Acid - Septic work up pending (blood culture, urine culture, procal) - Left lower extremity CT pending, L knee Xray within normal limits - L LE duplex US prelim negative- final read pending - CXR 08/12- no evidence of pneumonia - Continue Tylenol prn fever, motrin prn pain - Continue Cefepime and Vancomycin - Continue NS@75 - Ortho consulted- discussed case with Dr. Flores - Fall precautions - PT eval and treat - Appropriate pain management (On motrin and toradol PRN) History of Hypertension - Patient is normotensive - Continue Norvasc 5mg daily - Monitor DVT ppx: Hep SC GI ppx: not indicated at this time Dispo: Will get PT eval for weight baring status Case seen, discussed and reviewed with Dr. Marie Armas PGY1 <Tomasz Salazar - Last Filed: 08/13/18 15:17> Objective - Vital Signs/Intake and Output Vital Signs (last 24 hours): Temp Pulse Resp BP Pulse Ox 99.4 F 86 20 103/55 L 94 L 08/13/18 14:00 08/13/18 14:00 08/13/18 14:00 08/13/18 14:00 08/13/18 14:00 Intake and Output: 08/13/18 08/13/18 06:59 18:59 Intake Total 420 Output Total 400 Balance 20 - Medications Medications: Current Medications Acetaminophen (Tylenol 325mg Tab) 650 mg PO Q6H PRN PRN Reason: Fever >100.4 F Amlodipine Besylate (Norvasc) 5 mg PO DAILY [facility] Last Admin: 08/13/18 09:24 Dose: 5 mg Sodium Chloride (Sodium Chloride 0.9%) 1,000 mls @ 75 mls/hr IV .[id number] [facility] Last Admin: 08/12/18 14:08 Dose: Not Given Cefepime HCl (Maxipime 1gm) 1 gm in 100 mls @ 100 mls/hr IVPB Q12 [facility]; Protocol Last Admin: 08/13/18 09:25 Dose: 100 mls/hr Vancomycin HCl (Vancomycin 1gm) 1 gm in 250 mls @ 167 mls/hr IVPB Q12 [facility]; Protocol Last Admin: 08/13/18 09:24 Dose: 167 mls/hr Ibuprofen (Motrin Tab) 600 mg PO Q6H PRN PRN Reason: Pain, severe (8-10) Last Admin: 08/13/18 09:30 Dose: 600 mg Ketorolac Tromethamine (Toradol) 30 mg IVP Q6H PRN PRN Reason: Pain, moderate (4-7) Non-Formulary Medication (Multivit-Mins/Iron/Folic/Lycop [Centrum Men's Tablet]) 1 each PO DAILY [facility] Last Admin: 08/13/18 09:32 Dose: Not Given - Labs Labs: 08/13/18 06:35 08/13/18 06:35 PT 14.1 SECONDS (9.4-12.5) H 08/12/18 08:02 INR 1.22 08/12/18 08:02 APTT 31.2 Seconds (25.1-36.5) 08/12/18 08:02 Attending/Attestation - Attestation I have personally seen and examined this patient.: Yes I have fully participated in the care of the patient.: Yes I have reviewed all pertinent clinical information, including history, physical exam and plan: Yes Notes (Text): 08/13/18 15:15 attending note; Patient seen and examined with resident. patient is alert and awake. Still complaining of left knee pain. Left leg swelling and redness improved. Denies any fevers, chills. Denies any urinary, bowel complaints. Patient is a 78 year old male with past medical history of HTN, prostate ca (tx w/ radiation and hormone therapy- in remission), bilateral knee replacement, and Left leg cellulitis is admitted for left leg pain and knee pain. Patient was not able to stand because of the pain. left leg cellulitis; started on vancomycin and cefepime. redness improved significantly. Left knee swelling; orthopedic evaluation appreciated. CT of the left knee showed moderate effusion. Status post arthrocentesis today. follow up culture results lower extremity Doppler is negative for DVT. Pain management with Motrin prn. physical therapy evaluation requested. Upon discharge the patient will follow up with PMD Dr. Ball.
[2018-08-13] MEDS: Cefepime 1gm in NS 100ml 1 GM/100 ML BAG IVPB SCH ×2 (09:25→21:00)
[2018-08-13] MEDS: IRON PO SCH (09:32)
[2018-08-13] MEDS: LYCOP PO SCH (09:32)
[2018-08-13] MEDS: MULTIVIT MINS PO SCH (09:32)
[2018-08-13] MEDS: FOLIC PO SCH (09:32)
--- NOTE | 2018-08-13 09:45 | RAD ---
Date of service: 08/12/2018 PROCEDURE: Radiographs of the left tibia and fibula. HISTORY: r/o fx COMPARISON: None available. TECHNIQUE: Frontal and lateral views obtained. FINDINGS: BONES: No fracture or destructive lesion. JOINT SPACES: Unremarkable. OTHER FINDINGS: The there is a left knee prosthesis with no fracture or loosening IMPRESSION: Unremarkable radiographs of the left tibia and fibula.
--- NOTE | 2018-08-13 09:46 | RAD ---
Date of service: 08/12/2018 PROCEDURE: Left Femur Radiographs. HISTORY: r/o fx COMPARISON: None. TECHNIQUE: AP and Lateral Radiographs of the left femur. FINDINGS: FEMUR: Normal. No fracture. SOFT TISSUES: Normal. OTHER FINDINGS: None. IMPRESSION: Unremarkable radiographs of the left femur.
--- NOTE | 2018-08-13 10:29 | CP.PCM.PN ---
Subjective - Date & Time of Evaluation Date of Evaluation: 08/13/18 Time of Evaluation: 08:20 - Subjective Subjective: pt is a 77 y.o. male with PMHX of hypertension, osteoarthritis, prostate cancer, and bilateral knee replacement (2005) presented in ED complaining of limited range of motion in the left knee. Patient states he was walking to his bed when he noticed his knee "gave out" and he had trouble moving it or ambulating on it. Today, pt was seen and examined at bedside. Noted that L knee is swollen with tenderness on palpation. Per pt, his L knee is usually more swollen than the R and uses compression stockings at home to help with the swelling. Objective - Vital Signs/Intake and Output Vital Signs (last 24 hours): Temp Pulse Resp BP Pulse Ox 97.8 F 86 20 131/80 95 08/13/18 06:00 08/13/18 09:24 08/13/18 06:00 08/13/18 09:24 08/13/18 06:00 Intake and Output: 08/13/18 08/13/18 06:59 18:59 Intake Total 420 Output Total 400 Balance 20 - Medications Medications: Current Medications Acetaminophen (Tylenol 325mg Tab) 650 mg PO Q6H PRN PRN Reason: Fever >100.4 F Amlodipine Besylate (Norvasc) 5 mg PO DAILY [facility] Last Admin: 08/13/18 09:24 Dose: 5 mg Sodium Chloride (Sodium Chloride 0.9%) 1,000 mls @ 75 mls/hr IV .[id number] [facility] Last Admin: 08/12/18 14:08 Dose: Not Given Cefepime HCl (Maxipime 1gm) 1 gm in 100 mls @ 100 mls/hr IVPB Q12 [facility]; Protocol Last Admin: 08/13/18 09:25 Dose: 100 mls/hr Vancomycin HCl (Vancomycin 1gm) 1 gm in 250 mls @ 167 mls/hr IVPB Q12 [facility]; Protocol Last Admin: 08/13/18 09:24 Dose: 167 mls/hr Ibuprofen (Motrin Tab) 600 mg PO Q6H PRN PRN Reason: Pain, severe (8-10) Last Admin: 08/13/18 09:30 Dose: 600 mg Non-Formulary Medication (Multivit-Mins/Iron/Folic/Lycop [Centrum Men's Tablet]) 1 each PO DAILY [facility] Last Admin: 08/13/18 09:32 Dose: Not Given - Labs Labs: 08/13/18 06:35 08/13/18 06:35 PT 14.1 SECONDS (9.4-12.5) H 08/12/18 08:02 INR 1.22 08/12/18 08:02 APTT 31.2 Seconds (25.1-36.5) 08/12/18 08:02 - Constitutional Appears: Well, Non-toxic, No Acute Distress - Head Exam Head Exam: ATRAUMATIC, NORMAL INSPECTION, NORMOCEPHALIC - Eye Exam Eye Exam: Normal appearance, PERRL - ENT Exam ENT Exam: Mucous Membranes Moist, Normal Exam - Neck Exam Neck Exam: Full ROM - Respiratory Exam Respiratory Exam: Clear to Ausculation Bilateral, NORMAL BREATHING PATTERN - Cardiovascular Exam Cardiovascular Exam: REGULAR RHYTHM, +S1, +S2 - GI/Abdominal Exam GI & Abdominal Exam: Normal Bowel Sounds - Rectal Exam Rectal Exam: Deferred - Extremities Exam Additional comments: L knee with tenderness on palpation, +swelling and warm to touch. - Neurological Exam Neurological Exam: Alert, Awake, Oriented x3 Assessment and Plan - Assessment and Plan (Free Text) Assessment: pt is a 77 y.o. male with PMHX of hypertension, osteoarthritis, prostate cancer, and bilateral knee replacement (2005) presented in ED complaining of limited range of motion in the left knee. Patient states he was walking to his bed when he noticed his knee "gave out" and he had trouble moving it or ambulating on it. Today, pt was seen and examined at bedside. Noted that L knee is swollen with tenderness on palpation. Per pt, his L knee is usually more swollen than the R and uses compression stockings at home to help with the swelling. Septic work up is on progress, ruling out L LE cellulitis vs gout vs septic L knee. Plan: Pending blood culture/urine culture Procal 0.84/ESR 82 Ortho on board - possible aspiration of L knee joint Meds per NOV On Vanco IV/Cefepime IV/IVFs PT eval Will continue to follow
--- NOTE | 2018-08-13 12:36 | CP.PCM.PN ---
Subjective - Date & Time of Evaluation Date of Evaluation: 08/13/18 Time of Evaluation: 12:34 - Subjective Subjective: Patient seen and examined at bedside. Pain is unchanged from yesterday. Unable to bear weight with PT. No acute events overnight. Objective - Vital Signs/Intake and Output Vital Signs (last 24 hours): Temp Pulse Resp BP Pulse Ox 97.8 F 86 20 131/80 95 08/13/18 06:00 08/13/18 09:24 08/13/18 06:00 08/13/18 09:24 08/13/18 06:00 Intake and Output: 08/13/18 08/13/18 06:59 18:59 Intake Total 420 Output Total 400 Balance 20 - Medications Medications: Current Medications Acetaminophen (Tylenol 325mg Tab) 650 mg PO Q6H PRN PRN Reason: Fever >100.4 F Amlodipine Besylate (Norvasc) 5 mg PO DAILY [facility] Last Admin: 08/13/18 09:24 Dose: 5 mg Sodium Chloride (Sodium Chloride 0.9%) 1,000 mls @ 75 mls/hr IV .[id number] [facility] Last Admin: 08/12/18 14:08 Dose: Not Given Cefepime HCl (Maxipime 1gm) 1 gm in 100 mls @ 100 mls/hr IVPB Q12 [facility]; Protocol Last Admin: 08/13/18 09:25 Dose: 100 mls/hr Vancomycin HCl (Vancomycin 1gm) 1 gm in 250 mls @ 167 mls/hr IVPB Q12 [facility]; Protocol Last Admin: 08/13/18 09:24 Dose: 167 mls/hr Ibuprofen (Motrin Tab) 600 mg PO Q6H PRN PRN Reason: Pain, severe (8-10) Last Admin: 08/13/18 09:30 Dose: 600 mg Ketorolac Tromethamine (Toradol) 30 mg IVP Q6H PRN PRN Reason: Pain, moderate (4-7) Non-Formulary Medication (Multivit-Mins/Iron/Folic/Lycop [Centrum Men's Tablet]) 1 each PO DAILY [facility] Last Admin: 08/13/18 09:32 Dose: Not Given - Labs Labs: 08/13/18 06:35 08/13/18 06:35 PT 14.1 SECONDS (9.4-12.5) H 08/12/18 08:02 INR 1.22 08/12/18 08:02 APTT 31.2 Seconds (25.1-36.5) 08/12/18 08:02 - Extremities Exam Additional comments: LLE: Old TKA scar well healed moderate effusion and swelling diffuse knee tenderness erythema, warmth and swelling to calf no lesions/masses/drainage Unable to assess ROM due to pain sensation intact SP/DP/TN motor intact EHL/FHL/TA/G pedal pulses intact Assessment and Plan (1) Pain in prosthetic joint Assessment & Plan: -Left knee aspiration performed, synovial fluid samples sent for cultures and analysis -PT/OT WBAT -will f/u labs -pain control -abx as per ID -above d/w Dr. Flores in agreement Status: Acute Procedures Attestation:: I certify that I have explained the specified Operation(s) or Procedure(s), risks, benefits and reasonable alternatives to the Patient and/or other person responsible. The opportunity was given to ask questions and all questions answered - Joint Aspiration/Injection Joint #1 Consent Obtained: Verbal Consent Time Out Performed: Yes Side of Body: Left Joint Aspirated: Knee Ultrasound Guidance Used: No Skin Prep: Povidone-Iodine Local Anesthesia Used: Lidocaine 1% Amount of Anesthesia Used: 10 Needle Size Used: 18 g Fluid Clarity: Clear Total Fluid Removed (mls): 80 Patient Tolorated Procedure: Well Complications: None Additional comments: Fluid sent for cultures x 3, AFB, fungus and analysis
[2018-08-13 13:35] LABS: FLUID TYPE SYNOVIAL FLUID
[2018-08-13 14:00] LABS: SF GROSS APPEARANCE TURBID (CLEAR)
[2018-08-13] MEDS: Sodium Chloride 0.9% 1,000 ML IV SCH ×2 (20:21)
[2018-08-14 07:00] LABS: EOS % 0.1 % (1.5-5.0); GRAN # 6.71 (1.4-6.5); HEMOGLOBIN 11.5 g/dL (14.0-18.0); LYMPH # 0.6 (1.2-3.4); LYMPH % 7.4 % (22.0-35.0); MEAN CELL VOLUME 91.1 fl (80.0-105.0); MEAN CORPUSCULAR HEMOGLOBIN 29.9 pg (25.0-35.0); MEAN CORPUSCULAR HGB CONC 32.9 g/dl (31.0-37.0); MEAN PLATELET VOLUME 10.1 fl (7.0-11.0); MONO # 0.8 (0.1-0.6); MONO % 9.5 % (1.0-6.0); RBC 3.84 10^6/uL (3.5-6.1); RED CELL DISTRIBUTION WIDTH 15.5 % (11.5-14.5); WHITE BLOOD COUNT 8.1 10^3/uL (4.5-11.0)
[2018-08-14 07:10] LABS: ALB/GLOB RATIO 0.9 (1.1-1.8); ALBUMIN 3.2 g/dL (3.0-4.8); ALT/SGPT 21 U/L (7-56); AST/SGOT 26 U/L (17-59); BLOOD UREA NITROGEN 14 mg/dL (7-21); CALCIUM 8.7 mg/dL (8.4-10.5); GFR NON-AFRICAN AMERICAN > 60
[2018-08-14] MEDS: Vancomycin 1gm in NS 250ml 1 GM/250 ML BAG IVPB SCH ×2 (09:57→22:46)
[2018-08-14] MEDS: Cefepime 1gm in NS 100ml 1 GM/100 ML BAG IVPB SCH ×2 (09:57→21:26)
[2018-08-14] MEDS: LYCOP PO SCH (10:05)
[2018-08-14] MEDS: IRON PO SCH (10:05)
[2018-08-14] MEDS: MULTIVIT MINS PO SCH (10:05)
[2018-08-14] MEDS: FOLIC PO SCH (10:05)
--- NOTE | 2018-08-14 14:14 | CP.PCM.PN ---
Subjective - Date & Time of Evaluation Date of Evaluation: 08/14/18 Time of Evaluation: 14:14 - Subjective Subjective: Patient seen and examined at bedside comfortable. Pain is much improved following aspiration. Able to tolerate PT and transfer with minimal assistance. No other complaints. Objective - Vital Signs/Intake and Output Vital Signs (last 24 hours): Temp Pulse Resp BP Pulse Ox 97.4 F L 90 18 120/73 98 08/14/18 06:00 08/14/18 09:58 08/14/18 06:00 08/14/18 09:58 08/14/18 06:00 Intake and Output: 08/14/18 08/14/18 06:59 18:59 Intake Total 240 Output Total 500 Balance -260 - Medications Medications: Current Medications Acetaminophen (Tylenol 325mg Tab) 650 mg PO Q6H PRN PRN Reason: Fever >100.4 F Amlodipine Besylate (Norvasc) 5 mg PO DAILY [facility] Last Admin: 08/14/18 09:58 Dose: 5 mg Cefepime HCl (Maxipime 1gm) 1 gm in 100 mls @ 100 mls/hr IVPB Q12 [facility]; Protocol Last Admin: 08/14/18 09:57 Dose: 100 mls/hr Vancomycin HCl (Vancomycin 1gm) 1 gm in 250 mls @ 167 mls/hr IVPB Q12 [facility]; Protocol Last Admin: 08/14/18 09:57 Dose: 167 mls/hr Ibuprofen (Motrin Tab) 600 mg PO Q6H PRN PRN Reason: Pain, severe (8-10) Last Admin: 08/14/18 09:58 Dose: 600 mg Ketorolac Tromethamine (Toradol) 15 mg IVP Q6H PRN PRN Reason: Pain, moderate (4-7) Non-Formulary Medication (Multivit-Mins/Iron/Folic/Lycop [Centrum Men's Tablet]) 1 each PO DAILY [facility] Last Admin: 08/14/18 10:05 Dose: Not Given - Labs Labs: 08/14/18 06:30 08/14/18 06:30 PT 14.1 SECONDS (9.4-12.5) H 08/12/18 08:02 INR 1.22 08/12/18 08:02 APTT 31.2 Seconds (25.1-36.5) 08/12/18 08:02 - Extremities Exam Additional comments: LLE: Old TKA scar well healed minimal effusion and swelling knee tenderness improved erythema, warmth and swelling to calf improved no lesions/masses/drainage ROM 0-30 sensation intact SP/DP/TN motor intact EHL/FHL/TA/G pedal pulses intact Assessment and Plan (1) Pain in prosthetic joint Assessment & Plan: -Cell count reveals high WBC count relative to prosthetic joint, 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 Flores recommends for patient to return to orthopedic surgeon who performed primary prosthesis for possible antibiotic spacer and revision TKA -will continue to follow -above d/w Dr. Flores in agreement Status: Acute
--- NOTE | 2018-08-14 14:34 | CP.PCM.PN ---
<Angela Hamlin - Last Filed: 08/14/18 14:31> Subjective - Date & Time of Evaluation Date of Evaluation: 08/14/18 Time of Evaluation: 14:31 - Subjective Subjective: INTERNAL MEDICINE PROGRESS NOTE FOR DR. CARO Hamlin PGY1 Pt seen and examined at bedside this am. Pt underwent aspiration of L knee yesterday, tolerated procedure well. Synovial fluid sent for analysis. He is tolerating diet well. He will undergo PT today. 12 point ROS is negative. Objective - Vital Signs/Intake and Output Vital Signs (last 24 hours): Temp Pulse Resp BP Pulse Ox 97.4 F L 90 18 120/73 98 08/14/18 06:00 08/14/18 09:58 08/14/18 06:00 08/14/18 09:58 08/14/18 06:00 Intake and Output: 08/14/18 08/14/18 06:59 18:59 Intake Total 240 Output Total 500 Balance -260 - Medications Medications: Current Medications Acetaminophen (Tylenol 325mg Tab) 650 mg PO Q6H PRN PRN Reason: Fever >100.4 F Amlodipine Besylate (Norvasc) 5 mg PO DAILY [facility]Z Last Admin: 08/14/18 09:58 Dose: 5 mg Cefepime HCl (Maxipime 1gm) 1 gm in 100 mls @ 100 mls/hr IVPB Q12 FITZ; Protocol Last Admin: 08/14/18 09:57 Dose: 100 mls/hr Vancomycin HCl (Vancomycin 1gm) 1 gm in 250 mls @ 167 mls/hr IVPB Q12 FITZ; Protocol Last Admin: 08/14/18 09:57 Dose: 167 mls/hr Ibuprofen (Motrin Tab) 600 mg PO Q6H PRN PRN Reason: Pain, severe (8-10) Last Admin: 08/14/18 09:58 Dose: 600 mg Ketorolac Tromethamine (Toradol) 15 mg IVP Q6H PRN PRN Reason: Pain, moderate (4-7) Non-Formulary Medication (Multivit-Mins/Iron/Folic/Lycop [Centrum Men's Tablet]) 1 each PO DAILY FITZ Last Admin: 08/14/18 10:05 Dose: Not Given - Labs Labs: 08/14/18 06:30 08/14/18 06:30 PT 14.1 SECONDS (9.4-12.5) H 08/12/18 08:02 INR 1.22 08/12/18 08:02 APTT 31.2 Seconds (25.1-36.5) 08/12/18 08:02 - Additional Findings Additional findings: - Constitutional Appears: No Acute Distress - Head Exam Head Exam: ATRAUMATIC, NORMAL INSPECTION, NORMOCEPHALIC - Eye Exam Eye Exam: Normal appearance, PERRL Pupil Exam: NORMAL ACCOMODATION - ENT Exam ENT Exam: Mucous Membranes Moist - Respiratory Exam Respiratory Exam: Clear to Auscultation Bilateral, NORMAL BREATHING PATTERN. absent: Rales, Rhonchi, Wheezes - Cardiovascular Exam Cardiovascular Exam: Tachycardia, REGULAR RHYTHM, +S1, +S2. absent: Gallop, Rubs, Systolic Murmur - GI/Abdominal Exam GI & Abdominal Exam: Normal Bowel Sounds, Soft. absent: Guarding, Mass, Rebound, Rigid, Tenderness - Extremities Exam Extremities exam: Positive for: normal capillary refill, pedal pulses present. Negative for: full ROM (decreased range of motion of L LE ), joint swelling, normal inspection, pedal edema Additional comments: L LE is erythematous and warm with +1 edema. No drainage noted. Arthritic nodules in ankle and feet (bilaterally). No effusion noted in the knee R LE arthritic nodules on feet LLE: Old TKA scar well healed moderate effusion and swelling diffuse knee tenderness no lesions/masses/drainage sensation intact SP/DP/TN motor intact EHL/FHL/TA/G pedal pulses intact - Neurological Exam Neurological exam: Alert, CN II-XII Intact, Oriented x3 - Psychiatric Exam Psychiatric exam: Normal Affect, Normal Mood - Skin Skin Exam: Dry, Intact, Warm Assessment and Plan - Assessment and Plan (Free Text) Assessment: This is a 78-year-old Male with past medical history of HTN, prostate ca (tx w/ radiation and hormone therapy- in remission), bilateral knee replacement, and left leg cellulitis who was admitted for sudden left leg swelling. Of note, Patient was found to have suprapatellar burisitis and is status-post tap performed by Ortho on 08/13. 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 fluid was straw colored, non-purulent. synovial fluid sent for cultures/analysis fluid WBC < 50,000. unlikely septic arthritis f/u synovial cultures, gram stain, crystals, Continue aggressive PT pain management with tylenol, motrin, toradol PT accepted for TCU, discharge tomorrow to TCU L leg cellulitis continue vancomycin, cefepime f/u wound/blood/synovial fluid cultures DVT ppx: SCD Case seen, examined and discussed with attending physician, Dr. Salazar <Tomasz Salazar - Last Filed: 08/15/18 17:14> Objective - Vital Signs/Intake and Output Vital Signs (last 24 hours): Temp Pulse Resp BP Pulse Ox 99 F 85 20 122/75 95 08/15/18 06:00 08/15/18 06:00 08/15/18 06:00 08/15/18 06:00 08/15/18 06:00 Intake and Output: 08/15/18 08/15/18 06:59 18:59 Intake Total 880 Output Total 400 Balance 480 - Medications Medications: Current Medications Acetaminophen (Tylenol 325mg Tab) 650 mg PO Q6H PRN PRN Reason: Fever >100.4 F Amlodipine Besylate (Norvasc) 5 mg PO DAILY [facility] Last Admin: 08/15/18 10:09 Dose: 5 mg Enoxaparin Sodium (Lovenox) 40 mg SC DAILY FITZ; Protocol Last Admin: 08/15/18 10:10 Dose: 40 mg Cefepime HCl (Maxipime 1gm) 1 gm in 100 mls @ 100 mls/hr IVPB Q12 FITZ; Protocol Last Admin: 08/15/18 10:10 Dose: 100 mls/hr Vancomycin HCl (Vancomycin 1gm) 1 gm in 250 mls @ 167 mls/hr IVPB Q12 FITZ; Protocol Last Admin: 08/15/18 10:10 Dose: 167 mls/hr Ibuprofen (Motrin Tab) 600 mg PO Q6H PRN PRN Reason: Pain, severe (8-10) Last Admin: 08/15/18 10:09 Dose: 600 mg Ketorolac Tromethamine (Toradol) 15 mg IVP Q6H PRN PRN Reason: Pain, moderate (4-7) Non-Formulary Medication (Multivit-Mins/Iron/Folic/Lycop [Centrum Men's Tablet]) 1 each PO DAILY FITZ Last Admin: 08/14/18 10:05 Dose: Not Given - Labs Labs: 08/15/18 06:50 08/15/18 06:50 PT 14.1 SECONDS (9.4-12.5) H 08/12/18 08:02 INR 1.22 08/12/18 08:02 APTT 31.2 Seconds (25.1-36.5) 08/12/18 08:02 Attending/Attestation - Attestation I have personally seen and examined this patient.: Yes I have fully participated in the care of the patient.: Yes I have reviewed all pertinent clinical information, including history, physical exam and plan: Yes Notes (Text): 08/15/18 17:12 attending note; Patient seen and examined with resident. patient is alert and awake. left knee pain is improving slowly. Able to do therapy. Left leg swelling and redness improved. Denies any fevers, chills. Denies any urinary, bowel complaints. Patient is a 78 year old male with past medical history of HTN, prostate ca (tx w/ radiation and hormone therapy- in remission), bilateral knee replacement, and Left leg cellulitis is admitted for left leg pain and knee pain. left leg cellulitis; started on vancomycin and cefepime. redness improved significantly. Left knee swelling; orthopedic evaluation appreciated. Status post arthrocentesis yesterday. showes elevated white count. pending Gram stain and cultures results . Will discuss with orthopedics . lower extremity Doppler is negative for DVT. Pain management with Motrin prn. physical therapy evaluation appreciated. TCU recommended. Upon discharge the patient will follow up with PMD Dr. Ball.
[2018-08-14 21:49] VITALS: RESP 20
[2018-08-15 07:14] LABS: BASO # 0.01 K/mm3 (0.0-2.0); BASO % 0.2 % (0.0-3.0); EOS % 0.5 % (1.5-5.0); GRAN # 4.67 (1.4-6.5); GRAN % 78.5 % (50.0-68.0); HEMOGLOBIN 10.5 g/dL (14.0-18.0); LYMPH # 0.8 (1.2-3.4); LYMPH % 13.4 % (22.0-35.0); MEAN CELL VOLUME 89.9 fl (80.0-105.0); MEAN CORPUSCULAR HEMOGLOBIN 29.6 pg (25.0-35.0); MEAN CORPUSCULAR HGB CONC 32.9 g/dl (31.0-37.0); MEAN PLATELET VOLUME 9.7 fl (7.0-11.0); MONO # 0.4 (0.1-0.6); MONO % 7.4 % (1.0-6.0); RBC 3.55 10^6/uL (3.5-6.1); RED CELL DISTRIBUTION WIDTH 15.6 % (11.5-14.5)
--- NOTE | 2018-08-15 07:21 | CP.PCM.PN ---
Subjective - Date & Time of Evaluation Date of Evaluation: 08/15/18 Time of Evaluation: 07:13 - Subjective Subjective: PGY1 Medicine Progress Note for Dr. Salazar Patient seen and examined at bedside this morning. Patient status-post aspiration of left knee 08/13. Synovial fluid sent for analysis. Patient is tolerating diet well. Patient will undergo Physical Therapy today. 12 point ROS is negative. Objective - Vital Signs/Intake and Output Vital Signs (last 24 hours): Temp Pulse Resp BP Pulse Ox 98.2 F 91 H 20 103/64 94 L 08/14/18 21:48 08/14/18 21:48 08/14/18 21:48 08/14/18 21:48 08/14/18 21:48 Intake and Output: 08/15/18 08/15/18 06:59 18:59 Intake Total 880 Output Total 400 Balance 480 - Medications Medications: Current Medications Acetaminophen (Tylenol 325mg Tab) 650 mg PO Q6H PRN PRN Reason: Fever >100.4 F Amlodipine Besylate (Norvasc) 5 mg PO DAILY FITZ Last Admin: 08/14/18 09:58 Dose: 5 mg Cefepime HCl (Maxipime 1gm) 1 gm in 100 mls @ 100 mls/hr IVPB Q12 FITZ; Protocol Last Admin: 08/14/18 21:26 Dose: 100 mls/hr Vancomycin HCl (Vancomycin 1gm) 1 gm in 250 mls @ 167 mls/hr IVPB Q12 FITZ; Protocol Last Admin: 08/14/18 22:46 Dose: 167 mls/hr Ibuprofen (Motrin Tab) 600 mg PO Q6H PRN PRN Reason: Pain, severe (8-10) Last Admin: 08/14/18 17:22 Dose: 600 mg Ketorolac Tromethamine (Toradol) 15 mg IVP Q6H PRN PRN Reason: Pain, moderate (4-7) Non-Formulary Medication (Multivit-Mins/Iron/Folic/Lycop [Centrum Men's Tablet]) 1 each PO DAILY FITZ Last Admin: 08/14/18 10:05 Dose: Not Given - Labs Labs: 08/14/18 06:30 08/14/18 06:30 PT 14.1 SECONDS (9.4-12.5) H 08/12/18 08:02 INR 1.22 08/12/18 08:02 APTT 31.2 Seconds (25.1-36.5) 08/12/18 08:02 - Additional Findings Additional findings: - Constitutional Appears: No Acute Distress - Head Exam Head Exam: ATRAUMATIC, NORMAL INSPECTION, NORMOCEPHALIC - Eye Exam Eye Exam: Normal appearance, PERRL Pupil Exam: NORMAL ACCOMODATION - ENT Exam ENT Exam: Mucous Membranes Moist - Respiratory Exam Respiratory Exam: Clear to Auscultation Bilateral, NORMAL BREATHING PATTERN. absent: Rales, Rhonchi, Wheezes - Cardiovascular Exam Cardiovascular Exam: Tachycardia, REGULAR RHYTHM, +S1, +S2. absent: Gallop, Rubs, Systolic Murmur - GI/Abdominal Exam GI & Abdominal Exam: Normal Bowel Sounds, Soft. absent: Guarding, Mass, Rebound, Rigid, Tenderness - Extremities Exam Extremities exam: Positive for: normal capillary refill, pedal pulses present. Negative for: full ROM (decreased range of motion of L LE ), joint swelling, normal inspection, pedal edema Additional comments: L LE is erythematous and warm with +1 edema. No drainage noted. Arthritic nodules in ankle and feet (bilaterally). No effusion noted in the knee R LE arthritic nodules on feet LLE: Old TKA scar well healed moderate effusion and swelling diffuse knee tenderness no lesions/masses/drainage sensation intact SP/DP/TN motor intact EHL/FHL/TA/G pedal pulses intact - Neurological Exam Neurological exam: Alert, CN II-XII Intact, Oriented x3 - Psychiatric Exam Psychiatric exam: Normal Affect, Normal Mood - Skin Skin Exam: Dry, Intact, Warm Assessment and Plan - Assessment and Plan (Free Text) Assessment: This is a 78-year-old Male with past medical history of HTN, prostate ca (tx w/ radiation and hormone therapy- in remission), bilateral knee replacement, and left leg cellulitis who was admitted for sudden left leg swelling. Of note, Patient was found to have suprapatellar burisitis and is status-post tap performed by Ortho on 08/13. Left Prosthetic Knee Effusion, Rule-Out Septic Knee - Patient met SIRS on admission (tachycardic, leukocytosis, temp 100.5) - Will rule out gout and septic L knee - Status-post left knee tap done by Ortho on 08/13 * Fluid was straw colored, non-purulent. * Synovial fluid sent for cultures/analysis fluid WBC < 50,000 * Ordered: Gram stain, fungus culture, mycobacteria cultures * Results: wound culture: gram positive cocci, - Septic work up pending (blood culture, urine culture, procal) - L LE duplex US prelim negative- final read pending - CXR 08/12- no evidence of pneumonia - Continue Tylenol prn fever, motrin prn pain - Continue Cefepime and Vancomycin - Ortho consulted- discussed case with Dr. Flores - Fall precautions - Continue aggressive PT - Appropriate pain management (On motrin and toradol PRN) History of Hypertension - Patient is normotensive - Continue Norvasc 5mg daily - Monitor DVT ppx: Lovenox 40mg SC daily GI ppx: not indicated at this time Dispo: Will get PT eval for weight baring status Case seen, discussed and reviewed with Dr. Marie Armas PGY1
[2018-08-15 07:50] LABS: ALB/GLOB RATIO 0.8 (1.1-1.8); ALBUMIN 3.1 g/dL (3.0-4.8); ALT/SGPT 31 U/L (7-56); AST/SGOT 37 U/L (17-59); BLOOD UREA NITROGEN 13 mg/dL (7-21); CALCIUM 8.7 mg/dL (8.4-10.5); GFR NON-AFRICAN AMERICAN > 60
[2018-08-15] MEDS ORDERED: Potassium Chloride 20 mEq ER Tab PO STA (08:07)
[2018-08-15 08:46] VITALS: BP 122/75; PULSE 85; TEMP 99; O2SAT 95
[2018-08-15] MEDS ORDERED: Enoxaparin 40 mg Syringe SC SCH (10:00)
[2018-08-15] MEDS: Cefepime 1gm in NS 100ml 1 GM/100 ML BAG IVPB SCH (10:10)
[2018-08-15] MEDS: Vancomycin 1gm in NS 250ml 1 GM/250 ML BAG IVPB SCH (10:10)
--- NOTE | 2018-08-15 14:25 | CP.PCM.CON ---
<Farhad Tubbs - Last Filed: 08/15/18 14:18> History of Present Illness - History of Present Illness History of Present Illness: Consult Note for ID Service - Dr. Bernabe CC: Lt leg weakness and pain HPI: 78 M with a PMHx of b/l TKR, prostate Ca s/p radiation in remission, that presented to the [facility] for Lt Lower Leg pain and weakness. Pt noticed there was more swelling in his knee than normally and tender. Pt rated the pain as a achy pain 7/10. He claims he was unable to put any weight on his affected leg. As per family, pt was on a recent cruise and had no trauma or difficulty weight bearing at that time. In the ED, patient bilateral legs were warm to touch. Left lower leg appeared syed and swollen. Patient states left leg is usually syed and swollen, and currently under the care of Dr. Kong last visit 05/2018. Pt denied any scratches or trauma to site. He denied chills, shortness of breath, chest pains, abdominal pains, nausea, vomiting, diarrhea, constipation, or urinary s ymptoms. PMHx: HTN, Prostate CA (last check up in March with [facility]), L leg cellulitis PSHx: Bilateral knee replacement in 2005 PSx: Former smoker 2ppd for 10 years, Social EtOH use, denies drug use, Pt lives alone. He is able to do his ADL and ADLi independently. Uses cane as needed. FamHx: Dad- from lung ca, Mom- from colon ca Home meds: Norvasc 5mg qd, Centrum Silver Allergies: NKDA PMD: Dr. Cunha Anaesthesiologist: Dr. Ortega Review of Systems - Review of Systems Review of Systems: as per HPI otherwise negative Past Patient History - Infectious Disease Hx of Infectious Diseases: None - Past Medical History & Family History Past Medical History?: Yes Past Family History: Reviewed and not pertinent - Past Social History Smoking Status: Former Smoker - CARDIAC Hx Cardiac Disorders: Yes Hx Hypertension: Yes - PULMONARY Other/Comment: ex smoker - NEUROLOGICAL Hx Paralysis: No - HEENT Hx HEENT Problems: Yes (eyeglasses) - RENAL Hx Chronic Kidney Disease: No - ENDOCRINE/METABOLIC Hx Endocrine Disorders: No - HEMATOLOGICAL/ONCOLOGICAL Hx Blood Transfusions: No - INTEGUMENTARY Hx Dermatological Problems: Yes Other/Comment: redness and +3 pitting edema lle, healed old surgical scars both knees, swelling of lle chronic redness "comes and goees" - MUSCULOSKELETAL/RHEUMATOLOGICAL Hx Arthritis: Yes - GASTROINTESTINAL Hx Gastrointestinal Disorders: Yes (rectal bleed) Other/Comment: obese - GENITOURINARY/GYNECOLOGICAL Hx Prostate Problems: Yes (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) - PSYCHIATRIC Hx Emotional Abuse: No Hx Physical Abuse: No Hx Substance Use: No - SURGICAL HISTORY Other/Comment: bilateral knee replacement with L knee prosthesis - ANESTHESIA Hx Anesthesia Reactions: No Hx Malignant Hyperthermia: No Meds Home Medications: Home Medication List Medication Instructions Recorded Confirmed Type Acetaminophen [Tylenol 325mg tab] 650 mg PO Q6H PRN tab 08/15/18 Rx Ibuprofen [Motrin Tab] 600 mg PO Q6H PRN tab 08/15/18 Rx Allergies/Adverse Reactions: Allergies Allergy/AdvReac Type Severity Reaction Status Date / Time No Known Allergies Allergy Verified 08/12/18 07:26 - Medications Medications: Current Medications Acetaminophen (Tylenol 325mg Tab) 650 mg PO Q6H PRN PRN Reason: Fever >100.4 F Amlodipine Besylate (Norvasc) 5 mg PO DAILY [facility] Last Admin: 08/15/18 10:09 Dose: 5 mg Enoxaparin Sodium (Lovenox) 40 mg SC DAILY [facility]Z; Protocol Last Admin: 08/15/18 10:10 Dose: 40 mg Cefepime HCl (Maxipime 1gm) 1 gm in 100 mls @ 100 mls/hr IVPB Q12 FITZ; Protocol Last Admin: 08/15/18 10:10 Dose: 100 mls/hr Vancomycin HCl (Vancomycin 1gm) 1 gm in 250 mls @ 167 mls/hr IVPB Q12 FITZ; Protocol Last Admin: 08/15/18 10:10 Dose: 167 mls/hr Ibuprofen (Motrin Tab) 600 mg PO Q6H PRN PRN Reason: Pain, severe (8-10) Last Admin: 08/15/18 10:09 Dose: 600 mg Ketorolac Tromethamine (Toradol) 15 mg IVP Q6H PRN PRN Reason: Pain, moderate (4-7) Non-Formulary Medication (Multivit-Mins/Iron/Folic/Lycop [Centrum Men's Tablet]) 1 each PO DAILY FITZ Last Admin: 08/14/18 10:05 Dose: Not Given Physical Exam - Constitutional Appears: No Acute Distress - Head Exam Head Exam: ATRAUMATIC, NORMAL INSPECTION, NORMOCEPHALIC - Eye Exam Eye Exam: EOMI, Normal appearance, PERRL Pupil Exam: NORMAL ACCOMODATION, PERRL - ENT Exam ENT Exam: Mucous Membranes Moist, Normal Exam - Neck Exam Neck exam: Positive for: Normal Inspection - Respiratory Exam Respiratory Exam: Clear to Auscultation Bilateral, NORMAL BREATHING PATTERN - Cardiovascular Exam Cardiovascular Exam: REGULAR RHYTHM, +S1, +S2 - GI/Abdominal Exam GI & Abdominal Exam: Normal Bowel Sounds, Soft. absent: Tenderness - Extremities Exam Extremities exam: Positive for: joint swelling, tenderness Additional comments: L knee - Neurological Exam Neurological exam: Alert, CN II-XII Intact, Oriented x3 - Psychiatric Exam Psychiatric exam: Normal Affect, Normal Mood - Skin Skin Exam: Dry, Intact, Normal Color, Warm Results - Vital Signs Recent Vital Signs: Last Vital Signs Temp 99 F 08/15/18 06:00 Pulse 85 08/15/18 06:00 Resp 20 08/15/18 06:00 BP 122/75 08/15/18 06:00 Pulse Ox 95 08/15/18 06:00 - Labs Result Diagrams: 08/15/18 06:50 08/15/18 06:50 Labs: Laboratory Results - last 24 hr 08/15/18 08/15/18 06:50 06:50 WBC 6.0 D RBC 3.55 Hgb 10.5 L Hct 31.9 L MCV 89.9 MCH 29.6 MCHC 32.9 RDW 15.6 H Plt Count 235 MPV 9.7 Gran % 78.5 H Lymph % (Auto) 13.4 L Ford % (Auto) 7.4 H Eos % (Auto) 0.5 L Baso % (Auto) 0.2 Gran # 4.67 Lymph # (Auto) 0.8 L Ford # (Auto) 0.4 Eos # (Auto) 0.0 Baso # (Auto) 0.01 Sodium 136 Potassium 3.3 L Chloride 103 Carbon Dioxide 26 Anion Gap 10 BUN 13 Creatinine 0.6 L Est GFR ( Amer) > 60 Est GFR (Non-Af Amer) > 60 Random Glucose 132 H Calcium 8.7 Total Bilirubin 0.6 AST 37 ALT 31 Alkaline Phosphatase 126 D Total Protein 6.9 Albumin 3.1 Globulin 3.8 Albumin/Globulin Ratio 0.8 L Assessment & Plan - Assessment and Plan (Free Text) Assessment: 78M with past medical history of HTN, prostate ca with thoracolumbar mets, curr ently in remission s/p radiation and hormone therapy, bilateral knee replacement, and left leg cellulitis who was admitted for sudden left leg swelling. Left infected knee prosthesis -s/p tap performed by Ortho on 08/13/18 - Cell count reveals infected knee prosthesis, Gm + cocci, tx as OM - 6 wk vanco cefepime until culture sens - awaiting cultures -PT/OT WBAT -abx as per ID -Dr. Flores recommends for patient to return to orthopedic surgeon who performed primary prosthesis for possible antibiotic spacer and revision TKA -will continue to follow - lower extremity Doppler is negative for DVT. - likely transfer to [place] for washout Seen reviewed and discussed with Dr. Bernabe <Yayo Bernabe - Last Filed: 08/15/18 17:57> Results - Vital Signs Recent Vital Signs: Last Vital Signs Temp 99 F 08/15/18 06:00 Pulse 85 08/15/18 06:00 Resp 20 08/15/18 06:00 BP 122/75 08/15/18 06:00 Pulse Ox 95 08/15/18 06:00 - Labs Result Diagrams: 08/15/18 06:50 08/15/18 06:50 Labs: Laboratory Results - last 24 hr 08/15/18 08/15/18 06:50 06:50 WBC 6.0 D RBC 3.55 Hgb 10.5 L Hct 31.9 L MCV 89.9 MCH 29.6 MCHC 32.9 RDW 15.6 H Plt Count 235 MPV 9.7 Gran % 78.5 H Lymph % (Auto) 13.4 L Ford % (Auto) 7.4 H Eos % (Auto) 0.5 L Baso % (Auto) 0.2 Gran # 4.67 Lymph # (Auto) 0.8 L Ford # (Auto) 0.4 Eos # (Auto) 0.0 Baso # (Auto) 0.01 Sodium 136 Potassium 3.3 L Chloride 103 Carbon Dioxide 26 Anion Gap 10 BUN 13 Creatinine 0.6 L Est GFR ( Amer) > 60 Est GFR (Non-Af Amer) > 60 Random Glucose 132 H Calcium 8.7 Total Bilirubin 0.6 AST 37 ALT 31 Alkaline Phosphatase 126 D Total Protein 6.9 Albumin 3.1 Globulin 3.8 Albumin/Globulin Ratio 0.8 L Assessment & Plan - Assessment and Plan (Free Text) Assessment: Infectious diseases Attending Physician Attestation Patient seen and examined, discussed with director medical surgical. I have reviewed the patient's history of present illness, past medical, social, personal and family histories, pertinent physical exam findings, course so far in this hospital admission, pertinent laboratory and imaging results. I agree with the above findings, assessment and plan. 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 Initial gram stain showing gram positive cocci and we are awaiting final culture results. Discussed with medical team - patient needs further Ortho procedures and patient is to be transferred to another facility for this.
--- NOTE | 2018-08-15 16:31 | CP.PCM.DIS ---
<Sameer Armas - Last Filed: 08/15/18 16:31> Provider - Provider Date of Admission: 08/12/18 11:06 Attending physician: Tomasz Salazar MD Primary care physician: Dr. Ball Consults: 08/12/18 11:30 Physician Consult Routine Comment: Consulting Provider: Marcelino Flores Consulting Physician: Marcelino Flores Reason for Consult: L knee pain 08/12/18 15:43 Social Work Referral Routine Comment: d/c plan Physician Instructions: Reason For Exam: eval 08/13/18 17:55 Evaluation for TRCU Routine Comment: Physician Instructions: Reason For Exam: tcu eval 08/15/18 06:59 Consult [Physician Consult] Routine Comment: Consulting Provider: Dl Holland Consulting Physician: Dl Holland Reason for Consult: septic joint Time Spent in preparation of Discharge (in minutes): 45 Diagnosis - Discharge Diagnosis (1) Fever Status: Acute (2) Leukocytosis Status: Acute (3) Pain in prosthetic joint Status: Acute (4) Abnormal x-ray Status: Acute (5) At risk for sepsis Status: Acute (6) Weakness Status: Acute (7) Left leg cellulitis Status: Suspected Priority: High Hospital Course - Lab Results Lab Results: Micro Results 08/13/18 12:11 Other: Please Indicate Fungal Culture - Preliminary 08/13/18 12:13 Other: Please Indicate Mycobacterial Culture - Preliminary 08/13/18 12:00 Knee - Left Gram Stain - Final 08/13/18 12:00 Knee - Left Wound Culture - Final Group G Streptococcus 08/13/18 12:00 Knee - Left Gram Stain - Final 08/13/18 12:00 Knee - Left Wound Culture - Final Group G Streptococcus 08/13/18 12:00 Knee - Left Gram Stain - Final 08/13/18 12:00 Knee - Left Wound Culture - Final Group G Streptococcus 08/12/18 12:24 Blood-Venous Blood Culture - Preliminary NO GROWTH AFTER 3 DAYS 08/12/18 12:00 Blood-Venous Blood Culture - Preliminary NO GROWTH AFTER 3 DAYS Most Recent Lab Values WBC 6.0 10^3/uL (4.5-11.0) D 08/15/18 06:50 RBC 3.55 10^6/uL (3.5-6.1) 08/15/18 06:50 Hgb 10.5 g/dL (14.0-18.0) L 08/15/18 06:50 Hct 31.9 % (42.0-52.0) L 08/15/18 06:50 MCV 89.9 fl (80.0-105.0) 08/15/18 06:50 MCH 29.6 pg (25.0-35.0) 08/15/18 06:50 MCHC 32.9 g/dl (31.0-37.0) 08/15/18 06:50 RDW 15.6 % (11.5-14.5) H 08/15/18 06:50 Plt Count 235 10^3/uL (120.0-450.0) 08/15/18 06:50 MPV 9.7 fl (7.0-11.0) 08/15/18 06:50 Gran % 78.5 % (50.0-68.0) H 08/15/18 06:50 Lymph % (Auto) 13.4 % (22.0-35.0) L 08/15/18 06:50 Ralls % (Auto) 7.4 % (1.0-6.0) H 08/15/18 06:50 Eos % (Auto) 0.5 % (1.5-5.0) L 08/15/18 06:50 Baso % (Auto) 0.2 % (0.0-3.0) 08/15/18 06:50 Gran # 4.67 (1.4-6.5) 08/15/18 06:50 Lymph # (Auto) 0.8 (1.2-3.4) L 08/15/18 06:50 Ralls # (Auto) 0.4 (0.1-0.6) 08/15/18 06:50 Eos # (Auto) 0.0 (0.0-0.7) 08/15/18 06:50 Baso # (Auto) 0.01 K/mm3 (0.0-2.0) 08/15/18 06:50 ESR 82 mm/hr (0.00-15.0) H 08/12/18 08:02 PT 14.1 SECONDS (9.4-12.5) H 08/12/18 08:02 INR 1.22 08/12/18 08:02 APTT 31.2 Seconds (25.1-36.5) 08/12/18 08:02 pO2 93 mm/Hg (30-55) H 08/12/18 12:24 VBG pH 7.38 (7.32-7.43) 08/12/18 12:24 VBG pCO2 45.0 (40-60) 08/12/18 12:24 VBG HCO3 26.6 mmol/l (21-28) 08/12/18 12:24 VBG Total CO2 28.0 mmol.L (22-28) 08/12/18 12:24 VBG O2 Sat (Calc) 98.4 % (40-65) H 08/12/18 12:24 VBG Base Excess 1.0 mmol/L (0.0-2.0) 08/12/18 12:24 VBG Potassium 3.4 mmol/L (3.6-5.2) L 08/12/18 12:24 Sodium 134.0 mmol/L (132-148) 08/12/18 12:24 Chloride 100.0 mmol/L (98-107) 08/12/18 12:24 Glucose 120 mg/dl (75-110) H 08/12/18 12:24 Lactate 1.2 mmol/L (0.7-2.1) 08/12/18 12:24 FiO2 21.0 % 08/12/18 12:24 Sodium 136 mmol/L (132-148) 08/15/18 06:50 Potassium 3.3 mmol/L (3.6-5.0) L 08/15/18 06:50 Chloride 103 mmol/L (98-107) 08/15/18 06:50 Carbon Dioxide 26 mmol/L (21-33) 08/15/18 06:50 Anion Gap 10 (10-20) 08/15/18 06:50 BUN 13 mg/dL (7-21) 08/15/18 06:50 Creatinine 0.6 mg/dl (0.8-1.5) L 08/15/18 06:50 Est GFR ( Amer) > 60 08/15/18 06:50 Est GFR (Non-Af Amer) > 60 08/15/18 06:50 Random Glucose 132 mg/dL (70-110) H 08/15/18 06:50 Uric Acid 4.0 mg/dL (3.5-8.5) 08/12/18 11:30 Calcium 8.7 mg/dL (8.4-10.5) 08/15/18 06:50 Total Bilirubin 0.6 mg/dL (0.2-1.3) 08/15/18 06:50 AST 37 U/L (17-59) 08/15/18 06:50 ALT 31 U/L (7-56) 08/15/18 06:50 Alkaline Phosphatase 126 U/L (38-126) D 08/15/18 06:50 Total Protein 6.9 g/dL (5.8-8.3) 08/15/18 06:50 Albumin 3.1 g/dL (3.0-4.8) 08/15/18 06:50 Globulin 3.8 gm/dL 08/15/18 06:50 Albumin/Globulin Ratio 0.8 (1.1-1.8) L 08/15/18 06:50 Procalcitonin 0.84 NG/ML (0.19-0.49) H 08/12/18 12:24 Venous Blood Potassium 3.4 mmol/L (3.6-5.2) L 08/12/18 12:24 Fluid Type Synovial fluid 08/13/18 12:00 Synovial WBC 31315.0 /uL (0.0-150.0) H 08/13/18 12:00 Synovial RBC 74564.0 /uL (0.0-0.0) H 08/13/18 12:00 Synovial Mononuclear 22.9 % (0-0) H 08/13/18 12:00 Synov Polymorphonuclear 77.1 % (0-0) H 08/13/18 12:00 Synovial Specific Grav 1.020 08/13/18 12:00 Synovial Fluid Comment TEST NOT PERFORMED 08/13/18 12:00 - Hospital Course Hospital Course: PGY1 Medicine Hospital Course and Discharge Summary for Dr. Salazar Mr. Hernadez is a 78yo male with past medical history of HTN, prostate ca (treatment w/ radiation and hormone therapy- in remission), bilateral knee replacement, and left leg cellulitis who came to [facility] ED on 08/12 with a chief complaint of sudden L leg weakness. Patient reports he got up earlier that morning and suddenly his "knee gave out". Patient did not fall and/or hitting his head. Patient denied losing consciousness. Patient stated that his left leg was more swollen and red than usual. He was unable to bare weight. Patient reported he had recently traveled on a cruise with his son and had no trouble walking at the time. They went to the [facility] for 8 days and only left the boat once for a "couple of hours". Patient otherwise denied fever/chills, chest pain, shortness of breath, nausea/vomiting/diarrhea, numbness/tingling, dysuria or hematuria. Patient denied ever having history of gout. Please see report for more detailed summary. While in the ED, CMP was obtained and revealed hypokalemia which was repleted. CBC was obtained and revealed leukocytosis. Patient was tachycardic, and sky=081.5F, Left-Knee X-ray was obtained, and Ultrasound of Left Lower Extremity was obtained and was negative for DVT (see full report for more detail). Patient met Sepsis criteria and was subsequently admitted to the hospital to rule-out septic knee and further evaluation. See Patient's chart for details. Orthopedic Surgery (Dr. Flores) was consulted. ID (Dr. Bernabe) was consulted. Patient was treated with empiric antibiotics, tylenol and motrin for fever and pain respectively. Patient's electrolytes were repleted as needed, and Patient received gentle hydration. Physical Therapy was consulted for evaluation and therapy. The following day (08/13), the Patient underwent Left Knee Tap performed by Orthopedic Surgery Team (Dr. Flores). Cell count reveals infected knee prosthesis, Gram positive cocci, Per Dr. Bernabe's recommendations, treat as Oste omyelitis (6 wk vanco cefepime until culture sensitivities return) Dr. Flores recommended that the Patient to return to Orthopedic Surgeon who performed primary prosthesis for possible antibiotic spacer and revision TKA. On 08/15, the Patient was transferred to [facility] for washout. All consultants agreed. Patient agreed. Accepting Physician at [facility]: Dr. Julian Pfeiffer. Patient was hemodynamically stable and medically optimized for transfer. Please see chart for details. Discharge Medications: - Amlodipine 5mg PO daily - Multi Vit 1 tab PO daily - Tylenol 650mg PO Q6H PRN for fever - Ibuprofen 600mg PO Q6H PRN for pain - Antibiotics: vancomycin and cefepime IV to be continued Patient seen and case discussed in detail with Dr. Marie Armas PGY1 Discharge Exam - Additional Findings Additional findings: - Constitutional Appears: No Acute Distress - Head Exam Head Exam: ATRAUMATIC, NORMAL INSPECTION, NORMOCEPHALIC - Eye Exam Eye Exam: Normal appearance, PERRL Pupil Exam: NORMAL ACCOMODATION - ENT Exam ENT Exam: Mucous Membranes Moist - Respiratory Exam Respiratory Exam: Clear to Auscultation Bilateral, NORMAL BREATHING PATTERN. absent: Rales, Rhonchi, Wheezes - Cardiovascular Exam Cardiovascular Exam: Tachycardia, REGULAR RHYTHM, +S1, +S2. absent: Gallop, Rubs, Systolic Murmur - GI/Abdominal Exam GI & Abdominal Exam: Normal Bowel Sounds, Soft. absent: Guarding, Mass, Rebound, Rigid, Tenderness - Extremities Exam Extremities exam: Positive for: normal capillary refill, pedal pulses present. Negative for: full ROM (decreased range of motion of L LE ), joint swelling, normal inspection, pedal edema Additional comments: L LE is erythematous and warm with +1 edema. No drainage noted. Arthritic nodules in ankle and feet (bilaterally). No effusion noted in the knee R LE arthritic nodules on feet LLE: Old TKA scar well healed moderate effusion and swelling diffuse knee tenderness no lesions/masses/drainage sensation intact SP/DP/TN motor intact EHL/FHL/TA/G pedal pulses intact - Neurological Exam Neurological exam: Alert, CN II-XII Intact, Oriented x3 - Psychiatric Exam Psychiatric exam: Normal Affect, Normal Mood - Skin Skin Exam: Dry, Intact, Warm Discharge Plan - Follow Up Plan Condition: STABLE Disposition: OTHER INSTITUTION Instructions: Leukocytosis (DC), Leukocytosis (GEN) Additional Instructions: Patient is to transfer to [facility]. Accepting Physician: Dr. Julian Mata Please continue all home medications as prescribed by PMD. Please follow-up with your PMD within 3-5 days of discharge. Please follow-up with Orthopedic surgery within 3-5 days of discharge. Please Return to the ED should your symptoms return. <Tomasz Salazar - Last Filed: 08/15/18 17:18> Provider - Provider Date of Admission: 08/12/18 11:06 Attending physician: Tomasz Salazar MD Consults: 08/12/18 11:30 Physician Consult Routine Comment: Consulting Provider: Marcelino Flores Consulting Physician: Marcelino Flores Reason for Consult: L knee pain 08/12/18 15:43 Social Work Referral Routine Comment: d/c plan Physician Instructions: Reason For Exam: eval 08/13/18 17:55 Evaluation for TRCU Routine Comment: Physician Instructions: Reason For Exam: tcu eval 08/15/18 06:59 Consult [Physician Consult] Routine Comment: Consulting Provider: Dl Holland Consulting Physician: Dl Holland Reason for Consult: septic joint Hospital Course - Lab Results Lab Results: Micro Results 08/13/18 12:11 Other: Please Indicate Fungal Culture - Preliminary 08/13/18 12:13 Other: Please Indicate Mycobacterial Culture - Preliminary 08/13/18 12:00 Knee - Left Gram Stain - Final 08/13/18 12:00 Knee - Left Wound Culture - Final Group G Streptococcus 08/13/18 12:00 Knee - Left Gram Stain - Final 08/13/18 12:00 Knee - Left Wound Culture - Final Group G Streptococcus 08/13/18 12:00 Knee - Left Gram Stain - Final 08/13/18 12:00 Knee - Left Wound Culture - Final Group G Streptococcus 08/12/18 12:24 Blood-Venous Blood Culture - Preliminary NO GROWTH AFTER 3 DAYS 08/12/18 12:00 Blood-Venous Blood Culture - Preliminary NO GROWTH AFTER 3 DAYS Most Recent Lab Values WBC 6.0 10^3/uL (4.5-11.0) D 08/15/18 06:50 RBC 3.55 10^6/uL (3.5-6.1) 08/15/18 06:50 Hgb 10.5 g/dL (14.0-18.0) L 08/15/18 06:50 Hct 31.9 % (42.0-52.0) L 08/15/18 06:50 MCV 89.9 fl (80.0-105.0) 08/15/18 06:50 MCH 29.6 pg (25.0-35.0) 08/15/18 06:50 MCHC 32.9 g/dl (31.0-37.0) 08/15/18 06:50 RDW 15.6 % (11.5-14.5) H 08/15/18 06:50 Plt Count 235 10^3/uL (120.0-450.0) 08/15/18 06:50 MPV 9.7 fl (7.0-11.0) 08/15/18 06:50 Gran % 78.5 % (50.0-68.0) H 08/15/18 06:50 Lymph % (Auto) 13.4 % (22.0-35.0) L 08/15/18 06:50 Ralls % (Auto) 7.4 % (1.0-6.0) H 08/15/18 06:50 Eos % (Auto) 0.5 % (1.5-5.0) L 08/15/18 06:50 Baso % (Auto) 0.2 % (0.0-3.0) 08/15/18 06:50 Gran # 4.67 (1.4-6.5) 08/15/18 06:50 Lymph # (Auto) 0.8 (1.2-3.4) L 08/15/18 06:50 Ralls # (Auto) 0.4 (0.1-0.6) 08/15/18 06:50 Eos # (Auto) 0.0 (0.0-0.7) 08/15/18 06:50 Baso # (Auto) 0.01 K/mm3 (0.0-2.0) 08/15/18 06:50 ESR 82 mm/hr (0.00-15.0) H 08/12/18 08:02 PT 14.1 SECONDS (9.4-12.5) H 08/12/18 08:02 INR 1.22 08/12/18 08:02 APTT 31.2 Seconds (25.1-36.5) 08/12/18 08:02 pO2 93 mm/Hg (30-55) H 08/12/18 12:24 VBG pH 7.38 (7.32-7.43) 08/12/18 12:24 VBG pCO2 45.0 (40-60) 08/12/18 12:24 VBG HCO3 26.6 mmol/l (21-28) 08/12/18 12:24 VBG Total CO2 28.0 mmol.L (22-28) 08/12/18 12:24 VBG O2 Sat (Calc) 98.4 % (40-65) H 08/12/18 12:24 VBG Base Excess 1.0 mmol/L (0.0-2.0) 08/12/18 12:24 VBG Potassium 3.4 mmol/L (3.6-5.2) L 08/12/18 12:24 Sodium 134.0 mmol/L (132-148) 08/12/18 12:24 Chloride 100.0 mmol/L (98-107) 08/12/18 12:24 Glucose 120 mg/dl (75-110) H 08/12/18 12:24 Lactate 1.2 mmol/L (0.7-2.1) 08/12/18 12:24 FiO2 21.0 % 08/12/18 12:24 Sodium 136 mmol/L (132-148) 08/15/18 06:50 Potassium 3.3 mmol/L (3.6-5.0) L 08/15/18 06:50 Chloride 103 mmol/L (98-107) 08/15/18 06:50 Carbon Dioxide 26 mmol/L (21-33) 08/15/18 06:50 Anion Gap 10 (10-20) 08/15/18 06:50 BUN 13 mg/dL (7-21) 08/15/18 06:50 Creatinine 0.6 mg/dl (0.8-1.5) L 08/15/18 06:50 Est GFR ( Amer) > 60 08/15/18 06:50 Est GFR (Non-Af Amer) > 60 08/15/18 06:50 Random Glucose 132 mg/dL (70-110) H 08/15/18 06:50 Uric Acid 4.0 mg/dL (3.5-8.5) 08/12/18 11:30 Calcium 8.7 mg/dL (8.4-10.5) 08/15/18 06:50 Total Bilirubin 0.6 mg/dL (0.2-1.3) 08/15/18 06:50 AST 37 U/L (17-59) 08/15/18 06:50 ALT 31 U/L (7-56) 08/15/18 06:50 Alkaline Phosphatase 126 U/L (38-126) D 08/15/18 06:50 Total Protein 6.9 g/dL (5.8-8.3) 08/15/18 06:50 Albumin 3.1 g/dL (3.0-4.8) 08/15/18 06:50 Globulin 3.8 gm/dL 08/15/18 06:50 Albumin/Globulin Ratio 0.8 (1.1-1.8) L 08/15/18 06:50 Procalcitonin 0.84 NG/ML (0.19-0.49) H 08/12/18 12:24 Venous Blood Potassium 3.4 mmol/L (3.6-5.2) L 08/12/18 12:24 Fluid Type Synovial fluid 08/13/18 12:00 Synovial WBC 85259.0 /uL (0.0-150.0) H 08/13/18 12:00 Synovial RBC 22189.0 /uL (0.0-0.0) H 08/13/18 12:00 Synovial Mononuclear 22.9 % (0-0) H 08/13/18 12:00 Synov Polymorphonuclear 77.1 % (0-0) H 08/13/18 12:00 Synovial Specific Grav 1.020 08/13/18 12:00 Synovial Fluid Comment TEST NOT PERFORMED 08/13/18 12:00 Attending/Attestation - Attestation I have personally seen and examined this patient.: Yes I have fully participated in the care of the patient.: Yes I have reviewed all pertinent clinical information, including history, physical exam and plan: Yes Notes (Text): 08/15/18 17:14 attending note; Patient seen and examined with resident. patient is alert and awake. left knee pain is improving slowly. Left leg swelling and redness improved. Denies any fevers, chills. Denies any urinary, bowel complaints. Patient is a 78 year old male with past medical history of HTN, prostate ca (tx w/ radiation and hormone therapy- in remission), bilateral knee replacement, and Left leg cellulitis is admitted for left leg pain and knee pain. left leg cellulitis; started on vancomycin and cefepime. redness improved significantly. Left knee swelling; orthopedic evaluation appreciated. Status post arthrocentesis; showes elevated white count. Gram stain is positive for gram-positive cocci. Identification and sensitivity pending. Case discussed with orthopedics in detail. ID evaluation appreciated. Patient will be transferred to [facility] for higher level of care. Patient needs antibiotic spacer and revision TKA. Transfer to [facility] today when bed available. Upon discharge the patient will follow up with PMD Dr. Ball. 08/15/18 17:16 08/15/18 17:18
[2018-08-17 07:18] LABS: GLUCOSE,SYNOVIAL FLUID <10 mg/dL
== END 2018-08-15 14:30 | disposition short-term general hospital (02) | DRG 560 ==
LOC: ED 07:23 → ERH 11:06 → 5RNO 13:14
PROVIDERS: ADMIT Internal Medicine; ATTEND Internal Medicine
PROC: 0S9D3ZX Drainage of Left Knee Joint, Percutaneous Approach, Diagnostic (ICD-10-PCS; principal; 2018-08-13)
DX: T84.84XA Pain due to internal orthopedic prosthetic devices, implants and grafts, initial encounter (principal); L03.116 Cellulitis of left lower limb; C79.51 Secondary malignant neoplasm of bone; T84.54XA Infection and inflammatory reaction due to internal left knee prosthesis, initial encounter; Z96.653 Presence of artificial knee joint, bilateral; M25.462 Effusion, left knee; B95.4 Other streptococcus as the cause of diseases classified elsewhere; E87.6 Hypokalemia; R26.2 Difficulty in walking, not elsewhere classified; I10 Essential (primary) hypertension; M19.90 Unspecified osteoarthritis, unspecified site; Y83.1 Surgical operation with implant of artificial internal device as the cause of abnormal reaction of the patient, or of later complication, without mention of misadventure at the time of the procedure; D72.829 Elevated white blood cell count, unspecified; R50.9 Fever, unspecified; Z87.891 Personal history of nicotine dependence; Z79.899 Other long term (current) drug therapy; Z85.46 Personal history of malignant neoplasm of prostate; Z92.3 Personal history of irradiation

== ENCOUNTER 2018-11-10 08:09 | Outpatient (CLI) | payer MEDICARE, BC | END 2018-11-10 08:10 | disposition home or self-care (01) | LOC: RAD 08:09 ==